=== PATIENT | male | born 1955 | race Caucasian/White ===

== ENCOUNTER 2022-11-29 08:54 | Outpatient (OUT) | payer MEDICARE, SELFPAY ==
--- NOTE | 2022-11-29 09:40 | CA_ITS ---
Patient: CARROL PADILLA Exam Date: 11/29/2022 : 1955 Gender:U Ordering : RAMONA TURNER [facility] Admission #: [id number] Family : DR EDMONDSON PinoMor MERAMARCO Order #: [id number] CLICK HERE TO VIEW EXAM ECHOCARDIOGRAM REPORT PROCEDURE: CA ECHO DOPPLER COMPLETE INDICATIONS: ATRIAL FIBRILLATION COMPARISON: None. DESCRIPTION: COMPLETE ECHOCARDIOGRAM Real-time transthoracic echocardiography with 2D, M-mode, spectral and color flow Doppler performed. QUALITY: Technical quality was limited. PST; [place] 73 248# 140/72 HR 57 LEFT VENTRICLE: Normal chamber size. Proximal septal hypertrophy (sigmoid septum). LV EF: Global left ventricular systolic function is hyperdynamic; visually estimated ejection fraction is 65 to 70%. No obvious regional wall motion abnormalities. DIASTOLIC: Unable to assess diastolic function. ATRIAL SEPTUM: Inadequately seen. LEFT ATRIUM: Mild dilatation. RIGHT ATRIUM: Mild dilatation. RIGHT VENTRICLE: Upper normal limits in size. Normal right ventricular systolic function. TRICUSPID VALVE: Normal mobility and thickness. No stenosis with no regurgitation. Unable to calculate right sided pressures due to lack of measurable tricuspid regurgitation. MITRAL VALVE: Normal mobility and thickness. No evidence of mitral valve stenosis. Mild mitral annular calcification. No mitral regurgitation. AORTIC VALVE: Focal aortic cusp calcification. No evidence of aortic valve stenosis. No aortic regurgitation. AORTIC ROOT: Normal diameter and appearance. PULMONIC VALVE: Not well visualized. No stenosis. Trivial regurgitation. PERICARDIUM: No evidence of pericardial effusion. IVC: Not well visualized. IVC is normal in size and appears to collapse with inspiration. CONCLUSION: 1. Global left ventricular systolic function is hyperdynamic; visually estimated ejection fraction is 65 to 70%. No obvious wall motion abnormalities. 2. Biatrial enlargement. 3. The right ventricle is upper normal limits in size. Normal right ventricular systolic function. 4. No significant valvular abnormalities. Adult Echocardiography Procedure Report Left Ventricle LVEDD (3.7 - 5.6 cm): 5.17 cm LVIVS thickness (0.6 - 1.2 cm): 1.11 cm LVOT Max Gradient: 6.65 mm[Hg] Peak Velocity (LVOT): 1.29 m/s LVOT Diameter 2.26 cm Left Atrium Mitral Valve MV E to A Ratio: 0.90 Right Ventricle RV Internal Diastolic Dimension: 4.05 cm Aorta Ascending Ao Diam: 3.27 cm Aortic Valve AoV Area (Peak Blayne): 3.46 cm2, 3.46 cm2 Peak Velocity(Antegrade Flow): 1.49 m/s, 1.49 m/s Peak Gradient(Antegrade Flow): 8.91 mm[Hg], 8.91 mm[Hg] Tricuspid Valve Pulmonic Valve Peak Gradient: 3.76 mm[Hg], 3.76 mm[Hg] Right Atrium Dictated by: Karina Calle M.D. on 12/01/2022 at 08:52 Approved by: Karina Calle M.D. on 12/01/2022 at 08:59
[2022-11-29] MEDS: SULFUR HEXAFLUORIDE MICROSPHR 25 MG (5ML VIAL) IV (12:09)
== END 2022-11-29 08:55 ==
LOC: CARD 09:03
PROVIDERS: PCP Family Medicine
DX: I48.19 Other persistent atrial fibrillation (principal); I51.7 Cardiomegaly; I51.9 Heart disease, unspecified
CPT/HCPCS: 93306; C8929; Q9950

== ENCOUNTER 2023-03-12 11:22 | Outpatient (OUT) | payer MEDICARE, SELFPAY ==
--- NOTE | 2023-03-12 11:35 | XR_ITS ---
The [address] [address] Patient Name: CARROL PADILLA MRN: [id number] date: 1955 Sex: U Assigned Patient Location: LAB Current Patient Location: LAB Accession/Order Number: [id number] Exam Date: 03/12/2023 11:40 Report Date: 03/12/2023 12:00 At the request of: EROS HUNTER Procedure: XR chest 2V PROCEDURE: XR chest 2V DATE: 03/12/2023 10:40 AM CDT COMPARISONS: 07/19/2012 CLINICAL INDICATION: 67 years Unknown Z79.899 FINDINGS: The cardiomediastinal silhouette and pulmonary vasculature are within normal limits. The lungs are clear. There is no evidence of pleural effusion or pneumothorax. XR/XR chest 2V IMPRESSION: Chest radiograph is within normal limits. Electronically authenticated by: ANUPAM WESTFALL Date: 03/12/2023 12:00
[2023-03-12 12:48] LABS: Free T4 1.06 ng/dL (0.76-1.46)
[2023-03-12 12:53] LABS: Alanine Aminotransferase 44 U/L (14-63); Albumin Level 3.7 g/dL (3.4-5.0); Alkaline Phosphatase 82 U/L (46-116); Aspartate Amino Transferase 26 U/L (15-37); Bilirubin Direct 0.2 mg/dL (0.0-0.2); Bilirubin Total 0.7 mg/dL (0.2-1.0); Globulin 3.6 g/dL; Thyroid Stimulating Hormone 4.468 uIU/mL (0.358-3.740); Total Protein 7.3 g/dL (6.4-8.2)
== END 2023-03-12 11:23 | disposition home or self-care (01) ==
LOC: LAB 11:22
PROVIDERS: PCP Family Medicine; Visit Provider Internal Medicine Cardiovascular Disease
DX: Z79.899 Other long term (current) drug therapy (principal)
CPT/HCPCS: 36415; 71046; 80076; 84439; 84443

== ENCOUNTER 2024-02-19 08:47 | Outpatient (OUT) | payer MEDICARE, SELFPAY ==
--- NOTE | 2024-02-19 09:00 | CA_ITS ---
Patient Name: CARROL PADILLA MR#: [id number] : 1955 Exam Date: 02/19/2024 Ordering Doctor: EROS HUNTER ECHOCARDIOGRAM REPORT PROCEDURE: CA ECHO DOPPLER COMPLETE INDICATIONS: Abnormal ECG, atrial fibrillation, hypertension COMPARISON: None. DESCRIPTION: COMPLETE ECHOCARDIOGRAM Real-time transthoracic echocardiography with 2D, M-mode, spectral and color flow Doppler performed. QUALITY: Technical quality was good. LEFT VENTRICLE: Normal chamber size. Mild concentric hypertrophy. Normal systolic function. LV EF: Normal left ventricular ejection fraction, (55-60%). DIASTOLIC: Diastolic function is indeterminate. ATRIAL SEPTUM: Visually appears intact. LEFT ATRIUM: Mild dilatation. RIGHT ATRIUM: Mild dilatation. RIGHT VENTRICLE: Mild dilatation. Normal right ventricular systolic function. TRICUSPID VALVE: Normal mobility and thickness. No stenosis with no regurgitation. Unable to assess right-sided pressures due to lack of measurable tricuspid regurgitation. MITRAL VALVE: Normal mobility and thickness. No evidence of mitral valve stenosis. Mild mitral annular calcification. Trivial mitral regurgitation. AORTIC VALVE: Normal trileaflet appearance. Normal leaflet mobility. No evidence of aortic valve stenosis. Multifocal calcifications. No aortic regurgitation. AORTIC ROOT: Normal diameter and appearance. Ascending aorta is normal in size. PULMONIC VALVE: Normal thickness and mobility. No stenosis. Trivial regurgitation. PERICARDIUM: No evidence of pericardial effusion. IVC: Within normal limits. PLEURA: CONCLUSION: 1. Mild concentric left ventricular hypertrophy with normal systolic function. LVEF is estimated at 55 to 60%. 2. Mildly dilated right ventricle with normal systolic function. 3. Mild biatrial dilatation. 4. No significant valvular dysfunction. 5. The patient appears to be in sinus rhythm during the exam. Adult Echocardiography Procedure Report Left Ventricle LVEDD (3.7 - 5.6 cm): 4.14 cm LVESD (2.2 - 4.0 cm): 2.74 cm LVIVS thickness (0.6 - 1.2 cm): 1.28 cm LVPW thickness (0.5 - 1.0 cm): 1.17 cm LVOT Max Gradient: 6 mm[Hg] Peak Velocity (LVOT): 123.00 cm/s LVOT Diameter 2.40 cm Left Ventricular Ejection Fraction: 55-60 % Left Atrium LA Volume Index (2D A2C): 90576 mm3 Left Atrium Systolic Dimension: 3.60 cm Mitral Valve MV E to A Ratio: 0.70 Mitral Valve A-Wave Peak Velocity: 85.40 cm/s Mitral Valve E-Wave Peak Velocity: 56.30 cm/s Cardiovascular Orifice Area: 2.20 cm2 Right Ventricle Aorta AO Root Diam: 3.30 cm Aortic Valve AoV Area (Peak Blayne): 4.15 cm2 Peak Velocity(Antegrade Flow): 134.00 cm/s Peak Gradient(Antegrade Flow): 7 mm[Hg] Tricuspid Valve Peak Velocity: 50.60 cm/s Pulmonic Valve Peak Velocity: 94.50 cm/s, 91.20 cm/s Peak Gradient: 3 mm[Hg] Right Atrium Dictated by: Jair Lara M.D. on 02/19/2024 at 19:43 Approved by: Jair Lara M.D. on 02/19/2024 at 19:46
== END 2024-02-19 08:48 | disposition home or self-care (01) ==
LOC: CARD 08:48
PROVIDERS: PCP Family Medicine; Visit Provider Internal Medicine Cardiovascular Disease
DX: R94.31 Abnormal electrocardiogram [ECG] [EKG] (principal)
CPT/HCPCS: 93306

== ENCOUNTER 2024-03-04 09:45 | Outpatient (OUT) | payer MEDICARE, SELFPAY ==
--- OUTSIDE RECORDS SUMMARY | 2024-03-04 10:12 | XMS_ITS | CCD ---
Author Organization [facility] CliniSytn Care Team Providers Care Engineering Specialist Technician Name Role Phone REQUEST, NONE LISTED Attending Unavailable REQUEST, NONE LISTED Consulting Unavailable REQUEST, NONE LISTED Admitting Unavailable Furlong Casey REED Primary Care Provider FURLONG, CASEY G Referring Unavailable FURLONG, CASEY G Primary Care Unavailable FURLONG, CASEY G Referring Unavailable FURLONG, CASEY G Primary Care Unavailable YUHASDESMOND Admitting Unavailable YUHAS, DESMOND Bojorquez Attending Unavailable YUHAS, DESMOND Bojorquez Referring Unavailable FURLONG, CASEY G Primary Care Unavailable YUHASDESMOND Attending Unavailable YUHASDESMOND Referring Unavailable FURLONG, CASEY G Primary Care Unavailable FURLONG, CASEY G Referring Unavailable FURLONG, CASEY G Primary Care Unavailable FURLONG, CASEY G Attending Unavailable FURLONG, CASEY G Referring Unavailable FURLONG, CASEY G Primary Care Unavailable FURLONG, CASEY G Referring Unavailable FURLONG, CASEY G Primary Care Unavailable FURLONG, CASEY G Attending Unavailable FURLONG, CASEY G Referring Unavailable FURLONG, CASEY G Primary Care Unavailable EROS HUNTER Attending Unavailable DALEEROS Lima Attending Unavailable Allergies Allergy Classification Reported Allergen(s) Allergy Type Date of Onset Reaction(s) Facility (1 source) Meperidine Drug Allergy 1 [facility] (5 sources) Morphine; Translations: [MORPHINE] Drug Allergy 8 [facility] (8 sources) Meperidine; Translations: [MEPERIDINE] Drug Allergy 8 Hives, Shortness Of Breath, Swelling [facility] (4 sources) Morphine Drug Allergy 8 Tachycardia, Palpitations [facility] (7 sources) Morphine; Translations: [MORPHINE SULFATE] Drug Allergy 2 Palpitations [facility] Work Phone: Medications Current Medications Medication Drug Class(es) Dates Sig (Normalized) Sig (Original) acetaminophen 325 mg oral tablet (4 sources) take 2 tablets by mouth every six hours as needed for pain acetaminophen (TYLENOL) 325 mg tablet Take 2 tablets (650 mg total) by mouth every 6 (six) hours as needed for pain. 0 Active [id number] 200 actuat albuterol 0.09 mg/actuat metered dose inhaler (4 sources) beta2-Adrenergic Agonist Start: 3 take 2 puff(s) by inhalation every six hours as needed for wheezing albuterol (PROVENTIL HFA;VENTOLIN HFA) 90 mcg/actuation inhaler Indications: Moderate persistent asthma without complication Inhale 2 puffs every 6 (six) hours as needed for wheezing. 18 g 6 10/02/2022 Active amiodarone hydrochloride 200 mg oral tablet (4 sources) Antiarrhythmic Start: 3 End: 5 take 1 tablet by mouth in the morning amiodarone (PACERONE) 200 mg tablet Take 1 tablet (200 mg total) by mouth in the morning. 90 tablet 6 11/09/2022 06/26/2024 Active apixaban 5 mg oral tablet (4 sources) Factor Xa Inhibitor Start: 3 take 1 tablet by mouth in the morning ELIQUIS 5 mg tablet Indications: Atrial fibrillation, unspecified type ([facility]) TAKE 1 TABLET BY MOUTH IN THE MORNING AND 1 TABLET BEFORE BEDTIME 200 tablet 2 12/19/2022 Active atorvastatin 80 mg oral tablet (5 sources) HMG-CoA Reductase Inhibitor Start: 3 End: 4 take 1 tablet by mouth once daily atorvastatin (LIPITOR) 80 mg tablet Indications: Mixed hyperlipidemia TAKE 1 TABLET BY MOUTH ONCE DAILY 100 tablet 0 09/06/2023 Active bisoprolol fumarate 10 mg / hydroCHLOROthiazide 6.25 mg oral tablet (5 sources) Thiazide Diuretic, beta-Adrenergic Bela Start: 3 End: 4 take 1 tablet by mouth once daily bisoprolol-hydroCH LOROthiazide (ZIAC) 10-6.25 mg per tablet TAKE 1 TABLET BY MOUTH DAILY 100 tablet 2 07/07/2023 Active docusate sodium 100 mg oral capsule (4 sources) Start: 3 take 1 capsule by mouth in the morning, then take 1 capsule by mouth at bedtime docusate sodium (COLACE) 100 mg capsule Take 1 capsule (100 mg total) by mouth in the morning and 1 capsule (100 mg total) before bedtime. 0 06/14/2023 Active fluticasone propionate 0.05 mg/actuat metered dose nasal spray (4 sources) Corticosteroid take 2 spray(s) nasal route in the morning fluticasone propionate (FLONASE) 50 mcg/actuation nasal spray Administer 2 sprays into each nostril in the morning and 2 sprays before bedtime. 0 Active fluticasone / salmeterol (4 sources) Corticosteroid, beta2-Adrenergic Agonist Start: 3 fluticasone propion-salmeteroL (ADVAIR) 250-50 mcg/dose DISKUS Ok to give advair 250/25 (not able to electronically prescribe this dose). 1 puff twice a day, 90 day supply x 4 refills 180 each 3 10/09/2022 Active avltc-rd-4-vrf-ntt-svuqk ho-ast 1,000-230-60 mg capsule (4 sources) gzffg-mb-6-dha-e pa -phospho-ast 1,000-230-60 mg capsule Take by mouth daily. 0 Active levocetirizine dihydrochloride 5 mg oral tablet (4 sources) Histamine-1 Receptor Antagonist take 1 tablet by mouth once daily in the evening levocetirizine (XYZAL) 5 mg tablet Take 1 tablet (5 mg total) by mouth every evening. 0 Active levothyroxine sodium 0.025 mg oral tablet (5 sources) l-Thyroxine Start: 3 End: 4 take 1 tablet by mouth in the morning levothyroxine (SYNTHROID, LEVOTHROID) 25 MCG tablet TAKE 1 TABLET BY MOUTH IN THE MORNING 100 tablet 0 08/23/2023 Active lisinopril 10 mg oral tablet (5 sources) Angiotensin Converting Enzyme Inhibitor Start: 3 End: 4 take 1 tablet by mouth once daily lisinopriL (PRINIVIL,ZESTRIL) 10 mg tablet TAKE 1 TABLET BY MOUTH DAILY 100 tablet 2 07/24/2023 Active brghqgov-bgov-AW-calcium &mins (THERAGRAN-M) 9 mg iron-400 mcg tablet (4 sources) ykrtcjcn-ydje-VW -c alcium &mins (THERAGRAN-M) 9 mg iron-400 mcg tablet Take 1 tablet by mouth in the morning. 0 Active [employer] [place] [employer] spacer (4 sources) Start: 9 [facility] [employer] [place] [employer] spacer USE WITH INHALER DIRECTED 1 each 0 06/02/2019 Active Problems Active Problems Problem Classification Problem Date Documented Date Episodic/Chronic Asthma (4 sources) Asthma; Translations: [Unspecified asthma, uncomplicated] Onset: 03-30-2022 03-30-2022 Chronic Cardiac dysrhythmias (8 sources) Atrial fibrillation; Translations: [Unspecified atrial fibrillation] Onset: 03-30-2022 10-11-2022 Chronic Disorders of lipid metabolism (7 sources) Hyperlipidemia; Translations: [Hyperlipidemia, unspecified] Onset: 12-05-2018 12-05-2018 Chronic Diverticulosis and diverticulitis (4 sources) Diverticulosis of large intestine; Translations: [Diverticulosis of large intestine without perforation or abscess without bleeding] Onset: 06-24-2019 06-24-2019 Chronic Esophageal disorders (4 sources) Gastroesophageal reflux disease; Translations: [Gastro-esophageal reflux disease without esophagitis] 12-05-2018 Chronic Essential hypertension (11 sources) Hypertensive disorder; Translations: [Essential (primary) hypertension] Onset: 03-30-2022 12-05-2018 Chronic Hyperplasia of prostate (4 sources) Benign prostatic hyperplasia; Translations: [Benign prostatic hyperplasia without lower urinary tract symptoms] Onset: 03-30-2022 03-30-2022 Chronic Hypertension with complications and secondary hypertension (8 sources) Hypertensive heart disease without congestive heart failure; Translations: [Hypertensive heart disease without heart failure] Onset: 12-06-2018 Resolved: 12-27-2018 03-30-2022 Chronic Osteoarthritis (8 sources) Osteoarthritis; Translations: [Unspecified osteoarthritis, unspecified site] Onset: 03-25-2018 03-30-2022 Chronic Other and unspecified benign neoplasm (1 source) Personal history of colonic polyps; Translations: [Personal history of colonic polyps] Onset: 10-21-2023 Episodic Other and unspecified benign neoplasm (1 source) Polyp of colon; Translations: [Polyp of colon] Onset: 11-02-2023 Episodic Other connective tissue disease (4 sources) Hip joint prosthesis present; Translations: [Presence of right artificial hip joint] Onset: 03-30-2022 03-30-2022 Chronic Other lower respiratory disease (4 sources) Interstitial lung disease; Translations: [Interstitial pulmonary disease, unspecified] Onset: 10-11-2022 10-11-2022 Chronic Other lower respiratory disease (1 source) Interstitial pulmonary disease, unspecified; Translations: [Interstitial pulmonary disease, unspecified] Onset: 10-11-2022 Chronic Other non-traumatic joint disorders (4 sources) Arthritis of hip; Translations: [Other specified arthritis, right hip] Onset: 03-25-2018 03-25-2018 Chronic Other nutritional; endocrine; and metabolic disorders (4 sources) Obesity caused by energy imbalance; Translations: [Other obesity due to excess calories] Onset: 12-30-2019 06-15-2023 Chronic Other nutritional; endocrine; and metabolic disorders (4 sources) Body mass index 30+ - obesity; Translations: [Body mass index (BMI) 32.0-32.9, adult] Onset: 04-05-2022 04-05-2022 Chronic Spondylosis; intervertebral disc disorders; other back problems (4 sources) Degeneration of cervical intervertebral disc; Translations: [Other cervical disc degeneration, unspecified cervical region] Onset: 05-04-2016 03-30-2022 Chronic Thyroid disorders (2 sources) Hypothyroidism, unspecified; Translations: [Hypothyroidism, unspecified] Onset: 10-03-2023 Chronic Unclassified (4 sources) Normal coronary arteries; Translations: [Normal coronary arteries] Onset: 12-27-2018 12-27-2018 Unclassified (1 source) history of colon polyps Onset: 11-02-2023 Unclassified (1 source) med recheck Onset: 10-03-2023 Unclassified (2 sources) Other persistent atrial fibrillation; Translations: [Other persistent atrial fibrillation] Onset: 11-09-2022 Past or Other Problems Problem Classification Problem Date Documented Date Episodic/Chronic Anal and rectal conditions (4 sources) Anal fissure; Translations: [Anal fissure, unspecified] Onset: 07-15-2020 03-30-2022 Episodic Diabetes mellitus without complication (6 sources) Impaired fasting glycemia; Translations: [Impaired fasting glucose] Onset: 03-30-2022 03-30-2022 Episodic Mood disorders (4 sources) Mood disorders Onset: 06-14-2023 06-14-2023 Neoplasms of unspecified nature or uncertain behavior (4 sources) Neoplasm of uncertain behavior of skin of forearm; Translations: [Neoplasm of uncertain behavior of skin] Onset: 03-30-2022 03-30-2022 Episodic Other and unspecified benign neoplasm (8 sources) History of polyp of colon; Translations: [Personal history of colonic polyps] Onset: 05-29-2019 05-29-2019 Episodic Other and unspecified benign neoplasm (4 sources) Polyp of ascending colon; Translations: [Polyp of colon] Onset: 06-24-2019 06-24-2019 Episodic Other and unspecified benign neoplasm (4 sources) Polyp of transverse colon; Translations: [Polyp of colon] Onset: 06-24-2019 06-24-2019 Episodic Other and unspecified benign neoplasm (1 source) Benign neoplasm of colon, unspecified; Translations: [Benign neoplasm of colon, unspecified] Onset: 10-03-2023 Episodic Other diseases of kidney and ureters (2 sources) Disorder of kidney and ureter, unspecified; Translations: [Disorder of kidney and ureter, unspecified] Onset: 10-03-2023 Episodic Other lower respiratory disease (4 sources) Dyspnea on exertion; Translations: [Other forms of dyspnea] Onset: 12-27-2018 12-27-2018 Episodic Other nervous system disorders (3 sources) Tremor, unspecified; Translations: [Tremor, unspecified] Onset: 06-14-2023 Episodic Other nervous system disorders (1 source) Ataxia, unspecified; Translations: [Ataxia, unspecified] Onset: 06-14-2023 Episodic Other non-traumatic joint disorders (4 sources) Arthralgia of the pelvic region and thigh; Translations: [Pain in unspecified hip] Onset: 03-30-2022 03-30-2022 Episodic Other non-traumatic joint disorders (4 sources) Pain in left knee; Translations: [Pain in joint, lower leg] Onset: 03-30-2022 03-30-2022 Episodic Other screening for suspected conditions (not mental disorders or infectious disease) (6 sources) Cardiovascular stress test abnormal; Translations: [Abnormal result of other cardiovascular function study] Onset: 06-14-2023 12-09-2018 Episodic Other skin disorders (4 sources) Actinic keratosis; Translations: [Actinic keratosis] Onset: 11-29-2015 03-30-2022 Episodic Residual codes; unclassified (1 source) Other amnesia; Translations: [Other amnesia] Onset: 10-03-2023 Episodic Unclassified (4 sources) Onset: 02-05-2023 02-05-2023 Results Test Name Value Interpretation Reference Range Facility Abstracton 02-28-2024 Abstract [id number] Carrol Vega 1955 [facility] Provider Department Center 02/28/2024 EROS BURRELL [facility] L[facility] [place] Family History Problem Relation Age of Onset Heart attack Mother Heart attack Brother Family Status - Relation Status Age at Mother Brother Normal [facility] Orders Onlyon 02-07-2024 Orders Only [id number] Carrol Vega 1955 [facility] 02/07/2024 [facility] Family History Problem Relation Age of Onset Heart attack Mother Heart attack Brother Family Status - Relation Status Age at Mother Brother Normal [facility] Prep for Procedureon 024 Prep for Procedure [id number] Carrol Vega 1955 [facility] 02/07/2024 1988-SOFIA CISNEROS [facility] [place] [facility] Family History Problem Relation Age of Onset Heart attack Mother Heart attack Brother Family Status - Relation Status Age at Mother Brother Normal [facility] Office Visiton 02-05-2024 Follow-up visit [id number] Carrol Vega 1955 [facility] 02/05/2024 EROS BURRELL [facility] Family History Problem Relation Age of Onset Heart attack Mother Heart attack Brother Family Status - Relation Status Age at Mother Brother Level of Service:11373 UT OFFICE/OUTPATIENT ESTABLISHED HIGH MDM 40 MIN Normal [facility] Orders Onlyon 02-05-2024 Orders Only [id number] Carrol Vega 1955 M Date Provider Department Center 02/05/2024 LINUS RANDALL LALY Us Family History Problem Relation Age of Onset Heart attack Mother Heart attack Brother Family Status - Relation Status Age at Mother Brother Normal [facility] Orders Onlyon 01-31-2024 Orders Only [id number] Carrol Vega 1955 M Date Provider Department Center 01/31/2024 LINUS RANDALL Family History Problem Relation Age of Onset Heart attack Mother Heart attack Brother Family Status - Relation Status Age at Mother Brother Normal [facility] Surgical Pathologyon 024 Surgical Pathology Normal [facility] Comment on above: Result Comment: [facility] [address] [place] [address] Surgical Pathology Consultation Patient Name:CARROL VEGA:1955 (Age: 68)Gender:MTaken:4Reported:11/07/2023hysician(s):Desmond Cuevas MD ([phone])Copy To: Rec. #:[id number]: #[id number] Final Pathologic Diagnosis 1. Ascending colon polyps x2: Tubular adenomas. 2. Colon polyp at 110 cm: Tubular adenoma. 3. Colon polyp: Tubular adenoma. 4. Colon polyp at 80cm: Tubular adenoma fragments. Report Electronically Signed Out st11/07/2023Vianey Seals MD Interpretation performed at [facility], [address] [place] [address], License number: [id number]. Clinical History History of colon polyps. 1. Snared polyps x2. 2. Snared a polyp at 110cm. 3. Snared a polyp. 4. Snared a polyp at 80cm. Gross Description 1. Received in formalin labeled VALERIE ascending colon polyp are light blas soft tissue fragments, 0.8 x 0.3 x 0.2 cm in aggregate. The specimen is filtered and entirely submitted in a single cassette. (1, ns, [id number],m3) DM. 2. .Received in formalin labeled [facility], polyp at 110 cm is a light blas soft tissue bit, 0.4 cm. The specimen is filtered and entirely submitted in a single cassette. (1, ns, [id number],m3) DM. 3. Received in formalin labeled [facility], polyp at 85 cm is a light blas soft tissue bit, 0.6 cm. The specimen is filtered and entirely submitted in a single cassette. (1, ns, [id number],m3) DM. 4. Received in formalin labeled [facility], polyp at 80 cm are two light blas soft tissue bits, 0.2 and 0.3 cm. The specimen is filtered and entirely submitted in a single cassette. (1, ns, [id number],m3) DM. dm/11/03/2023GP Specimen(s) Received 1: Ascending colon polyps x2 2: Colon polyp at 110 cm 3: Colon polyp 4: Colon polyp at 80cm Fee Codes(s): 1; 59213 2; 53628 3; 53429 4; 21354 BASIC METABOLIC PANLon 10-02 Anion gap [Moles/Vol] 8 mmol/L Normal 5-15 [facility] Comment on above: Performed By: #### T HYR, BMP #### [facility] ([id number]) [address], [address] [place] [address] Calcium [Mass/Vol] 9.4 mg/dL Normal 8.5-10.5 [facility] Comment on above: Performed By: #### T HYR, BMP #### [facility] ([id number]) [address], [address] [place] [address] Chloride [Moles/Vol] 109 mmol/L Normal 98-109 [facility] Comment on above: Performed By: #### T HYR, BMP #### [facility] ([id number]) [address], [address] [place] [address] CO2 [Moles/Vol] 26 mmol/L Normal 22-32 [facility] Comment on above: Performed By: #### MIKE SON #### [facility] ([id number]) [address], [address] [place] [address] Creatinine [Mass/Vol] 1.48 mg/dL High 0.60-1.30 [facility] Comment on above: Result Comment: METH OD TRACEABLE TO IDMS STANDARD Performed By: #### MIKE SON #### [facility] ([id number]) [address], [address] [place] [address] GFR/1.73 sq M.predicted among non-blacks MDRD (S/P/Bld) [Vol rate/Area] 51 mL/min/{1.73_m2} Low >59 [facility] Comment on above: Result Comment: Reported eGFR is based on the CKD-EPI 2020 equation that does not use a race coefficient. Performed By: #### MIKE SON #### [facility] ([id number]) [address], [address] [place] [address] Glucose [Mass/Vol] 110 mg/dL High 65-99 [facility] Comment on above: Performed By: #### Jessica LUGO BMP #### [facility] ([id number]) [address], [address] [place] [address] Potassium [Moles/Vol] 3.8 mmol/L Normal 3.5-5.0 [facility] Comment on above: Performed By: #### Jessica LUGO BMP #### [facility] ([id number]) [address], [address] [place] [address] Sodium [Moles/Vol] 143 mmol/L Normal 134-146 [facility] Comment on above: Performed By: #### Jessica LUGO BMP #### [facility] ([id number]) [address], [address] [place] [address] Urea nitrogen [Mass/Vol] 20 mg/dL Normal 5-27 [facility] Comment on above: Performed By: #### T HYR, BMP #### [facility] ([id number]) [address], [address] [place] [address] THYROID PROFILEon 10-03-2023 Free T4 [Mass/Vol] 1.12 ng/dL Normal 0.61-1.60 [facility] Comment on above: Performed By: #### T HYR, BMP #### [facility] ([id number]) [address], [address] [place] [address] TSH 4.67 uIU/mL Normal 0.49-4.67 [facility] Comment on above: Performed By: #### T HYR, BMP #### [facility] ([id number]) [address], [address] [place] [address] AMIODARONE SERUMon AMIODARONE 0.6 ug/mL Low 1.5-2.5 [facility] Comment on above: Result Comment: NOTE Reference ranges and high/low indicator flags are provided as general guidelines only. The treating physician must determine appropriate target levels/dosing based on the specific clinical situation. This test was developed and its performance characteristics determined by [facility] Tej Acosta [facility] Pathology and Laboratory Medicine [place] ([facility]). It has not been cleared or approved by the FDA. [facility] is regulated under CLIA as qualified to perform high-complexity testing. This test is used for clinical purposes. It should not be regarded as investigational or for research. Performed By: #### A SYLVIA #### [facility] ([id number]) [address] [place] [address], [place] [address] DESETHYLAMIODARONE 0.5 ug/mL Low 1.5-2.5 [facility] Comment on above: Result Comment: NOTE Reference ranges and high/low indicator flags are provided as general guidelines only. The treating physician must determine appropriate target levels/dosing based on the specific clinical situation. Test Performed By: [facility] [address] [place] [address] Graphic Coordinator: Luz Chew III #[id number] Performed By: #### A SYLVIA #### [facility] ([id number]) [address] [place] [facility] [place] [address] COMPLETE BLOOD COUNTon 06-14 Erythrocyte distribution width (RBC) [Ratio] 14.8 % Normal 11.5-15.0 [facility] Comment on above: Performed By: #### 2 4331-1, 3016-3, CMP, CBC #### [facility] ([id number]) [address], [address] [place] [address] Hematocrit (Bld) [Volume fraction] 41.0 % Normal 39-49 [facility] Comment on above: Performed By: #### 2 4331-1, 3015-3, CMP, CBC #### [facility] ([id number]) [address], [address] [place] [address] Hemoglobin (Bld) [Mass/Vol] 14.0 g/dL Normal 13.0-17.0 [facility] Comment on above: Performed By: #### 2 4331-1, 3016-3, CMP, CBC #### [facility] ([id number]) [address], [address] [place] [address] MCH (RBC) [Entitic mass] 27.0 pg Normal 27-34 [facility] Comment on above: Performed By: #### 2 4331-1, 3016-3, CMP, CBC #### [facility] ([id number]) [address], [address] [place] [address] MCHC (RBC) [Mass/Vol] 34.1 g/dL Normal 32-36 [facility] Comment on above: Performed By: #### 2 4331-1, 6-3, CMP, CBC #### [facility] ([id number]) [address] [address] [place] [address] MCV (RBC) [Entitic vol] 79 fL Low 80-100 [facility] Comment on above: Performed By: #### 2 4331-1, 3016-3, CMP, CBC #### [facility] ([id number]) [address] [address] [place] [address] Platelet mean volume (Bld) [Entitic vol] 7.6 fL Normal 7-12 [facility] Comment on above: Performed By: #### 2 4331-1, 3016-3, CMP, CBC #### [facility] ([id number]) [address] [address] Platelets (Bld) [#/Vol] 203 10*3/uL Normal 150-450 [facility] Comment on above: Performed By: #### 2 4331-1, 6-3, CMP, CBC #### [facility] ([id number]) [address] [address] RBC COUNT 5.18 X10E12/L Normal 4.10-5.70 [facility] Comment on above: Performed By: #### 2 4331-1, 3016-3, CMP, CBC #### [facility] ([id number]) [address] [address] WBC (Bld) [#/Vol] 5.6 10*3/uL Normal 4.0-11.0 [facility] Comment on above: Performed By: #### 2 4331-1, 3016-3, CMP, CBC #### [facility] ([id number]) [address] [address] [place] [address] COMPREHENSIVE METABOLIC PANE Benson 06-14-2023 Albumin [Mass/Vol] 4.5 g/dL Normal 3.2-5.3 [facility] Comment on above: Performed By: #### 2 4331-1, 3016-3, CMP, CBC #### [facility] ([id number]) [address] [place] [address] ALP [Catalytic activity/Vol] 55 U/L Normal 39-130 [facility] Comment on above: Performed By: #### 2 4331-1, 6-3, CMP, CBC #### [facility] ([id number]) [address], [address] [place] [address] ALT [Catalytic activity/Vol] 26 U/L Normal 0-40 [facility] Comment on above: Performed By: #### 2 4331-1, 3015-3, CMP, CBC #### [facility] ([id number]) [address] [place] [address] Anion gap [Moles/Vol] 12 mmol/L Normal 5-15 [facility] Comment on above: Performed By: #### 2 4331-1, 3015-3, CMP, CBC #### [facility] ([id number]) [address] [address] [place] [address] AST [Catalytic activity/Vol] 24 U/L Normal 0-41 [facility] Comment on above: Performed By: #### 2 4331-1, 3015-3, CMP, CBC #### [facility] ([id number]) [address], [address] [place] [address] Bilirubin [Mass/Vol] 0.7 mg/dL Normal 0.3-1.2 [facility] Comment on above: Performed By: #### 2 4331-1, 6-3, CMP, CBC #### [facility] ([id number]) [address], [address] [place] [address] Calcium [Mass/Vol] 9.8 mg/dL Normal 8.5-10.5 [facility] Comment on above: Performed By: #### 2 4331-1, 3016-3, CMP, CBC #### [facility] ([id number]) [address], [address] [place] [address] Chloride [Moles/Vol] 107 mmol/L Normal 98-109 [facility] Comment on above: Performed By: #### 2 4331-1, 3016-3, CMP, CBC #### [facility] ([id number]) [address], [address] [place] [address] CO2 [Moles/Vol] 24 mmol/L Normal 22-32 [facility] Comment on above: Performed By: #### 2 4331-1, 3015-3, CMP, CBC #### [facility] ([id number]) [address], [address] [place] [address] Creatinine [Mass/Vol] 1.25 mg/dL Normal 0.60-1.30 [facility] Comment on above: Result Comment: METH OD TRACEABLE TO IDMS STANDARD Performed By: #### 2 4331-1, 3015-3, CMP, CBC #### [facility] ([id number]) [address], [address] [address] GFR/1.73 sq M.predicted among non-blacks MDRD (S/P/Bld) [Vol rate/Area] 63 mL/min/{1.73_m2} Normal >59 [facility] Comment on above: Result Comment: Reported eGFR is based on the CKD-EPI 2020 equation that does not use a race coefficient. Performed By: #### 2 4331-1, 3016-3, CMP, CBC #### [facility] ([id number]) [address], [address] [place] [address] Glucose [Mass/Vol] 87 mg/dL Normal 65-99 [facility] Comment on above: Performed By: #### 2 4331-1, 3016-3, CMP, CBC #### [facility] ([id number]) [address], [address] [place] [address] Potassium [Moles/Vol] 4.1 mmol/L Normal 3.5-5.0 [facility] Comment on above: Performed By: #### 2 4331-1, 3016-3, CMP, CBC #### [facility] ([id number]) [address], [address] [place] [address] Protein [Mass/Vol] 7.6 g/dL Normal 6.0-8.0 [facility] Comment on above: Performed By: #### 2 4331-1, 3016-3, CMP, CBC #### [facility] ([id number]) [address], [address] [place] [address] Sodium [Moles/Vol] 143 mmol/L Normal 134-146 [facility] Comment on above: Performed By: #### 2 4331-1, 6-3, CMP, CBC #### [facility] ([id number]) [address], [address] [place] [address] Urea nitrogen [Mass/Vol] 17 mg/dL Normal 5-27 [facility] Comment on above: Performed By: #### 2 4331-1, 3016-3, CMP, CBC #### [facility] ([id number]) [address], [address] [place] [address] HGB A1C (GLYCO-HGB)on 2022 Glucose [Mass/Vol] 117 mg/dL Normal [facility] Comment on above: Performed By: #### 2 4331-1, 3016-3, CMP, CBC #### [facility] ([id number]) [address], [address] [place] [address] HbA1c (Bld) [Mass fraction] 5.7 % High 4.4-5.6 [facility] Comment on above: Result Comment: NOTE ADA Guidelines Result HgbA1c Normal : less than 5.7 % Prediabetes : 5.7 % to 6.4 % Diabetes : > 6.4 % Use with caution in patients with abnormal hemoglobin variants as the half-life of red blood cells and in vivo glycation rates are affected. Performed By: #### 2 4331-1, 3016-3, CMP, CBC #### [facility] ([id number]) [address], [address] [address] Lipid 1996 panelon 3 Cholesterol [Mass/Vol] 151 mg/dL Normal 150-200 [facility] Comment on above: Performed By: #### 2 4331-1, 3015-3, CMP, CBC #### [facility] ([id number]) [address], [facility] [address] [place] [address] Cholesterol in HDL [Mass/Vol] 47 mg/dL Normal >39 [facility] Comment on above: Result Comment: HDL <40 mg/dL - High Risk HDL > or = 40mg/dL- Desirable HDL >60 mg/dL - Negative Risk Performed By: #### 2 4331-1, 6-3, CMP, CBC #### [facility] ([id number]) [address], [address] [place] [address] Cholesterol in LDL [Mass/Vol] 72 mg/dL Normal <130 [facility] Comment on above: Result Comment: LDL <100 mg/dL - Desirable LDL >160 mg/dL - High Risk Performed By: #### 2 4331-1, 6-3, CMP, CBC #### [facility] ([id number]) [address], [address] [place] [address] Cholesterol in VLDL [Mass/Vol] 32 mg/dL High 0-30 [facility] Comment on above: Performed By: #### 2 4331-1, 3016-3, CMP, CBC #### [facility] ([id number]) [address], [address] [place] [address] CHOLESTEROL:HDL 3.2 Normal 1.0-5.0 [facility] Comment on above: Performed By: #### 2 4331-1, 3016-3, CMP, CBC #### [facility] ([id number]) [address], [address] [place] [address] Triglyceride [Mass/Vol] 162 mg/dL High 27-150 [facility] Comment on above: Performed By: #### 2 4331-1, 3016-3, CMP, CBC #### [facility] ([id number]) [address], [address] [place] [address] TSH Qnon 06-14-2023 TSH 5.65 uIU/mL High 0.49-4.67 [facility] Comment on above: Performed By: #### 2 4331-1, 3016-3, CMP, CBC #### [facility] ([id number]) [address], [address] [place] [address] Office Visiton 05-29-2023 Follow-up visit [id number] Carrol Vega 1955 M Date Provider Department Center 05/29/2023 [facility]LL [facility] Family History Problem Relation Age of Onset Heart attack Mother Heart attack Brother Family Status - Relation Status Age at Mother Brother Level of Service:27975 UT OFFICE/OUTPATIENT NEW MODERATE MDM 45-59 MINUTES Normal [facility] COMPREHENSIVE METABOLIC PANE Benson 08-25-2021 Albumin [Mass/Vol] 4.4 g/dL Normal 3.6-5.1 [facility] Comment on above: Performed By: #### 7 600, 66021 #### [facility] of [address], [address] [place] [address] Barrel Stave Inspector: Jairo Aceves MD Albumin/Globulin [Mass ratio] 1.9 {ratio} Normal 1.0-2.5 [facility] Comment on above: Performed By: #### 7 600, 12877 #### [facility] of [address], [address] [place] [address] Barrel Stave Inspector: Jairo Aceves MD ALP [Catalytic activity/Vol] 76 U/L Normal 35-144 [facility] Comment on above: Performed By: #### 7 600, 64083 #### [facility] of [address], [address] [place] [address] Barrel Stave Inspector: Jairo Aceves MD ALT [Catalytic activity/Vol] 23 U/L Normal 9-46 [facility] Comment on above: Performed By: #### 7 600, 10508 #### [facility] of [address], [address] [place] [address] Barrel Stave Inspector: Jairo Aceves MD AST [Catalytic activity/Vol] 19 U/L Normal 10-35 [facility] Comment on above: Performed By: #### 7 600, 26200 #### [facility] of [place] [address] Barrel Stave Inspector: Jairo Aceves MD Bilirubin [Mass/Vol] 0.6 mg/dL Normal 0.2-1.2 [facility] Comment on above: Performed By: #### 7 600, 85828 #### [facility] of [address], [address] [place] [address] Barrel Stave Inspector: Jairo Aceves MD BUN/CREATININE RATIO NOT APPLICABLE Normal 6-22 [facility] Comment on above: Performed By: #### 7 600, 09083 #### [facility] of [address], [address] [place] [address] Barrel Stave Inspector: Jairo Aceves MD Calcium [Mass/Vol] 9.6 mg/dL Normal 8.6-10.3 [facility] Comment on above: Performed By: #### 7 600, 59848 #### [facility] [address], [address] [place] [address] Barrel Stave Inspector: Jairo Aceves MD Chloride [Moles/Vol] 106 mmol/L Normal 98-110 [facility] Comment on above: Performed By: #### 7 600, 96952 #### [facility] of [address], [address] [place] [address] Barrel Stave Inspector: Jairo Aceves MD CO2 [Moles/Vol] 29 mmol/L Normal 20-32 [facility] Comment on above: Performed By: #### 7 600, 89179 #### [facility] of [place] [address] Barrel Stave Inspector: Jairo Aceves MD Creatinine [Mass/Vol] 1.06 mg/dL Normal 0.70-1.25 [facility] Comment on above: Result Comment: For patients >49 years of age, the reference limit for Creatinine is approximately 13% higher for people identified as -Israeli. Performed By: #### 7 600, 36577 #### [facility] [place] [address] Barrel Stave Inspector: Jairo Aceves MD eGFR NON-AFR. LUXEMBOURGER 73 mL/min/1.73m2 Normal > OR = 60 [facility] Comment on above: Performed By: #### 7 600, 47795 #### [facility] of [place] [address] Barrel Stave Inspector: Jairo Aceves MD GFR/1.73 sq M.predicted among blacks MDRD (S/P/Bld) [Vol rate/Area] 84 mL/min/{1.73_m2} Normal > OR = 60 [facility] Comment on above: Performed By: #### 7 600, 56156 #### [facility] of [address], [address] [place] [address] Barrel Stave Inspector: Jairo Aceves MD Globulin (S) [Mass/Vol] 2.3 g/dL Normal 1.9-3.7 [facility] Comment on above: Performed By: #### 7 600, 12869 #### [facility] [place] [address] Barrel Stave Inspector: Jairo Aceves MD Glucose [Mass/Vol] 115 mg/dL High 65-99 [facility] Comment on above: Result Comment: Fasting reference interval For someone without known diabetes, a glucose value between 100 and 125 mg/dL is consistent with prediabetes and should be confirmed with a follow-up test. Performed By: #### 7 600, 47147 #### [facility] [address], [address] [place] [address] Barrel Stave Inspector: Jairo Aceves MD Potassium [Moles/Vol] 4.0 mmol/L Normal 3.5-5.[address] [facility] Comment on above: Performed By: #### 7 600, 18746 #### [facility] [place] [address] Barrel Stave Inspector: Jairo Aceves MD Protein [Mass/Vol] 6.7 g/dL Normal 6.1-8.1 [facility] Comment on above: Performed By: #### 7 600, 88222 #### [facility] [place] [address] Barrel Stave Inspector: Jairo Aceves MD Sodium [Moles/Vol] 142 mmol/L Normal 135-146 [facility] Comment on above: Performed By: #### 7 600, 62916 #### [facility] [place] [address] Barrel Stave Inspector: Jairo Aceves MD Urea nitrogen [Mass/Vol] 16 mg/dL Normal 7-25 [facility] Comment on above: Performed By: #### 7 600, 37051 #### [facility] [place] [address] Barrel Stave Inspector: Jairo Aceves MD LIPID PANEL, STANDARD Cholesterol [Mass/Vol] 156 mg/dL Normal <200 [facility] Comment on above: Order Comment: FASTI NG:YES FASTING: YES Performed By: #### 7 600, 99778 #### [facility] [address], [address] [place] [address] Barrel Stave Inspector: Jairo Aceves MD Cholesterol in HDL [Mass/Vol] 43 mg/dL Normal > OR = 40 [facility] Comment on above: Order Comment: FASTI NG:YES FASTING: YES Performed By: #### 7 600, 11909 #### [facility] [address], [address] [place] [address] Barrel Stave Inspector: Jairo Aceves MD Cholesterol in LDL [Mass/Vol] 84 mg/dL Normal [facility] Comment on above: Order Comment: FASTI NG:YES FASTING: YES Result Comment: Refe rence range: <100 Desirable range <100 mg/dL for primary prevention; <70 mg/dL for patients with CHD or diabetic patients with > or = 2 CHD risk factors. LDL-C is now calculated using the Hipolito calculation, which is a validated novel method providing better accuracy than the Friedewald equation in the estimation of LDL-C. Bandar KHANNA et al. LENORA. 2013;310(19): 9640-5047 (http://education.Fluential.HeatGear/faq/PXE248) Performed By: #### 7 600, 12276 #### [facility] [address], [address] [place] [address] Barrel Stave Inspector: Jairo Aceves MD Cholesterol.total/Roseline sterol in HDL [Mass ratio] 3.6 {ratio} Normal <5.0 [facility] Comment on above: Order Comment: FASTI NG:YES FASTING: YES Performed By: #### 7 600, 21609 #### [facility] [address], [address] [place] [address] Barrel Stave Inspector: Jairo Aceves MD NON HDL CHOLESTEROL 113 mg/dL (calc) Normal <130 [facility] Comment on above: Order Comment: FASTI NG:YES FASTING: YES Result Comment: For patients with diabetes plus 1 major ASCVD risk factor, treating to a non-HDL-C goal of <100 mg/dL (LDL-C of <70 mg/dL) is considered a therapeutic option. Performed By: #### 7 600, 29504 #### [facility] [address], [address] [place] [address] Barrel Stave Inspector: Jairo Aceves MD Triglyceride [Mass/Vol] 197 mg/dL High <150 [facility] Comment on above: Order Comment: FASTI NG:YES FASTING: YES Performed By: #### 7 600, 91092 #### [facility] [address], [address] [place] [address] Barrel Stave Inspector: Jairo Aceves MD BASIC METABOLIC PANELon 01-23 BUN/CREATININE RATIO NOT APPLICABLE Normal 6-22 [facility] Comment on above: Performed By: #### 1 0165 #### [facility] [address], [address] [place] [address] Barrel Stave Inspector: Jairo Aceves MD Calcium [Mass/Vol] 9.9 mg/dL Normal 8.6-10.3 [facility] Comment on above: Performed By: #### 1 0165 #### [facility] [address], [address] [place] [address] Barrel Stave Inspector: Jairo Aceves MD Chloride [Moles/Vol] 108 mmol/L Normal 98-110 [facility] Comment on above: Performed By: #### 1 0165 #### [facility] [address], [address] [place] [address] Barrel Stave Inspector: Jairo Aceves MD CO2 [Moles/Vol] 24 mmol/L Normal 20-32 [facility] Comment on above: Performed By: #### 1 0165 #### [facility] [address], [address] [place] [address] Barrel Stave Inspector: Jairo Aceves MD Creatinine [Mass/Vol] 1.15 mg/dL Normal 0.70-1.[address] [facility] Comment on above: Result Comment: For patients >49 years of age, the reference limit for Creatinine is approximately 13% higher for people identified as -Israeli. Performed By: #### 1 0165 #### [facility] [place] [address] Barrel Stave Inspector: Jairo Aceves MD eGFR NON-AFR. LUXEMBOURGER 66 mL/min/1.73m2 Normal > OR = 60 [facility] Comment on above: Performed By: #### 1 0165 #### [facility] [place] [address] Barrel Stave Inspector: Jairo Aceves MD GFR/1.73 sq M.predicted among blacks MDRD (S/P/Bld) [Vol rate/Area] 76 mL/min/{1.73_m2} Normal > OR = 60 [facility] Comment on above: Performed By: #### 1 0165 #### [facility] [place] [address] Barrel Stave Inspector: Jairo Aceves MD Glucose [Mass/Vol] 116 mg/dL High 65-99 [facility] Comment on above: Result Comment: Fasting reference interval For someone without known diabetes, a glucose value between 100 and 125 mg/dL is consistent with prediabetes and should be confirmed with a follow-up test. Performed By: #### 1 0165 #### [facility] [place] [address] Barrel Stave Inspector: Jairo Aceves MD Potassium [Moles/Vol] 4.3 mmol/L Normal 3.5-5.[address] [facility] Comment on above: Performed By: #### 1 0165 #### [facility] [place] [address] Barrel Stave Inspector: Jairo Aceves MD Sodium [Moles/Vol] 142 mmol/L Normal 135-146 [facility] Comment on above: Performed By: #### 1 0165 #### [facility] [place] [address] Barrel Stave Inspector: Jairo Aceves MD Urea nitrogen [Mass/Vol] 14 mg/dL Normal 7-25 [facility] Comment on above: Performed By: #### 1 0165 #### [facility] [address], [address] [place] [address] Barrel Stave Inspector: Jairo Aceves MD Encounters Encounter Date Encounter Type Care Provider Facility Start: 02-05-2024 End: 02-05-2024 ambulatory [facility] Start: 02-05-2024 End: 02-05-2024 ambulatory [facility] Start: 11-02-2023 End: 11-03-2023 Evaluation and management of inpatient [facility] Start: 10-04-2023 End: 10-04-2023 ambulatory [facility] Start: 10-03-2023 End: 10-03-2023 ambulatory [facility] Start: 09-03-2023 Refill Caseyjohann Perkinslo ng DO Work Phone: [facility] Comment on above: Mixed hyperlipidemia (Primary Dx) Start: 08-23-2023 Refill Caseyjohann Perkinslo ng DO Work Phone: [facility] Start: 07-23-2023 Refill Casey Perkinslo ng DO Work Phone: [facility] Start: 07-06-2023 Refill Caseyjohann Perkinslo ng DO Work Phone: [facility] Start: 06-15-2023 End: 06-16-2023 ambulatory [facility] Start: 06-14-2023 End: 06-15-2023 ambulatory [facility] Start: 06-14-2023 End: 06-14-2023 ambulatory [facility] Start: 05-29-2023 End: 05-29-2023 ambulatory [facility] Start: 08-23-2020 End: 08-24-2020 Patient encounter procedure NONE LISTED REQUEST Facility:[facility]1 Procedures Date Procedure Procedure Detail Performing Clinician Start: 06-14-2023 Adult depression screening assessment Casey Fitzgerald DO Work Phone: Plan of Treatment Date Care Activity Detail Author Start: 02-02-2031 DTaP,Tdap and Td Vaccines (3 - Td or Tdap) DTaP,Tdap and Td Vaccines (3 - Td or Tdap) [facility] Start: 06-24-2024 Screening for malignant neoplasm of colon Colon Cancer Screening 5 Year Sigmoidoscopy [facility] Comment on above: Postponed from 10/22 (Not Indicated) Start: 06-14-2024 Adult BMI Screening Adult BMI Screen ing [facility] Start: 06-14-2024 Depression Screening Depression Scre ening [facility] Start: 06-14-2024 Fall Risk Screening Fall Risk Screen ing [facility] Start: 06-14-2024 Tobacco Screening Tobacco Screening [facility] Start: 04-21-2024 End: 04-21-2024 Patient encounter procedure 04/21/2024 10:45 AM EDT Office Visit [facility] [address] [place] [id number] Sherin Costa MD [address] [facility] [address] [place] [address] [facility] Start: 02-05-2024 End: 02-05-2024 Patient encounter procedure 02/05/2024 10:00 AM EDT Office [facility] [address] [place] [address] [facility] Start: 01-31-2024 Medicare Annual Wellness Visit Medicare Annual Wellness Visit [facility] Start: 01-24-2024 Adult BMI Follow Up Plan Adult BMI Follow Up Plan [facility] Start: 10-03-2023 End: 10-03-2023 Patient encounter procedure 10/03/2023 10:45 AM EDT Office Visit [facility] [address] [place] [address] Casey Fitzgerald DO [address] [place] [address] [facility] Start: 09-21-2023 End: 09-21-2023 Patient encounter procedure 09/21/2023 10:00 AM EDT Office [facility] [address] [place] [id number] MaddieCasey romero Pino DO [address] [place] [address] [facility] Start: 09-19-2023 End: 09-19-2023 Patient encounter procedure 09/19/2023 9:00 AM EDT Office Visit [facility] [address] [place] [id number] MaddieCasey romero Pino DO [address] [place] [address] [facility] Start: 05-12-2023 COVID-19 Vaccine ( season) COVID-19 Vaccine ( season) [facility] Immunizations Immunization Date Immunization Notes Care Provider Fa cili 03-17-2023 Influenza Vaccine, Quadrivalent, Adjuvanted Casey Maddieheather DO Work Phone: [facility] 03-17-2023 RSV, recombinant, protein subunit RSVpreF, adjuvant reconstituted, 0.5 mL, PF Casey Maddieheather DO Work Phone: [facility] 02-19-2023 zoster vaccine recombinant Casey Maddieheather DO Work Phone: [facility] 11-13-2022 zoster vaccine recombinant Casey Maddieheather DO Work Phone: [facility] 04-05-2022 Influenza Vaccine, Quadrivalent, Adjuvanted Casey Furlong DO Work Phone: [facility] Work Phone: 03-28-2022 influenza virus vacc ine, unspecified formulation Casey Furlong DO Work Phone: [facility] 01-19-2022 Covid-19, Mrna, Lnp- s, Pf, 30 Mcg/0.3 Ml Dose, Tobi-sucrose Casey Furlong DO Work Phone: [facility] 05-10-2021 Influenza Vaccine, Quadrivalent, Adjuvanted Casey Furlong DO Work Phone: [facility] 05-09-2021 influenza, seasonal, injectable Casey Furlong DO Work Phone: [facility] 02-02-2021 tetanus toxoid, redu alexi diphtheria toxoid, and acellular pertussis vaccine, adsorbed Casey Maddielong DO Work Phone: [facility] 07-14-2020 pneumococcal polysaccharide vaccine, 23 valent Caseyjohann Perkinslong DO Work Phone: [facility] 04-15-2020 influenza virus vacc ine, unspecified formulation Casey Maddielong DO Work Phone: [facility] 06-12-2019 influenza, injectabl e, quadrivalent, preservative free Casey Furlong DO Work Phone: [facility] 03-26-2019 influenza, injectabl e, quadrivalent, preservative free Casey Furlong DO Work Phone: [facility] 01-27-2019 zoster vaccine recombinant Casey Furlong DO Work Phone: [facility] 03-28-2018 influenza, injectabl e, quadrivalent, contains preservative Casey Furlong DO Work Phone: [facility] 03-27-2018 influenza, injectabl e, quadrivalent, preservative free Casey Furlong DO Work Phone: [facility] 03-28-2017 Influenza, injectabl e, Madin Domitila Canine Kidney, preservative free, quadrivalent Casey Furlong DO Work Phone: [facility] 03-07-2016 influenza, seasonal, injectable Casey Furlong DO Work Phone: [facility] 06-03-2015 zoster vaccine, live Casey Furlong DO Work Phone: [facility] 05-31-2015 influenza, seasonal, injectable Casey Furlong DO Work Phone: [facility] 05-31-2015 pneumococcal polysaccharide vaccine, 23 valent Casey Furlong DO Work Phone: [facility] 04-10-2014 influenza, seasonal, injectable Casey Furlong DO Work Phone: [facility] 09-06-2009 tetanus toxoid, redu alexi diphtheria toxoid, and acellular pertussis vaccine, adsorbed Casey Furlong DO Work Phone: [facility] Payers Date Payer Category Payer Medicare [employer] MEDICARE ADVANTAGE PPO [id number] 2022-Present [phone] [address] [address] [place] [address] [id number] 2022 Medicare [id number] 2022 Medicare [id number] 1960 Self-pay 1955 Unknown [id number] 286 1955 Unknown [id number] 286 1954 Unknown [id number] 286 1954 Unknown [id number] 286 1954 Unknown [id number] 286 1954 Unknown [id number] 286 1954 Unknown [id number] [id number] 286 1955 Unknown [id number] 286 Unknown [id number] [id number] 93 Social History Date Type Detail Facility Start: 04-05-2022 Tobacco smoking status NHIS Ex-smoker [facility] Start: 06-25-1969 End: 06-25-1983 History of tobacco use Current smoker [facility] Start: 06-25-1969 End: 06-25-1983 History of tobacco use Cigarette Smoker [facility] Start: 04-03-2022 End: 04-05-2022 Cigarettes smoked current (pack per day) - Reported 1 [facility] Start: 04-05-2022 Tobacco use and exposure Smokeless tobacco non-user [facility] Start: 06-14-2023 Alcohol intake Current drinker of alcohol (finding) [facility] Start: 04-03-2022 End: 06-15-2023 [facility] [employer] [facility] Has the [employer], or [employer] threatened to shut off services in your home in past 12Mo No [facility] Do you belong to any clubs or organizations such as adventism groups, unions, fraternal or athletic groups, or school groups? Yes [facility] Are you now , , , , never or living with a partner? [facility] How often to you hav e a drink containing alcohol? Monthly or less [facility] How many standard dr inks containing alcohol do you have on a typical day? 1 or 2 [facility] How often do you hav e 6 or more drinks on 1 occasion? Never [facility] How hard is it for y ou to pay for the very basics like food, housing, medical care, and heating Not very hard [facility] Adolescent depressio n screening assessment 0 [facility] Do you feel stress - tense, restless, nervous, or anxious, or unable to sleep at night because your mind is troubled all the time - these days [OSQ] Only a little [facility] Start: 04-03-2022 Education 21 [facility] Start: 04-04-2022 Alcohol Comment Occasional [facility] Start: 1955 Sex Assigned At Male [facility] Start: 12-24-2018 Gender identity Identifies as male gender (finding) [facility] Start: 12-24-2018 Sexual orientation Heterosexual (finding) [facility] Medical Equipment Procedure Code Equipment Code Equipment Origin al Text Equipment Identifier Dates Hip Dep Pf Cerm/ Cerm Construct - [id number] Start: 03-26-2018 Delta Cer Head 1 08/08 36mm +5 Hd Fem 36mm +5mm 06/07 Tpr - Sna - [id number] Start: 03-26-2018 Scr Canc Hip Cnn Gription 20mm Pinn Can Bone Screw [id number] - Sna - [id number] Start: 03-26-2018 Progress note 02-05-2024 Note Date & Type Note Facility 02-05-2024 Note [place] [facility] Consult Note Reason for visit: Afib 02/05/24 Pt is doing well in SR. He would liek to proceed with ablation. HPI: Carrol Vega is a 68 y.o. year old with past medical history of Hypertension, asthma, prediabetes, A-fib and is taking Eliquis 5 mg twice daily, obesity, abnormal stress test which led to cardiac catheterization 12/18/2018 which showed normal coronary arteries, minimal luminal irregularities were noted. patient had echo 11/29/2022 which showed normal LVEF, normal LV size, LA and RA mildly dilated, no significant valvular abnormalities. He was scheduled for TAMARA/cardioversion which was canceled due to feeling that he converted to SR. He denies chest pain, shortness of breath, LE edema. Had testing in Feb 2023. Patient denies chest pain, SOB, and bleeding on Eliquis. Only feels palpitations once in a great while . ECG 01/03/2023 SR 11/29/22 A-fib RVR 11/09/2022 A-fib RVR PMH: Past Medical History: Diagnosis Date Arrhythmia Asthma Hyperlipidemia Hypertension Patient Active Problem List Diagnosis Abnormal stress test Actinic keratosis Arthritis of right hip Anal fissure Asthma Persistent atrial fibrillation (CMS/HCC) Benign prostatic hyperplasia Class 1 obesity due to excess calories with serious comorbidity and body mass index (BMI) of 32.0 to 32.9 in adult Presence of right artificial hip joint Polyp of ascending colon Pain in left knee Pain in joint involving pelvic region and thigh Osteoarthritis Normal coronary arteries Neoplasm of uncertain behavior of skin of forearm Interstitial lung disease (CMS/HCC) Impaired fasting glucose Hypertensive heart disease without congestive heart failure Hyperlipidemia History of colonic polyps GERD (gastroesophageal reflux disease) Essential hypertension Dyspnea on exertion Diverticulosis large intestine w/o perforation or abscess w/o bleeding DDD (degenerative disc disease), cervical PSH: Past Surgical History: Procedure Laterality Date REPLACEMENT TOTAL HIP LATERAL POSITION REPLACEMENT TOTAL KNEE ONCOLOGIC SH: Social Determinants of Health Tobacco Use: Medium Risk (01/03/2023) Patient History Smoking Tobacco Use: Former Smokeless Tobacco Use: Never Passive Exposure: Not on file Alcohol Use: Not on file Financial Resource Strain: Not on file Food Insecurity: Not on file Transportation Needs: Not on file Physical Activity: Not on file Stress: Not on file Social Connections: Not on file Intimate Partner Violence: Unknown (08/16/2023) [place] Safety & Environment Fear of Current or Ex-Partner: Not on file Emotionally Abused: Not on file Physically Abused: Not on file Sexually Abused: Not on file Physically or Sexually Abused: Not on file Depression: Not on file Housing Stability: Not on file Utilities: Not on file Allergies: Allergies Allergen Reactions Meperidine Hives, Shortness of breath and Swelling Morphine Palpitations Weight: 112kg Visit Vitals Ht 1.854 m (6' 1 ) Wt 112 kg (246 lb) BMI 32.46 kg/m??? Smoking Status Former BSA 2.4 m??? Meds: Current Outpatient Medications on File Prior to Visit Medication Sig Dispense Refill albuterol 90 mcg/actuation inhaler Inhale 2 puffs every 6 (six) hours if needed for wheezing. amiodarone (Pacerone) 200 mg tablet Take 1 tablet (200 mg) by mouth in the morning. 90 tablet 5 apixaban (Eliquis) 5 mg tablet Take 5 mg by mouth twice a day. atorvastatin (Lipitor) 80 mg tablet Take 80 mg by mouth in the morning. baclofen (Lioresal) 10 mg tablet Take 10 mg by mouth in the morning and at bedtime. bisoproloL-hydrochlorothiazide (Ziac) 10-6.25 mg tablet Take 1 tablet by mouth in the morning. fluticasone propion-salmeteroL (Advair Diskus) 250-50 mcg/dose diskus inhaler Inhale 1 puff in the morning and at bedtime. [id number]-sek-goimnit-ast 1,000-230-60 mg capsule Take 1 capsule by mouth in the morning. levocetirizine (Xyzal) 5 mg tablet Take 5 mg by mouth in the morning. lisinopril 10 mg tablet Take 10 mg by mouth in the morning. multivitamin (Theragran-M) 9 mg iron-400 mcg tablet Take 1 tablet by mouth in the morning. meclizine (Antivert) 25 mg tablet Take 25 mg by mouth if needed in the morning, at noon, and at bedtime for dizziness. tiotropium (Spiriva Respimat) 1.25 mcg/actuation inhaler Inhale 2 puffs in the morning. No current facility-administered medications on file prior to visit. ROS: Review of Systems Cardiovascular: Positive for irregular heartbeat. Respiratory: Positive for shortness of breath. Neurological: Positive for dizziness. Physical Exam: Constitutional General Appearance: well-nourished, well-developed, appears stated age Level of Distress: comfortable Psychiatric Mental Status: alert, normal affect Orientation: oriented to time, place, and person Insight: good judgement Eyes Lids and Conjunctivae: non-injected, no xanthelasma ENM (more content not included)... [facility] Progress note 05-29-2023 Note Date & Type Note Facility 05-29-2023 Note [facility] Consult Note Reason for visit: Afib HPI: Carrol Vega is a 67 y.o. year old with past medical history of Hypertension, asthma, prediabetes, A-fib and is taking Eliquis 5 mg twice daily, obesity, abnormal stress test which led to cardiac catheterization 12/18/2018 which showed normal coronary arteries, minimal luminal irregularities were noted. patient had echo 11/29/2022 which showed normal LVEF, normal LV size, LA and RA mildly dilated, no significant valvular abnormalities. He was scheduled for TAMARA/cardioversion which was canceled due to feeling that he converted to SR. He denies chest pain, shortness of breath, LE edema. Had testing in Feb 2023. Patient denies chest pain, SOB, and bleeding on Eliquis. Only feels palpitations once in a great while . ECG 01/03/2023 SR 11/29/22 A-fib RVR 11/09/2022 A-fib RVR PMH: Past Medical History: Diagnosis Date Arrhythmia Asthma Hyperlipidemia Hypertension Patient Active Problem List Diagnosis Abnormal stress test Actinic keratosis Arthritis of right hip Anal fissure Asthma Persistent atrial fibrillation (CMS/HCC) Benign prostatic hyperplasia Class 1 obesity due to excess calories with serious comorbidity and body mass index (BMI) of 32.0 to 32.9 in adult Presence of right artificial hip joint Polyp of ascending colon Pain in left knee Pain in joint involving pelvic region and thigh Osteoarthritis Normal coronary arteries Neoplasm of uncertain behavior of skin of forearm Interstitial lung disease (CMS/HCC) Impaired fasting glucose Hypertensive heart disease without congestive heart failure Hyperlipidemia History of colonic polyps GERD (gastroesophageal reflux disease) Essential hypertension Dyspnea on exertion Diverticulosis large intestine w/o perforation or abscess w/o bleeding DDD (degenerative disc disease), cervical PSH: Past Surgical History: Procedure Laterality Date REPLACEMENT TOTAL HIP LATERAL POSITION REPLACEMENT TOTAL KNEE ONCOLOGIC SH: Social Determinants of Health Tobacco Use: Medium Risk (01/03/2023) Patient History Smoking Tobacco Use: Former Smokeless Tobacco Use: Never Passive Exposure: Not on file Alcohol Use: Not on file Financial Resource Strain: Not on file Food Insecurity: Not on file Transportation Needs: Not on file Physical Activity: Not on file Stress: Not on file Social Connections: Not on file Intimate Partner Violence: Not on file Depression: Not on file Housing Stability: Not on file Allergies: Allergies Allergen Reactions Meperidine Hives, Shortness of breath and Swelling Morphine Palpitations Weight: 114kg Visit Vitals BP 135/76 (BP Location: Left arm, Patient Position: Sitting) Pulse 64 Ht 1.854 m (6' 1 ) Wt 114 kg (251 lb) SpO2 96% BMI 33.12 kg/m??? Smoking Status Former BSA 2.42 m??? Meds: Current Outpatient Medications on File Prior to Visit Medication Sig Dispense Refill albuterol 90 mcg/actuation inhaler Inhale 2 puffs every 6 (six) hours if needed for wheezing. amiodarone (Pacerone) 200 mg tablet Take 1 tablet (200 mg) by mouth in the morning. 90 tablet 5 apixaban (Eliquis) 5 mg tablet Take 5 mg by mouth twice a day. atorvastatin (Lipitor) 80 mg tablet Take 80 mg by mouth in the morning. baclofen (Lioresal) 10 mg tablet Take 10 mg by mouth in the morning and at bedtime. bisoproloL-hydrochlorothiazide (Ziac) 10-6.25 mg tablet Take 1 tablet by mouth in the morning. fluticasone propion-salmeteroL (Advair Diskus) 250-50 mcg/dose diskus inhaler Inhale 1 puff in the morning and at bedtime. [id number]-ajm-pwnsber-ast 1,000-230-60 mg capsule Take 1 capsule by mouth in the morning. levocetirizine (Xyzal) 5 mg tablet Take 5 mg by mouth in the morning. lisinopril 10 mg tablet Take 10 mg by mouth in the morning. multivitamin (Theragran-M) 9 mg iron-400 mcg tablet Take 1 tablet by mouth in the morning. tiotropium (Spiriva Respimat) 1.25 mcg/actuation inhaler Inhale 2 puffs in the morning. No current facility-administered medications on file prior to visit. ROS: Review of Systems Constitutional: Positive for malaise/fatigue. HENT: Positive for tinnitus. Respiratory: Positive for snoring. Musculoskeletal: Positive for joint pain. Neurological: Positive for light-headedness. All other systems reviewed and are negative. Physical Exam: Constitutional General Appearance: well-nourished, well-developed, appears stated age Level of Distress: comfortable Psychiatric Mental Status: alert, normal affect Orientation: oriented to time, place, and person Insight: good judgement Eyes Lids and Conjunctivae: non-injected, no xanthelasma ENMT Ears: no lesions on external ear Nose: no lesions on external nose Oropharynx: no cyanosis, no pallor Neck Neck: supple, trachea midline Carotid Arteries: bilateral normal upstroke, no bruits Jugular Veins: normal jugular venous pr (more content not included)... [facility] Evaluation note Note Date & Type Note Facility Evaluation note Diagnosis Mixed hyperlipidemia- Primary documented in this encounter [facility] Instructions Note Date & Type Note Facility Instructions Not on filedocumented in this en counter [facility] Instructions Note Date & Type Note Facility Instructions Not on filedocumented in this en counter [facility] Summary Purpose Family History No Family History Records FoundNo Family History Records FoundNo Family History Records FoundNo Family History Records FoundNo Family History Records FoundNo Family History Records Found Advance Directives No Advanced Directives Records FoundDocuments on File Type Date Recorded 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 Living Will 04/05/2018 2:58 PM Latest Code Status on File Code Status Date Activated Date Inactivated Comments Full Code 03/26/2018 12:34 PM 03/29/2018 1:21 PM Additional Source Comments INFORMATION SOURCE (unrecogn ized section and content) DATE CREATED AUTHOR 08/19/2020 [facility] DATE CREATED AUTHOR AUTHOR'S ORGANIZ ATION 08/25/2021 [facility] DATE CREATED AUTHOR AUTHOR'S ORGANIZ ATION 10/05/2023 [facility] DATE CREATED AUTHOR AUTHOR'S ORGANIZ ATION 11/09/2023 [facility] DATE CREATED AUTHOR AUTHOR'S ORGANIZ ATION 02/06/2024 [facility] DATE CREATED AUTHOR AUTHOR'S ORGANIZ ATION 03/03/2024 [facility] (unrecognized sect ion and content) No Status Records FoundNo Status Records FoundNo Status Records FoundNo Status Records FoundNo Status Records Found Reason for Visit (unrecogniz ed section and content) Reason Comments Med Refill Care Teams (unrecognized sec tion and content) Engineering Specialist Technician Relationship Specialty Start Date End Date Casey Fitzgerald DO [address] [facility], [place] [address] PCP - General Family Medicine 02/26/18 Engineering Specialist Technician Relationship Specialty Start Date End Date Casey Fitzgerald DO [address] [facility] [place] [address] PCP - General Family Medicine 02/26/18 FOR RECORDS PERTAINING TO PATIENTS WHO ARE OR HAVE BEEN ENROLLED IN A CHEMICAL DEPENDENCY/SUBSTANCEABUSE PROGRAM, SOME INFORMATION MAY BE OMITTED. This clinical summary was aggregated from multiple sources. Caution should be exercised in using it in the provision of clinical care. This summary normalizes information from multiple sources, and as a consequence, information in this document may materially change the coding, format and clinical context of patient data. In addition, data may be omitted in some cases. CLINICAL DECISIONS SHOULD BE BASED ON THE PRIMARY CLINICAL RECORDS. [employer] [facility]. provides no warranty or guarantee of the accuracy or completeness of information in this document.
[2024-03-04 10:23] LABS: Basophils Absolute Auto 0.1 10^3/uL (0.0-0.1); Basophils Percent Auto 1.6 % (0.2-2.0); Eosinophils Absolute Auto 0.2 10^3/uL (0.0-0.7); Eosinophils Percent Auto 2.8 % (0.9-7.0); Hematocrit 44.1 % (42.0-54.0); Hemoglobin 15.1 g/dL (14.0-18.0); Immature Granulocytes Abs Auto 0.02 10^3/uL (0.00-0.03); Immature Granulocytes Pct Auto 0.4 % (0.0-0.5); Lymphocytes Absolute Auto 1.7 10^3/uL (1.2-3.8); Lymphocytes Percent Auto 29.2 % (20.5-60.0); Mean Corpuscular HGB Conc 34.2 g/dL (29.9-35.2); Mean Corpuscular Volume 84.6 fL (80.0-94.0); Mean Platelet Volume 9.6 fL (9.5-13.5); Monocytes Absolute Auto 0.5 10^3/uL (0.3-0.8); Neutrophils Absolute Auto 3.2 10^3/uL (1.4-6.5); Platelet Count 173 10^3/uL (150-450); Red Blood Count 5.21 10^6/uL (4.70-6.10); Red Cell Distribution Width 14.1 % (11.0-15.0); White Blood Count 5.7 10^3/uL (4.0-11.0)
[2024-03-04 10:25] LABS: Alanine Aminotransferase 42 U/L (16-63); Albumin Globulin Ratio 1.2; Alkaline Phosphatase 67 U/L (46-116); Anion Gap 10.7; Aspartate Amino Transferase 24 U/L (15-37); BUN Creatinine Ratio 11.1; Bilirubin Direct 0.2 mg/dL (0.0-0.2); Calcium 9.5 mg/dL (8.5-10.1); Carbon Dioxide 29.4 mmol/L (21.0-32.0); Chloride 105 mmol/L (98-107); Estimated GFR (African America >60 (>=60); Estimated GFR (Non-African Ame 52 (>=60); Globulin 3.4 g/dL; Glucose 107 mg/dL (74-106); Potassium 4.1 mmol/L (3.5-5.1); Sodium 141 mmol/L (136-145); Thyroid Stimulating Hormone 6.426 uIU/mL (0.358-3.740); Total Protein 7.4 g/dL (6.4-8.2)
== END 2024-03-04 09:46 | disposition home or self-care (01) ==
LOC: LAB 09:50
PROVIDERS: PCP Family Medicine; Visit Provider Internal Medicine Cardiovascular Disease
DX: I48.19 Other persistent atrial fibrillation (principal); Z79.899 Other long term (current) drug therapy
CPT/HCPCS: 36415; 80048; 80076; 84443; 85025

== ENCOUNTER 2024-03-31 11:21 | Outpatient (OUT) | payer MEDICARE, SELFPAY ==
--- OUTSIDE RECORDS SUMMARY | 2024-03-31 11:30 | XMS_ITS | CCD ---
Author Organization [facility] Care Team Providers Care Carbonizer Tester Name Role Phone REQUEST, NONE LISTED Attending Unavailable REQUEST, NONE LISTED Consulting Unavailable REQUEST, NONE LISTED Admitting Unavailable Furlong Casey REED Primary Care Provider ANGELNG, CASEY Pringle Referring Unavailable FURLONG, CASEY G Primary Care Unavailable FURLONG, CASEY G Referring Unavailable FURLONG, CASEY G Primary Care Unavailable YUHADESMOND Stuart Admitting Unavailable YUHADESMOND Stuart Attending Unavailable YUHASDESMOND Referring Unavailable FURLONG, CASEY Pringle Primary Care Unavailable YUHASDESMOND Attending Unavailable YUHASDESMOND [...] Unavailable FURLONG, CASEY G Primary Care Unavailable ANURAG CRUZ Attending Unavailable DALEANURAG Referring Unavailable DALEANURAG Referring Unavailable DALEANURAG Admitting Unavailable HAZELSACHA Attending Unavailable ZOEYSYDNEY Referring Unavailable MART, TONY Referring Unavailable DALE, ANURAG Attending Unavailable Allergies Allergy Classification Reported Allergen(s) Allergy Type Date of Onset Reaction(s) Facility (1 source) Meperidine Drug Allergy 1 [facility] Rep[facility] (5 sources) Morphine; Translations: [MORPHINE] Drug Allergy 8 [facility] Rep[facility] (8 sources) Meperidine; Translations: [MEPERIDINE] Drug Allergy 8 Hives, Shortness Of Breath, Swelling [facility] (4 sources) Morphine Drug Allergy 8 [facility]achy[facility], [facility]ations [facility] (7 sources) Morphine; Translations: [MORPHINE SULFATE] Drug Allergy 2 [facility]pitations [email or web address] Work Phone: Medications Current Medications Medication Drug Class(es) Dates Sig (Normalized) Sig (Original) acetaminophen 325 mg oral tablet (4 sources) take 2 tablets by mouth every six hours as needed for pain acetaminophen (TYLENOL) 325 mg tablet Take 2 tablets (650 mg total) by mouth every 6 (six) hours as needed for pain. 0 Active [id number] 200 actuat albuterol 0.09 mg/actuat metered dose [...] mg tablet Indications: Atrial fibrillation, unspecified type ([facility]) TAKE 1 TABLET BY MOUTH IN THE [...] 4 refills 180 each 3 10/09/2022 Active obafh-ik-5-dpu-ney-wnznd ho-ast 1,000-230-60 mg capsule (4 sources) lrwkx-uz-9-dha-e pa -phospho-ast 1,000-230-60 mg capsule Take by [...] MOUTH DAILY 100 tablet 2 07/24/2023 Active fjzckgdj-nwvh-YA-calcium &mins (THERAGRAN-M) 9 mg iron-400 mcg tablet (4 sources) nisuhqte-gpuz-VT -c alcium &mins (THERAGRAN-M) 9 mg iron-400 mcg tablet Take 1 tablet by mouth in the morning. 0 Active OPTICAyudarumBER [facility] spacer (4 sources) Start: 9 OPTICHAMBER [facility] spacer USE WITH INHALER DIRECTED 1 each 0 06/02/2019 Active Problems Active Problems Problem Classification Problem Date Documented Date Episodic/Chronic Asthma (4 sources) Asthma; Translations: [Unspecified asthma, uncomplicated] Onset: 03-30-2022 03-30-2022 Chronic Cardiac dysrhythmias (10 sources) Atrial fibrillation; Translations: [Unspecified atrial fibrillation] [...] Test Name Value Interpretation Reference Range Facility 30on 03-28-2024 30 The patient is Moderately Stable - Low risk of patient condition declining or worsening The patient's goals for the shift include comfort The clinical goals for the shift include VSS, safety Normal [facility] 30 The patient is Moderately Stable - Low risk of patient condition declining or worsening The patient's goals for the shift include comfort The clinical goals for the shift include VSS Normal [facility] CBC WITH AUTO DIFFERENTIALon 03-28-2024 Basophils (Bld) [#/Vol] 0.04 10*3/uL Normal 0.00-0.20 [facility] Comment on above: Performed By: #### L [id number] ####[facility] (AKER)[address] [place] [address] Basophils/100 WBC (Bld) 0.4 % Normal 0.0-1.0 [facility] Comment on above: Performed By: #### L [id number] ####[facility] (BEAKER)[address] [place] [address] Eosinophils (Bld) [#/Vol] 0.01 10*3/uL Normal 0.00-0.50 [facility] Comment on above: Performed By: #### L [id number] ####[facility] ([facility])[address] [place] [address] Eosinophils/100 WBC (Bld) 0.1 % Normal 0.0-6.0 [facility] Comment on above: Performed By: #### L [id number] ####[facility] (BEAKER)[address] [place] [address] Erythrocyte distribution width (RBC) [Ratio] 14.4 % Normal 11.5-15.0 [facility] Comment on above: Performed By: #### L [id number] ####[facility] [place] [address] ERYTHROCYTE MEAN CORPUSCULAR HEMOGLOBIN CONCENTRATION (G/DL) BY AUTOMATED 34.3 g/dL Normal 32.0-35.0 [facility] Comment on above: Performed By: #### L [id number] ####[facility] ([facility])[address] [place] [address] Hematocrit (Bld) [Volume fraction] 39.4 % Normal 39.0-55.0 [facility] Comment on above: Performed By: #### L [id number] ####[facility] (BEAKER)[address] [place] [address] Hemoglobin (Bld) [Mass/Vol] 13.5 g/dL Normal 13.0-17.0 [facility] Comment on above: Performed By: #### L [id number] ####[facility] (BEAKER)[address] [place] [address] Immature granulocytes (Bld) [#/Vol] 0.04 10*3/uL Normal 0.00-0.20 [facility] Comment on above: Performed By: #### L [id number] ####[facility] (BEAKER)[address] [place] [address] Immature granulocytes/100 WBC (Bld) 0.4 % Normal 0.0-1.0 [facility] Comment on above: Performed By: #### L [id number] ####[facility] (BEAKER)[address] [place] [address] Lymphocytes (Bld) [#/Vol] 0.96 10*3/uL Low 1.20-4.00 [facility] Comment on above: Performed By: #### L [id number] ####[facility] [place] [address] Lymphocytes/100 WBC (Bld) 10.7 % Low 20.0-45.0 [facility] Comment on above: Performed By: #### L [id number] ####[facility] ([facility])[address] [place] [address] MCH (RBC) [Entitic mass] 29.7 pg Normal 27.0-33.0 [facility] Comment on above: Performed By: #### L [id number] ####[facility] ([facility])[address] [place] [address] MCV (RBC) [Entitic vol] 86.6 fL Normal 82.0-98.0 [facility] Comment on above: Performed By: #### L [id number] ####[facility] ([facility])[address] [place] [address] Monocytes (Bld) [#/Vol] 1.00 10*3/uL Normal 0.10-1.00 [facility] Comment on above: Performed By: #### L [id number] ####[facility] ([facility])[address] [place] [address] Monocytes/100 WBC (Bld) 11.1 % Normal 5.0-12.0 [facility] Comment on above: Performed By: #### L [id number] ####[facility] (BEAKER)[address] [place] [address] Neutrophils (Bld) [#/Vol] 6.94 10*3/uL Normal 1.60-7.60 [facility] Comment on above: Performed By: #### L [id number] ####[facility] (BEAKER)[address] [place] [address] Neutrophils/100 WBC (Bld) 77.3 % High 40.0-72.0 [facility] Comment on above: Performed By: #### L [id number] ####[facility] (BEAKER)[address] [place] [address] NRBC (PER 100 WBCS) BY AUTOMATED COUNT 0.0 % Normal 0 [facility] Comment on above: Performed By: #### L [id number] ####[facility] [place] [address] PLATELETS (10*3/UL) IN BLOOD AUTOMATED COUNT 170 10*3/uL Normal 150-400 [facility] Comment on above: Performed By: #### L [id number] ####[facility] ([facility])[address] [place] [address] RBC (Bld) [#/Vol] 4.55 10*6/uL Normal 4.20-5.70 [facility] Comment on above: Performed By: #### L [id number] ####[facility] ([facility])[address] [place] [address] WBC (Bld) [#/Vol] 8.99 10*3/uL Normal 4.00-10.60 [facility] Comment on above: Performed By: #### L [id number] ####[facility] ([facility])[address] [place] [address] CT [facility] P[facility]BDOMEN PELVIS WO IV CONTRAST STUDY: UNENHANCED CT OF THE ABDOMEN AND PELVIS CLINICAL INFORMATION: Age/Gender: 68 years / Male History: .hypotension; Atrial fibrillation pre or post ablation; hypotension.. PROCEDURE: CT examination of the abdomen and pelvis was performed without intravenous contrast. Enteric contrast was not administered. COMPARISON: None. FINDINGS: The lack of intravenous contrast limits evaluation of the viscera. LOWER THORAX: Bibasilar atelectasis. Small bulla/parenchymal cyst along the right inferior lung field. Mild coronary calcifications LIVER: Normal in size and configuration. No suspicious mass within the limits of an unenhanced exam. Fatty liver. BILE DUCTS: No intrahepatic or extrahepatic bile duct dilation. GALLBLADDER: Layering sludge versus stones. Normal wall thickness. PANCREAS: Unremarkable. No main pancreatic duct dilation. SPLEEN: Benign calcifications likely sequela of prior granulomatous disease. ADRENAL GLANDS: Unremarkable. KIDNEYS/URETERS: No hydroureteronephrosi s. No renal calculi. Bilateral renal cysts noting a subcentimeter proteinaceous/hemorr hagic cyst on the left (2:60). BLADDER: Incompletely distended. REPRODUCTIVE ORGANS: Suboptimal evaluation of pelvic structures secondary to beam hardening artifact from right hip arthroplasty. Enlarged prostate. Symmetric seminal vesicles. BOWEL: No disproportionate dilation of the small or large bowel. The appendix is surgically absent. Small hiatal hernia. PERITONEUM/RETROPERI TONEUM: No fluid collection, ascites, or pneumoperitoneum. LYMPH NODES: No abdominal or pelvic lymphadenopathy. VESSELS: No abdominal aortic aneurysm [AAA00]. Scattered aortic atherosclerosis. ABDOMINAL/PELVIC WALL: Mild fat stranding and subcutaneous emphysema along the right groin, likely iatrogenic and secondary to reported same day catheter ablation. No drainable abscess. No hematoma. Moderate-sized bilateral fat-containing inguinal hernias. Small fat-containing umbilical hernia. BONES: No suspicious osseous lesions. Right total hip arthroplasty. Scattered osseous degenerative changes. Few scattered benign osseous bone island. IMPRESSION: 1.No explanation for patient's reported symptoms. 2.Post procedural changes of the right groin without evidence of drainable abscess or hematoma. Approved by:Suleman Agee03/28/2024 2:51 PM. I, Maricruz Bryant,have reviewed the image(s) and agree with the findings in this report. Electronically signed: Maricruz Bryant. Not Vldtd Invalid Interpretation Code [facility] HEMOGLOBIN AND HEMATOCRIT, B LOODon 03-28-2024 Hematocrit (Bld) [Volume fraction] 40.8 % Normal 39.0-55.0 [facility] Comment on above: Performed By: #### L [id number] ####[facility] (BEAKER)[address] [place] [address] Hemoglobin (Bld) [Mass/Vol] 13.9 g/dL Normal 13.0-17.0 [facility] Comment on above: Performed By: #### L [id number] ####[facility] (BEAKER)[address] [place] [address] 30on 03-27-2024 30 Problem: Pain - Adult Goal: Verbalizes/displays adequate comfort level or baseline comfort level Outcome: Progressing Problem: Safety - Adult Goal: Free from fall injury Outcome: Progressing Problem: Discharge Planning Goal: Discharge to home or other facility with appropriate resources Outcome: Progressing Problem: Chronic Conditions and Co-morbidities Goal: Patient's chronic conditions and co-morbidity symptoms are monitored and maintained or improved Outcome: Progressing The patient is Moderately Stable - Low risk of patient condition declining or worsening The patient's goals for the shift include The clinical goals for the shift include comfort Over the shift, the patient did not make progress toward the following goals. Normal [facility] 30 The patient is Moderately Stable - Low risk of patient condition declining or worsening The patient's goals for the shift include The clinical goals for the shift include comfort Over the shift, the patient did not make progress toward the following goals. Normal [facility] ANESon 03-27-2024 ANES Attestation signed by Dwight Cortez MD at 03/27/2024 7:35 AM I reviewed and agree with the history & physical examination by Dr. Del Cid. I examined and interviewed the patient. Patient: Carrol Vega Procedure Information Date/Time: 03/27/24 0800 Procedure: Ablation a-fib paroxysmal - CALL [facility] WHEN APPT MADE Location: [facility] EP / [facility] (Cath) Providers: Anurag Cruz MD Relevant Problems Cardio (+) Essential hypertension (+) Paroxysmal atrial fibrillation (CMS/HCC) (+) Persistent atrial fibrillation (CMS/HCC) Endo BG 109 (+) Acquired hypothyroidism GI (+) GERD (gastroesophageal reflux disease) (Intermittent, none today) Pulmonary (+) Asthma (Daily maintenance inhaler, albuterol prn) Circulatory (+) Hypertensive heart disease without congestive heart failure Musculoskeletal (+) DDD (degenerative disc disease), cervical Endocrine/Metabolic (+) Class 1 obesity due to excess calories with serious comorbidity and body mass index (BMI) of 32.0 to 32.9 in adult Other (+) Arthritis of right hip EKG 03/27/24: Sinus bradycardia Echo 11/29/22: Clinical information reviewed: Tobacco Allergies Meds Problems Med Hx Surg Hx Fam Hx Soc Hx Physical Exam Airway Mallampati: II TM distance: >3 FB Neck ROM: full Cardiovascular Rhythm: regular Rate: normal Dental Comments: Edentulous Pulmonary Breath sounds clear to auscultation Abdominal - normal exam Anesthesia Plan ASA 3 general The patient is not a current smoker. Education provided regarding risk of obstructive sleep apnea. intravenous induction Postoperative administration of opioids is intended. Trial extubation is planned. Anesthetic plan and risks discussed with patient. Use of blood products discussed with patient who consented to blood products. Plan discussed with attending. Additional Equipment Requests Normal [facility] HPon 03-27-2024 [facility] Electrophysiology Consult Note Reason for visit: Afib 03/27/24 Pt is doing well in SR. He [...] RVR PMH: Past Medical History: Diagnosis Date Adverse effect of anesthesia CONFUSION Arrhythmia Arthritis Asthma BPH (benign prostatic hyperplasia) CHF (congestive heart failure) (CMS/HCC) Colon polyp DDD (degenerative disc disease), cervical Disease of thyroid gland Diverticulosis GERD (gastroesophageal reflux disease) Hyperlipidemia Hypertension Interstitial lung disease (CMS/HCC) OA (osteoarthritis) Paroxysmal atrial fibrillation (CMS/HCC) Patient Active Problem List Diagnosis Abnormal stress [...] w/o bleeding DDD (degenerative disc disease), cervical Paroxysmal atrial fibrillation (CMS/HCC) Acquired hypothyroidism PSH: Past Surgical History: Procedure Laterality Date ANAL SPHINCTEROTOMY CARDIAC CATHETERIZATION 2019 CATARACT EXTRACTION Bilateral COLONOSCOPY COLONOSCOPY REPLACEMENT TOTAL HIP LATERAL POSITION Right TOTAL KNEE ARTHROPLASTY Right SH: Social Determinants of Health Tobacco Use: Medium Risk (03/27/2024) Patient History Smoking Tobacco Use: Former Smokeless Tobacco Use: Never Passive Exposure: Not on file Alcohol Use: Not on file Financial Resource Strain: Not on file Food Insecurity: Not on file Transportation Needs: Not on file Physical Activity: Not on file Stress: Not on file Social Connections: Not on file Intimate Partner Violence: Unknown (08/16/2023) [place] Safety & Environment Fear of Current or Ex-Partner: Not on file Emotionally Abused: Not on file Physically Abused: Not on file Sexually Abused: Not on file Physically or Sexually Abused: Not on file Depression: Not on file Housing Stability: Not on file Utilities: Not on file Allergies: Allergies Allergen Reactions Meperidine Hives, Shortness of breath and Swelling Morphine Palpitations Weight: 112kg Visit Vitals BP 129/75 Pulse 52 Temp 36.1 ???C (97 ???F) (Temporal) Resp 16 Ht 1.854 m (6' 1 ) Wt 113 kg (249 lb 12.5 oz) SpO2 99% BMI 32.95 kg/m??? Smoking Status Former BSA 2.41 m??? Meds: No current facility-administere d medications on file prior to encounter. Current Outpatient Medications on File Prior to Encounter Medication Sig Dispense Refill albuterol 90 mcg/actuation inhaler Inhale 2 puffs every 6 (six) hours if needed for wheezing. amiodarone (Pacerone) 200 mg tablet Take 1 tablet (200 mg) by mouth once daily as directed. (Patient taking differently: Take 200 mg by mouth in the morning.) 90 tablet 2 atorvastatin (Lipitor) 80 mg tablet Take 80 mg by mouth in the morning. apixaban (Eliquis) 5 mg tablet Take 5 mg by mouth twice a day. bisoproloL-hydrochlo rothiazide (Ziac) 10-6.25 mg tablet Take 1 tablet by mouth in the morning. docusate sodium (Colace) 100 mg capsule Take 2 capsules by mouth two times daily. esomeprazole (NexIUM) [address] capsule Take 40 mg by mouth before breakfast. Do not open capsule. fluticasone propion-salmeteroL (Advair Diskus) 250-50 mcg/dose diskus inhaler Inhale 1 puff in the morning and at bedtime. dkdaf-pg-0-dha-epa-p hospho-ast 1,000-230-60 mg capsule Take 1 capsule by mouth in the morning. levocetirizine (Xyzal) 5 mg tablet Take 5 mg by mouth in the evening. lisinopril 10 mg tablet Take 10 (more content not included)... Normal [facility] POCT GLUCOSE METER UNSOLICIT ED RESULTSon 03-27-2024 Glucose [Mass/Vol] 109 mg/dL High 70-105 [facility] Comment on above: Order Comment: Waive d Testing in the ED is performed under the ED CLIA certificate #[id number]. Result Comment: acas til5 Performed By: #### L [id number] #### [facility] (BEAKER) [address] [place] [address] PROTIME-INRon 03-27-2024 INR IN PPP BY COAGULATION ASSAY 1.11 High 0.90-1.10 [facility] Comment on above: Result Comment: ACCC P RECOMMENDED INR FOR WARFARIN THERAPY CONDITION INR PROPHYLAXIS OF VENOUS THROMBOSIS 2-3 (HIGH-RISK SURGERY) TREATMENT OF VENOUS THROMBOSIS 2-3 TREATMENT OF PULMONARY EMBOLISM 2-3 PREVENTION OF SYSTEMIC EMBOLISM: 2-3 ACUTE MYOCARDIAL INFARCTION TISSUE HEART VALVES VALVULAR HEART DISEASE ATRIAL FIBRILLATION RECURRENT SYSTEMIC EMBOLISM MECHANICAL HEART VALVE 2.5-3.5 FROM: ORAL ANTICOAGULANTS. MECHANISM OF ACTION, CLINICAL EFFECTIVENESS, AND OPTIMAL THERAPEUTIC RANGE. CHEST 1995;108:231S-246S. Performed By: #### L [id number] #### [facility] ([facility]) [address] [place] [address] PROTHROMBIN TIME (PT) IN PPP BY COAGULATION ASSAY 14.3 Seconds Normal 12.3-14.8 [facility] Comment on above: Performed By: #### L [id number] #### [facility] ([facility]) [address] [place] [address] Abstracton 02-28-2024 Abstract [id number] Carrol Vega 1955 [facility] Department Center 02/28/2024 ANURAG [facility] [place] Family History Problem Relation Age of Onset Heart attack Mother Heart attack Brother Family Status - Relation Status Age at Mother Brother Normal [facility] Orders Onlyon 02-07-2024 Orders Only [id number] Carrol Vega 1955 [facility] Provider Department Center 02/07/2024 LINUS RANDALL LALY Us Family History Problem Relation Age of Onset Heart attack Mother Heart attack Brother Family Status - Relation Status Age at Mother Brother Normal [facility] Prep for Procedureon 024 Prep for Procedure [id number] Carrol Vega 1955 M Date Provider Department Center 02/07/2024 Ariadne-SOFIA CISNEROS [facility] Family History Problem Relation Age of Onset Heart attack Mother Heart attack Brother Family Status - Relation Status Age at Mother Brother Normal [facility] Office Visiton 02-05-2024 Follow-up visit [id number] Carrol Vega 1955 M Date Provider Department Center 02/05/2024 241-ANURAG CRUZ L[facility] Family History Problem Relation Age of Onset Heart attack Mother Heart attack Brother Family Status - Relation Status Age at Mother Brother Level of Service:24179 OK OFFICE/OUTPATIENT ESTABLISHED HIGH MDM 40 MIN Normal [facility] Orders Onlyon 02-05-2024 Orders Only [id number] Carrol Vega 1955 M Date Provider Department Center 02/05/2024 [facility]US [facility] Family History Problem Relation Age of Onset Heart attack Mother Heart attack Brother Family Status - Relation Status Age at Mother Brother Normal [facility] Orders Onlyon 01-31-2024 Orders Only [id number] Carrol Vega 1955 Date Provider Department Center 01/31/2024 LINUS RANDALL LALY Us Family History Problem Relation Age of Onset Heart attack Mother Heart attack Brother Family Status - Relation Status Age at Mother Brother Normal [facility] Surgical Pathologyon 024 Surgical Pathology Normal [facility] Comment on above: Result Comment: [facility] [address] [place] [address] Surgical Pathology Consultation Patient Name:CARROL VEGA:1955 (Age: 68)Gender:MTaken:4Reported:11/07/2023hysician(s):Desmond Cuevas MD ([phone])Copy To: Rec. #:[id number]: #[id number] Final Pathologic Diagnosis 1. Ascending colon polyps x2: Tubular adenomas. 2. Colon polyp at 110 cm: Tubular adenoma. 3. Colon polyp: Tubular adenoma. 4. Colon polyp at 80cm: Tubular adenoma fragments. Report Electronically Signed Out st/11/07/2023Vianey Seals MD Interpretation performed at [facility], [address] [place], [address], License number: [id number]. Clinical History History of colon polyps. 1. Snared polyps x2. 2. Snared a polyp at 110cm. 3. Snared a polyp. 4. Snared a polyp at 80cm. Gross Description 1. Received in formalin labeled [facility], ascending colon polyp are light blas soft tissue fragments, 0.8 x 0.3 x 0.2 cm in aggregate. The specimen is filtered and entirely submitted in a single cassette. (1, ns, [id number],m3) DM. 2. .Received in formalin labeled [facility], polyp at 110 cm is a light blas soft tissue bit, 0.4 cm. The specimen is filtered and entirely submitted in a single cassette. (1, ns, [id number],m3) DM. 3. Received in formalin labeled [facility], polyp at 85 cm is a light blas soft tissue bit, 0.6 cm. The specimen is filtered and entirely submitted in a single cassette. (1, ns, [id number],m3) DM. 4. Received in formalin labeled [facility], polyp at 80 cm are two light blas soft tissue bits, 0.2 and 0.3 cm. The specimen is filtered and entirely submitted in a single cassette. (1, ns, [id number],m3) DM. dm/11/03/2023GP Specimen(s) Received 1: Ascending colon polyps x2 2: Colon polyp at 110 cm 3: Colon polyp 4: Colon polyp at 80cm Fee Codes(s): 1; 18432 2; 10371 3; 58802 4; 24861 BASIC METABOLIC PANLon 10-02 Anion gap [Moles/Vol] 8 mmol/L Normal 5-15 [facility] Comment on above: Performed By: #### T HYR, BMP #### [facility] ([id number]) [address], [address] [place] [address] Calcium [Mass/Vol] 9.4 mg/dL Normal 8.5-10.5 [facility] Comment on above: Performed By: #### MIKE SON #### [facility] ([id number]) [address], [address] [place] [address] Chloride [Moles/Vol] 109 mmol/L Normal 98-109 [facility] Comment on above: Performed By: #### MIKE SON #### [facility] ([id number]) [address], [address] [place] [address] CO2 [Moles/Vol] 26 mmol/L Normal 22-32 [facility] Comment on above: Performed By: #### MIKE SON #### [facility] ([id number]) [address], [address] [place] [address] Creatinine [Mass/Vol] 1.48 mg/dL High 0.60-1.30 [facility] Comment on above: Result Comment: METH OD TRACEABLE TO IDMS STANDARD Performed By: #### MIKE SON #### [facility] ([id number]) [address], [address] [place] [address] GFR/1.73 sq M.predicted among non-blacks MDRD (S/P/Bld) [Vol rate/Area] 51 mL/min/{1.73_m2} Low >59 [facility] Comment on above: Result Comment: Reported eGFR is based on the CKD-EPI 2020 equation that does not use a race coefficient. Performed By: #### Jessica LUGO BMP #### [facility] ([id number]) [address], [address] [place] [address] Glucose [Mass/Vol] 110 mg/dL High 65-99 [facility] Comment on above: Performed By: #### Jessica LUGO BMP #### [facility] ([id number]) [address], [address] [place] [address] Potassium [Moles/Vol] 3.8 mmol/L Normal 3.5-5.0 [facility] Comment on above: Performed By: #### T HYR, BMP #### [facility] ([id number]) [address], [address] [place] [address] Sodium [Moles/Vol] 143 mmol/L Normal 134-146 [facility] Comment on above: Performed By: #### T DARENR, BMP #### [facility] ([id number]) [address] [address] Urea nitrogen [Mass/Vol] 20 mg/dL Normal 5-27 [facility] Comment on above: Performed By: #### T BRITTNEY, BMP #### [facility] ([id number]) [address], [facility] [address] [place] [address] THYROID PROFILEon 10-03-2023 Free T4 [Mass/Vol] 1.12 ng/dL Normal 0.61-1.60 [facility] Comment on above: Performed By: #### T BRITTNEY, BMP #### [facility] ([id number]) [address] [address] [place] [address] TSH 4.67 uIU/mL Normal 0.49-4.67 [facility] Comment on above: Performed By: #### T HYR, BMP #### [facility] ([id number]) [address] [address] [place] [address] AMIODARONE SERUMon 3 AMIODARONE 0.6 ug/mL Low 1.5-2.5 [facility] Comment on above: Result Comment: NOTE Reference ranges and high/low indicator flags are provided as general guidelines only. The treating physician must determine appropriate target levels/dosing based on the specific clinical situation. This test was developed and its performance characteristics determined by [facility]'s [facility] [place] ([facility]). It has not been cleared or approved by the FDA. [facility] is regulated under CLIA as qualified to perform high-complexity testing. This test is used for clinical purposes. It should not be regarded as investigational or for research. Performed By: #### A SYLVIA #### [facility] ([id number]) [address] [place] [address] DESETHYLAMIODARONE 0.5 ug/mL Low 1.5-2.5 [facility] Comment on above: Result Comment: NOTE Reference ranges and high/low indicator flags are provided as general guidelines only. The treating physician must determine appropriate target levels/dosing based on the specific clinical situation. Test Performed By: [facility] [address] [place] [address] Process Worker: Harman Nicole III, M.D. IA #[id number] Performed By: #### A SYLVIA #### [facility] ([id number]) [address] [place] [address] COMPLETE BLOOD COUNTon 06-14 Erythrocyte distribution width (RBC) [Ratio] 14.8 % Normal 11.5-15.0 [facility] Comment on above: Performed By: #### 2 4331-1, 3016-3, CMP, CBC #### [facility] ([id number]) [address], [address] [place] [address] Hematocrit (Bld) [Volume fraction] 41.0 % Normal 39-49 [facility] Comment on above: Performed By: #### 2 4331-1, 3016-3, CMP, CBC #### [facility] ([id number]) [address], [address] [place] [address] Hemoglobin (Bld) [Mass/Vol] 14.0 g/dL Normal 13.0-17.0 [facility] Comment on above: Performed By: #### 2 4331-1, 6-3, CMP, CBC #### [facility] ([id number]) [address], [address] [place] [address] MCH (RBC) [Entitic mass] 27.0 pg Normal 27-34 [facility] Comment on above: Performed By: #### 2 4331-1, 3015-3, CMP, CBC #### [facility] ([id number]) [address], [address] [place] [address] MCHC (RBC) [Mass/Vol] 34.1 g/dL Normal 32-36 [facility] Comment on above: Performed By: #### 2 4331-1, 3015-3, CMP, CBC #### [facility] ([id number]) [address], [facility] [address] [place] [address] MCV (RBC) [Entitic vol] 79 fL Low 80-100 [facility] Comment on above: Performed By: #### 2 4331-1, 3015-3, CMP, CBC #### [facility] ([id number]) [address], [facility] [address] [place] [address] Platelet mean volume (Bld) [Entitic vol] 7.6 fL Normal 7-12 [facility] Comment on above: Performed By: #### 2 4331-1, 3015-3, CMP, CBC #### [facility] ([id number]) [address], [facility] [address] [place] [address] Platelets (Bld) [#/Vol] 203 10*3/uL Normal 150-450 [facility] Comment on above: Performed By: #### 2 4331-1, 3015-3, CMP, CBC #### [facility] ([id number]) [address], [address] [place] [address] RBC COUNT 5.18 X10E12/L Normal 4.10-5.70 [facility] Comment on above: Performed By: #### 2 4331-1, 3016-3, CMP, CBC #### [facility] ([id number]) [address], [address] [place] [address] WBC (Bld) [#/Vol] 5.6 10*3/uL Normal 4.0-11.0 [facility] Comment on above: Performed By: #### 2 4331-1, 3016-3, CMP, CBC #### [facility] ([id number]) [address], [address] [place] [address] COMPREHENSIVE METABOLIC PANE Benson 06-14-2023 Albumin [Mass/Vol] 4.5 g/dL Normal 3.2-5.3 [facility] Comment on above: Performed By: #### 2 4331-1, 6-3, CMP, CBC #### [facility] ([id number]) [address], [address] [place] [address] ALP [Catalytic activity/Vol] 55 U/L Normal 39-130 [facility] Comment on above: Performed By: #### 2 4331-1, 3016-3, CMP, CBC #### [facility] ([id number]) [address], [address] [place] [address] ALT [Catalytic activity/Vol] 26 U/L Normal 0-40 [facility] Comment on above: Performed By: #### 2 4331-1, 3016-3, CMP, CBC #### [facility] ([id number]) [address], [address] [place] [address] Anion gap [Moles/Vol] 12 mmol/L Normal 5-15 [facility] Comment on above: Performed By: #### 2 4331-1, 3016-3, CMP, CBC #### [facility] ([id number]) [address], [address] [place] [address] AST [Catalytic activity/Vol] 24 U/L Normal 0-41 [facility] Comment on above: Performed By: #### 2 4331-1, 3016-3, CMP, CBC #### [facility] ([id number]) [address], [address] [place] [address] Bilirubin [Mass/Vol] 0.7 mg/dL Normal 0.3-1.2 [facility] Comment on above: Performed By: #### 2 4331-1, 3016-3, CMP, CBC #### [facility] ([id number]) [address], [address] [place] [address] Calcium [Mass/Vol] 9.8 mg/dL Normal 8.5-10.5 [facility] Comment on above: Performed By: #### 2 4331-1, 3016-3, CMP, CBC #### [facility] ([id number]) [address], [address] [place] [address] Chloride [Moles/Vol] 107 mmol/L Normal 98-109 [facility] Comment on above: Performed By: #### 2 4331-1, 6-3, CMP, CBC #### [facility] ([id number]) [address], [address] [place] [address] CO2 [Moles/Vol] 24 mmol/L Normal 22-32 [facility] Comment on above: Performed By: #### 2 4331-1, 6-3, CMP, CBC #### [facility] ([id number]) [address], [address] [place] [address] Creatinine [Mass/Vol] 1.25 mg/dL Normal 0.60-1.30 [facility] Comment on above: Result Comment: METH OD TRACEABLE TO IDMS STANDARD Performed By: #### 2 4331-1, 3016-3, CMP, CBC #### [facility] ([id number]) [address], [address] [place] [address] GFR/1.73 sq M.predicted among non-blacks MDRD (S/P/Bld) [Vol rate/Area] 63 mL/min/{1.73_m2} Normal >59 [facility] Comment on above: Result Comment: Reported eGFR is based on the CKD-EPI 2020 equation that does not use a race coefficient. Performed By: #### 2 4331-1, 3015-3, CMP, CBC #### [facility] ([id number]) [address], [address] [place] [address] Glucose [Mass/Vol] 87 mg/dL Normal 65-99 [facility] Comment on above: Performed By: #### 2 4331-1, 3015-3, CMP, CBC #### [facility] ([id number]) [address], [address] [place] [address] Potassium [Moles/Vol] 4.1 mmol/L Normal 3.5-5.0 [facility] Comment on above: Performed By: #### 2 4331-1, 3015-3, CMP, CBC #### [facility] ([id number]) [address], [address] [place] [address] Protein [Mass/Vol] 7.6 g/dL Normal 6.0-8.0 [facility] Comment on above: Performed By: #### 2 4331-1, 3015-3, CMP, CBC #### [facility] ([id number]) [address], [address] [place] [address] Sodium [Moles/Vol] 143 mmol/L Normal 134-146 [facility] Comment on above: Performed By: #### 2 4331-1, 3015-3, CMP, CBC #### [facility] ([id number]) [address], [address] [place] [address] Urea nitrogen [Mass/Vol] 17 mg/dL Normal 5-27 [facility] Comment on above: Performed By: #### 2 4331-1, 3015-3, CMP, CBC #### [facility] ([id number]) [address], [address] [place] [address] HGB A1C (GLYCO-HGB)on 2022 Glucose [Mass/Vol] 117 mg/dL Normal [facility] Comment on above: Performed By: #### 2 4331-1, 3016-3, CMP, CBC #### [facility] ([id number]) [address], [address] [place] [address] HbA1c (Bld) [Mass fraction] 5.7 % High 4.4-5.6 [facility] Comment on above: Result Comment: NOTE ADA Guidelines Result HgbA1c Normal : less than 5.7 % Prediabetes : 5.7 % to 6.4 % Diabetes : > 6.4 % Use with caution in patients with abnormal hemoglobin variants as the half-life of red blood cells and in vivo glycation rates are affected. Performed By: #### 2 4331-1, 3016-3, CMP, CBC #### [facility] ([id number]) [address] [facility] [facility], [address] [place] [address] Lipid 1996 panelon Cholesterol [Mass/Vol] 151 mg/dL Normal 150-200 [facility] Comment on above: Performed By: #### 2 4331-1, 3016-3, CMP, CBC #### [facility] ([id number]) [address], [address] [place] [address] Cholesterol in HDL [Mass/Vol] 47 mg/dL Normal >39 [facility] Comment on above: Result Comment: HDL <40 mg/dL - High Risk HDL > or = 40mg/dL- Desirable HDL >60 mg/dL - Negative Risk Performed By: #### 2 4331-1, 3016-3, CMP, CBC #### [facility] ([id number]) [address], [address] [address] Cholesterol in LDL [Mass/Vol] 72 mg/dL Normal <130 [facility] Comment on above: Result Comment: LDL <100 mg/dL - Desirable LDL >160 mg/dL - High Risk Performed By: #### 2 4331-1, 3015-3, CMP, CBC #### [facility] ([id number]) [address], [address] [address] Cholesterol in VLDL [Mass/Vol] 32 mg/dL High 0-30 [facility] Comment on above: Performed By: #### 2 4331-1, 3015-3, CMP, CBC #### [facility] ([id number]) [address], [address] [address] CHOLESTEROL:HDL 3.2 Normal 1.0-5.0 [facility] Comment on above: Performed By: #### 2 4331-1, 3015-3, CMP, CBC #### [facility] ([id number]) [address], [address] [address] Triglyceride [Mass/Vol] 162 mg/dL High 27-150 [facility] Comment on above: Performed By: #### 2 4331-1, 6-3, CMP, CBC #### [facility] ([id number]) [address], [address] [address] TSH Qnon - TSH 5.65 uIU/mL High 0.49-4.67 [facility] Comment on above: Performed By: #### 2 4331-1, 6-3, CMP, CBC #### [facility] ([id number]) [address] [facility], [address] [place] [address] Office Visiton 05-29-2023 Follow-up visit [id number] Carrol Vega 1955 M Date Provider Department Center 05/29/2023 ANURAG BURRELL C[facility] Family History Problem Relation Age of Onset Heart attack Mother Heart attack Brother Family Status - Relation Status Age at Mother Brother Level of Service:94267 OK OFFICE/OUTPATIENT NEW MODERATE MDM 45-59 MINUTES Normal [facility] COMPREHENSIVE METABOLIC PANE Benson 08-25-2021 Albumin [Mass/Vol] 4.4 g/dL Normal 3.6-5.1 [facility] Comment on above: Performed By: #### 7 600, 09628 #### [facility] [place] [address] Sales And Service Engineer: Jairo Aceves MD Albumin/Globulin [Mass ratio] 1.9 {ratio} Normal 1.0-2.5 [facility] Comment on above: Performed By: #### 7 600, 09384 #### [facility] [place] [address] Sales And Service Engineer: Jairo Aceves MD ALP [Catalytic activity/Vol] 76 U/L Normal 35-144 [facility] Comment on above: Performed By: #### 7 600, 20684 #### [facility] [place] [address] Sales And Service Engineer: Jairo Aceves MD ALT [Catalytic activity/Vol] 23 U/L Normal 9-46 [facility] Comment on above: Performed By: #### 7 600, 99042 #### [facility] [place] [address] Sales And Service Engineer: Jairo Aceves MD AST [Catalytic activity/Vol] 19 U/L Normal 10-35 [facility] Comment on above: Performed By: #### 7 600, 02079 #### [facility] [place] [id number] Sales And Service Engineer: Jairo Aceves MD Bilirubin [Mass/Vol] 0.6 mg/dL Normal 0.2-1.2 [facility] Comment on above: Performed By: #### 7 600, 57302 #### [facility] of [address], [address] [place] [address] Sales And Service Engineer: Jairo Aceves MD BUN/CREATININE RATIO NOT APPLICABLE Normal 6-22 [facility] Comment on above: Performed By: #### 7 600, 94717 #### [facility] of [address], [address] [place] [address] Sales And Service Engineer: Jairo Aceves MD Calcium [Mass/Vol] 9.6 mg/dL Normal 8.6-10.3 [facility] Comment on above: Performed By: #### 7 600, 72158 #### [facility] [address], [address] [place] [address] Sales And Service Engineer: Jairo Aceves MD Chloride [Moles/Vol] 106 mmol/L Normal 98-110 [facility] Comment on above: Performed By: #### 7 600, 58051 #### [facility] [address], [address] [place] [address] Sales And Service Engineer: Jairo Aceves MD CO2 [Moles/Vol] 29 mmol/L Normal 20-32 [facility] Comment on above: Performed By: #### 7 600, 99020 #### [facility] [address], [address] [place] [address] Sales And Service Engineer: Jairo Aceves MD Creatinine [Mass/Vol] 1.06 mg/dL Normal 0.70-1.[address] [facility] Comment on above: Result Comment: For patients >49 years of age, the reference limit for Creatinine is approximately 13% higher for people identified as -[place]. Performed By: #### 7 600, 10363 #### [facility] [address], [address] [place] [address] Sales And Service Engineer: Jairo Aceves MD eGFR NON-AFR. STATELESS 73 mL/min/1.73m2 Normal > OR = 60 [facility] Comment on above: Performed By: #### 7 600, 58410 #### [facility] [address], [address] [place] [address] Sales And Service Engineer: Jairo Aceves MD GFR/1.73 sq M.predicted among blacks MDRD (S/P/Bld) [Vol rate/Area] 84 mL/min/{1.73_m2} Normal > OR = 60 [facility] Comment on above: Performed By: #### 7 600, 87945 #### [facility] [address], [address] [place] [address] Sales And Service Engineer: Jairo Aceves MD Globulin (S) [Mass/Vol] 2.3 g/dL Normal 1.9-3.7 [facility] Comment on above: Performed By: #### 7 600, 17152 #### [facility] [address], [address] [place] [address] Sales And Service Engineer: Jairo Aceves MD Glucose [Mass/Vol] 115 mg/dL High 65-99 [facility] Comment on above: Result Comment: Fasting reference interval For someone without known diabetes, a glucose value between 100 and 125 mg/dL is consistent with prediabetes and should be confirmed with a follow-up test. Performed By: #### 7 600, 62646 #### [facility] [address], [address] [place] [address] Sales And Service Engineer: Jairo Aceves MD Potassium [Moles/Vol] 4.0 mmol/L Normal 3.5-5.[address] [facility] Comment on above: Performed By: #### 7 600, 97043 #### [facility] of [address], [address] [place] [address] Sales And Service Engineer: Jairo Aceves MD Protein [Mass/Vol] 6.7 g/dL Normal 6.1-8.1 [facility] Comment on above: Performed By: #### 7 600, 97023 #### [facility] [address], [address] [place] [address] Sales And Service Engineer: Jairo Aceves MD Sodium [Moles/Vol] 142 mmol/L Normal 135-146 [facility] Comment on above: Performed By: #### 7 600, 19411 #### [facility] [address], [address] [place] [address] Sales And Service Engineer: Jairo Aceves MD Urea nitrogen [Mass/Vol] 16 mg/dL Normal 7-25 [facility] Comment on above: Performed By: #### 7 600, 93316 #### [facility] [address], [address] [place] [address] Sales And Service Engineer: Jairo Aceves MD LIPID PANEL, [facility] 03-0 Cholesterol [Mass/Vol] 156 mg/dL Normal <200 [facility] Comment on above: Order Comment: FASTI NG:YES FASTING: YES Performed By: #### 7 600, 20187 #### [facility] [address], [address] [place] [address] Sales And Service Engineer: Jairo Aceves MD Cholesterol in HDL [Mass/Vol] 43 mg/dL Normal > OR = 40 [facility] Comment on above: Order Comment: FASTI NG:YES FASTING: YES Performed By: #### 7 600, 77668 #### [facility] [place] [address] Sales And Service Engineer: Jairo Aceves MD Cholesterol in LDL [Mass/Vol] [...] LDL-C. Bandar KHANNA et al. LENORA. 2013;310(19): 7970-2143 (http://education.AppL[employer].Tytanium Ideas/faq/KAS410) Performed By: #### 7 600, 38597 #### [facility] of [place] [address] [place] [address] Sales And Service Engineer: Jairo Aceves MD Cholesterol.total/Chol esterol in HDL [Mass ratio] 3.6 {ratio} Normal <5.0 [facility] Comment on above: Order Comment: FASTI NG:YES FASTING: YES Performed By: #### 7 600, 39488 #### [facility] [place] [address] Sales And Service Engineer: Jairo Aceves MD NON HDL CHOLESTEROL 113 mg/dL (calc) Normal <130 [facility] Comment on above: Order Comment: FASTI NG:YES FASTING: YES Result Comment: For patients with diabetes plus 1 major ASCVD risk factor, treating to a non-HDL-C goal of <100 mg/dL (LDL-C of <70 mg/dL) is considered a therapeutic option. Performed By: #### 7 600, 83252 #### [facility] [place] [address] Sales And Service Engineer: Jairo Aceves MD Triglyceride [Mass/Vol] 197 mg/dL High <150 [facility] Comment on above: Order Comment: FASTI NG:YES FASTING: YES Performed By: #### 7 600, 04620 #### [facility] [place] [address] Sales And Service Engineer: Jario Aceves MD BASIC METABOLIC PANEL 01-23 BUN/CREATININE RATIO NOT APPLICABLE Normal 6-22 [facility] Comment on above: Performed By: #### 1 0165 #### [facility] [place] [address] Sales And Service Engineer: Jairo Aceves MD Calcium [Mass/Vol] 9.9 mg/dL Normal 8.6-10.3 [facility] Comment on above: Performed By: #### 1 0165 #### [facility] [place] [address] Sales And Service Engineer: Jairo Aceves MD Chloride [Moles/Vol] 108 mmol/L Normal 98-110 [facility] Comment on above: Performed By: #### 1 0165 #### [facility] [place] [address] Sales And Service Engineer: Jairo Aceves MD CO2 [Moles/Vol] 24 mmol/L Normal 20-32 [facility] Comment on above: Performed By: #### 1 0165 #### [facility] [place] [address] Sales And Service Engineer: Jairo Aceves MD Creatinine [Mass/Vol] 1.15 mg/dL Normal 0.70-1.[address] [facility] Comment on above: Result Comment: For patients >49 years of age, the reference limit for Creatinine is approximately 13% higher for people identified as -[place]. Performed By: #### 1 0165 #### [facility] [place] [address] Sales And Service Engineer: Jairo Aceves MD eGFR NON-AFR. STATELESS 66 mL/min/1.73m2 Normal > OR = 60 [facility] Comment on above: Performed By: #### 1 0165 #### [facility] [place] [address] Sales And Service Engineer: Jairo Aceves MD GFR/1.73 sq M.predicted among blacks MDRD (S/P/Bld) [Vol rate/Area] 76 mL/min/{1.73_m2} Normal > OR = 60 [facility] Comment on above: Performed By: #### 1 0165 #### [facility] [place] [address] Sales And Service Engineer: Jairo Aceves MD Glucose [Mass/Vol] 116 mg/dL High 65-99 [facility] Comment on above: Result Comment: Fasting reference interval For someone without known diabetes, a glucose value between 100 and 125 mg/dL is consistent with prediabetes and should be confirmed with a follow-up test. Performed By: #### 1 0165 #### [facility] [place] [address] Sales And Service Engineer: Jairo Aceves MD Potassium [Moles/Vol] 4.3 mmol/L Normal 3.5-5.[address] [facility] Comment on above: Performed By: #### 1 0165 #### [facility] [address], [address] [place] [address] Sales And Service Engineer: Jairo Aceves MD Sodium [Moles/Vol] 142 mmol/L Normal 135-146 [facility] Comment on above: Performed By: #### 1 0165 #### [facility] [address], [address] [place] [address] Sales And Service Engineer: Jairo Aceves MD Urea nitrogen [Mass/Vol] 14 mg/dL Normal 7-25 [facility] Comment on above: Performed By: #### 1 0165 #### [facility] [place] [address] Sales And Service Engineer: Jairo Aceves MD Encounters Encounter Date Encounter Type Care Provider Facility Start: 03-28-2024 Evaluation and manag ement of inpatient [facility] Start: 03-28-2024 [facility] Start: 03-27-2024 Evaluation and manag ement of inpatient [facility] Start: 03-27-2024 ambulatory [facility] Start: 03-27-2024 End: 03-28-2024 Evaluation and management of inpatient [facility] Start: 02-05-2024 End: 02-05-2024 ambulatory [facility] Start: 02-05-2024 End: 02-05-2024 ambulatory [facility] Start: 11-02-2023 End: 11-03-2023 Evaluation and management of inpatient [facility] Start: 10-04-2023 End: 10-04-2023 ambulatory [facility] Start: 10-03-2023 End: 10-03-2023 ambulatory [facility] Start: 09-03-2023 Refill Casey connor DO Work Phone: [facility] Comment on above: Mixed hyperlipidemia (Primary Dx) Start: 08-23-2023 Refill Casey connor DO Work Phone: [facility] Start: 07-23-2023 Refill Casey connor DO Work Phone: [facility] - [facility] Start: 07-06-2023 Refill Casey connor DO Work Phone: [facility] - [facility] Start: 06-15-2023 End: 06-16-2023 ambulatory [facility] Start: 06-14-2023 End: 06-15-2023 ambulatory [facility] Start: 06-14-2023 End: 06-14-2023 ambulatory [facility] Start: 05-29-2023 End: 05-29-2023 ambulatory [facility] Start: 08-23-2020 End: 08-24-2020 Patient encounter procedure NONE LISTED REQUEST Facility: Procedures Date Procedure Procedure Detail Performing Clinician Start: 06-14-2023 Adult depression screening assessment Casey Fitzgerald DO Work Phone: Plan of Treatment Date Care Activity Detail Author Start: 02-02-2031 DTaP,Tdap and Td Vaccines (3 - Td or Tdap) DTaP,Tdap and Td Vaccines (3 - Td or Tdap) [facility] Start: 06-24-2024 Screening for malignant neoplasm of colon Colon Cancer Screening 5 Year Sigmoidoscopy [facility] Comment on above: Postponed from 10/22 (Not Indicated) Start: 06-14-2024 Adult BMI Screening Adult BMI Screen ing [facility] Start: 06-14-2024 Depression Screening Depression Scre ening [facility] Start: 06-14-2024 Fall Risk Screening Fall Risk Screen ing [facility] Start: 06-14-2024 Tobacco Screening Tobacco Screening [facility] Start: 04-21-2024 End: 04-21-2024 Patient encounter procedure 04/21/2024 10:45 AM EDT Office Visit [facility] [address] [place] [address] Sherin Costa MD [address] [address] [place] [address] [facility] Start: 02-05-2024 End: 02-05-2024 Patient encounter procedure 02/05/2024 10:00 AM EDT [facility] [address] [place] [address] [facility] Start: 01-31-2024 Medicare Annual Wellness Visit Medicare Annual Wellness Visit [facility] Start: 01-24-2024 Adult BMI Follow Up Plan Adult BMI Follow Up Plan [facility] Start: 10-03-2023 End: 10-03-2023 Patient encounter procedure 10/03/2023 10:45 AM EDT [facility] [address] [place] [address] Casey Fitzgerald DO [address] [place] [address] [facility] Start: 09-21-2023 End: 09-21-2023 Patient encounter procedure 09/21/2023 10:00 AM EDT Office Visit [facility] [address] [place] [address] Casey Fitzgerald DO [address] [place] [address] [facility] Start: 09-19-2023 End: 09-19-2023 Patient encounter procedure 09/19/2023 9:00 AM EDT Office Visit [facility] [address] [place] [id number] MaddieheatherMineshCasey Pino DO [address], [facility] [place] [address] [facility] Start: 05-12-2023 COVID-19 Vaccine ( season) COVID-19 Vaccine ( season) [facility] Immunizations Immunization Date Immunization Notes Care Provider Fa cility 03-17-2023 Influenza Vaccine, Quadrivalent, Adjuvanted Casey Furlong DO Work Phone: [facility] 03-17-2023 RSV, recombinant, protein subunit RSVpreF, adjuvant reconstituted, 0.5 mL, PF Casey Furlong DO Work Phone: [facility] 02-19-2023 zoster vaccine recombinant Casey Furlong DO Work Phone: [facility] 11-13-2022 zoster vaccine recombinant Casey Furlong DO Work Phone: [facility] 04-05-2022 Influenza Vaccine, Quadrivalent, Adjuvanted Casey Furlong DO Work Phone: [facility] Work Phone: 03-28-2022 influenza virus vacc ine, unspecified formulation Casey Furlong DO Work Phone: [facility] 01-19-2022 Covid-19, Mrna, Lnp- s, Pf, 30 Mcg/0.3 Ml Dose, Tobi-sucrose Casey Furlong DO Work Phone: [facility] 05-10-2021 Influenza Vaccine, Quadrivalent, Adjuvanted Casey Furlong DO Work Phone: [facility] 05-09-2021 influenza, seasonal, injectable Casey Furlong DO Work Phone: [facility] 02-02-2021 tetanus toxoid, redu alexi diphtheria toxoid, and acellular pertussis vaccine, adsorbed Casey Furlong DO Work Phone: [facility] 07-14-2020 pneumococcal polysaccharide vaccine, 23 valent Casey Furlong DO Work Phone: [facility] 04-15-2020 influenza virus vacc ine, unspecified formulation Casey Furlong DO Work Phone: [facility] 06-12-2019 influenza, injectabl e, quadrivalent, preservative free Casey Furlong DO Work Phone: [facility] 03-26-2019 influenza, injectabl e, quadrivalent, preservative free Casey Furlong DO Work Phone: [facility] 01-27-2019 zoster vaccine recombinant Casey Furlong DO Work Phone: [facility] 03-28-2018 influenza, injectabl e, quadrivalent, contains preservative Casey Furlong DO Work Phone: [facility] 03-27-2018 influenza, injectabl e, quadrivalent, preservative free Casey Furlong DO Work Phone: [facility] 03-28-2017 Influenza, injectabl e, Madin Domitila Canine Kidney, preservative free, quadrivalent Casey Furlong DO Work Phone: [facility] 03-07-2016 influenza, seasonal, injectable Casey Furlong DO Work Phone: [facility] 06-03-2015 zoster vaccine, live Casey Furlong DO Work Phone: [facility] 05-31-2015 influenza, seasonal, injectable Casey Furlong DO Work Phone: [facility] 05-31-2015 pneumococcal polysaccharide vaccine, 23 valent Casey Furlong DO Work Phone: [facility] 04-10-2014 influenza, seasonal, injectable Casey Fitzgerald DO Work Phone: [facility] 09-06-2009 tetanus toxoid, redu alexi diphtheria toxoid, and acellular pertussis vaccine, adsorbed Casey Fitzgerald [facility] Payers Date Payer Category Payer Medicare [employer] MEDICARE UHC MEDICARE ADVANTAGE PPO [id number] 2022-Present [phone] [address] [address] [place] [address] [id number] 2022 Medicare [id number] 2022 Medicare [id number] 1959 Self-pay 1955 Unknown [id number] 1954 Unknown [id number] 286 1954 Unknown [id number] 286 1954 Unknown [id number] 286 1954 Unknown [id number] 286 1954 Unknown [id number] 286 1954 Unknown [id number] 286 1954 Unknown [id number] 286 Unknown [id number] 93 Social History Date Type Detail Facility Start: 04-05-2022 Tobacco smoking status NHIS Ex-smoker [facility] Start: 06-25-1969 End: 06-25-1983 History of tobacco use Current smoker [facility] Start: 06-25-1969 End: 06-25-1983 History of tobacco use Cigarette Smoker [facility] Start: 04-03-2022 End: 04-05-2022 Cigarettes smoked current (pack per day) - Reported 1 [facility] Start: 04-05-2022 Tobacco use and exposure Smokeless tobacco non-user [facility] Start: 06-14-2023 Alcohol intake Current drinker of alcohol (finding) [facility] Start: 04-03-2022 End: 06-15-2023 [facility] [place] [facility] Has the [employer], oil, or water company threatened to shut off services in your home in past 12Mo No [facility] Do you belong to any clubs or organizations such as buddhist groups, unions, fraternal or athletic groups, or school groups? Yes [facility] Are you now , , , , never or living with a partner? [facility] How often to you hav e a drink containing alcohol? Monthly or less [facility] How many standard dr inks containing alcohol do you have on a typical day? 1 or 2 [facility] How often do you hav e 6 or more drinks on 1 occasion? Never [facility] How hard is it for y ou to pay for the very basics like food, housing, medical care, and heating Not very hard [facility] Adolescent depressio n screening assessment 0 [facility] Do you feel stress - tense, restless, nervous, or anxious, or unable to sleep at night because your mind is troubled all the time - these days [OSQ] Only a little [facility] Start: 04-03-2022 Education 21 [facility] Start: 04-04-2022 Alcohol Comment Occasional [facility] Start: 1955 Sex Assigned At Male [facility] Start: 12-24-2018 Gender identity Identifies as male gender (finding) [facility] Start: 12-24-2018 Sexual orientation Heterosexual (finding) [facility] Medical Equipment Procedure Code Equipment Code Equipment Origin al Text Equipment Identifier Dates Hip Dep Pf Cerm/ Cerm Construct - [id number] Start: 03-26-2018 Delta Cer Head 1 08/08 36mm +5 Hd Fem 36mm +5mm 06/07 Tpr - Sna - [id number] Start: 03-26-2018 Scr Canc Hip Cnn Gription 20mm Pinn Can Bone Screw [id number] - Sna - [id number] Start: 03-26-2018 Progress note 03-27-2024 Note Date & Type Note Facility 03-27-2024 Note 03/27/24 1638 Admission Assessment Questions Verify insurance with patient Yes Do you understand medical disease or what brought you into the hospital? Yes Who is your current PCP? Casey Fitzgerald MD Can I schedule a follow up appointment for you at the time of discharge? No Do you understand why you are taking your current medications? Yes Are you taking your medications as prescribed? Yes Did patient provide teach back? No Pharmacy Bedside Delivery Status Interested Does the patient have a case resource manager assigned to them through their insurance? No Living Arrangement (Current/Prior to Hospitalization) Private residence;Home self care (lives w/ in one story home. Has 3 entry steps) Does the patient have history of HHC or SNF? Yes ([facility]) Assistive Device Cane;Other (Comment) (CPAP) Patient's goal for discharge home Was patient reminded that goal for discharge is 11am? No Does the patient have transportation at discharge? Yes Type of Residence Private residence Is PT/OT appropriate? No Is PT/OT ordered? No Is SW consult appropriate? No Is SW consult ordered? No Do you understand the benefits of MyChart? Yes Were you able to send link and activate MyChart? MyChart already active [facility] Clinical Note 03-27-2024 Note Date & Type Note Facility 03-27-2024 Note Patient: Carrol sung Procedure Summary Date: 03/27/24 Room / Location: [facility] EP / [facility] (Cath) Anesthesia Start: 825 Anesthesia Stop: 120 Procedure: Ablation a-fib paroxysmal Diagnosis: Paroxysmal atrial fibrillation (CMS/HCC) (Paroxysmal atrial fibrillation (CMS/HCC) [I48.0]) Providers: Anurag Cruz MD Responsible Provider: Dwight Cortez MD Anesthesia Type: general ASA Status: 3 Anesthesia Type: general Vitals Value Taken Time BP 143/79 03/27/24 1530 Temp 36 ???C (96.8 ???F) 03/27/24 1212 Pulse 59 03/27/24 1541 Resp 11 03/27/24 1541 SpO2 100 % 03/27/24 1541 Vitals shown include unvalidated device data. Anesthesia Post Evaluation Patient location during evaluation: PACU Patient participation: complete - patient cannot participate Level of consciousness: combative Pain score: 1 Pain management: adequate Airway patency: patent Two or more strategies used to mitigate risk of obstructive sleep apnea Cardiovascular status: hemodynamically stable Respiratory status: room air and nonlabored ventilation Hydration status: euvolemic Patient is hemodynamically stable and is able to be discharged from PACU per anesthesia protocol. There were no known notable events for this encounter. [facility] Clinical Note 03-27-2024 Note Date & Type Note Facility 03-27-2024 Note Patient: Carrol sung Procedure Summary Date: 03/27/24 Room / Location: [facility] EP / [facility] (Cath) Anesthesia Start: 825 Anesthesia Stop: Procedure: Ablation a-fib paroxysmal Diagnosis: Paroxysmal atrial fibrillation (CMS/HCC) (Paroxysmal atrial fibrillation (CMS/HCC) [I48.0]) Providers: Anurag Cruz MD Responsible Provider: Dwight Cortez MD Anesthesia Type: general ASA Status: 3 Anesthesia Post Transport Note Transport to: PACU O2 Route: face mask Oxygen Flow (L/min): 10 Patient Monitor: transport monitor Transport monitor type: ECG, NIBP and SpO2 Transport: uneventful Patient condition is: stable Comments: Patient was able to respond and follow verbal commands throughout transport process [facility] Procedure note 03-27-2024 Note Date & Type Note Facility 03-27-2024 Note ATRIAL FIBRILLATION ABLATION PROCEDURE NOTE DATE OF PROCEDURE: 03/27/2024 PERFORMING PHYSICIAN: Dr. Anurag Cruz CONSENT: Patient NAME OF THE PROCEDURE: Pulmonary Vein Isolation and Comprehensive EP study. INDICATIONS FOR PROCEDURE: 1. Persistent atrial fibrillation. FLUROSCOPY: 2.1min/ 25mGy. EBL: 15cc SPECIMEN REMOVED: None PROCEDURES PERFORMED: 1. Sonosite guided venous access as noted below and images stored in PACS. 2. Comprehensive EP study and catheter ablation for persistent atrial fibrillation through the pulmonary vein isolation technique. This includes right atrial recording and pacing, His bundle recording and right ventricular recording and pacing. 3. Intracardiac EP 3D mapping. 4. Intracardiac echocardiogram 5. Left atrial and coronary sinus recording and pacing to assess ablation results. 6. Left heart pressure measurements and LV pacing and recording. 7. Induction of arrhythmia and testing of ablation results using intravenous adenosine infusion. 8. Fluroscopy. INDICATION: 68year old with past medical history of Hypertension, [...] scheduled for TAMARA/cardioversion which was canceled due him converting to SR. He denies chest pain, shortness of breath, LE edema. He is currently on Amio and DOAC and tolerating well. He presents for Afib ablation with intent to come off Amiodarone. PROCEDURE NOTE: On the day of presentation, he was noted to be in sinus rhythm following which the TAMARA was deferred. Risks, benefits and alternatives of the procedure were discussed with the patient and family who agreed to proceed. Please refer to my consult note for details of the discussion and of indications. The patient was prepped and draped following which four venous access was procured on right side as noted below. Ultrasound was used to determine the course and patency of the femoral veins on both sides and they were noted to be patent and the image stored in PACS. After infiltration with 1% lidocaine, 4 venous sheaths were placed in the right as noted below and a femoral arterial line was placed by me. LFA: 4F fo hemodynamic monitoring. RFV: 8Fx3, [employer] ThermoCool SF Bi-Directional over SL1/ Vizigo, SL1: Octoray,, CS Catheter (EZ Steer). 9F: ICE catheter, Following venous access, heparin bolus was given followed by continuous intravenous drip to target ACT around 350. An intracardiac ultrasound catheter was inserted into the right atrium to examine the right atrial anatomy, atrial septum, pulmonary vein anatomy and to monitor for pericardial effusion and guide transseptal access. The LA and RA was only moderately dilated. At baseline, there was no pericardial effusion and no KAVYA clot but noted a very prominent Coumadin ridge. Esophagus was mapped using the [employer] 3D mapping software and noted to be towards the middle. Transeptal access was procured with ICE guidance using a SL-1 sheath and Alvin needle. LV pacing was performed and no VA conduction was seen @ 600ms but present at 700ms with no evidence of left sided accessory pathway. Following this, Octoray,catheter was advanced and the multipolar mapping performed of the LA creating a geometry as well as bipolar voltage assessment was made. The LA was noted to be healthy. After FAM geometry was performed, a 2nd transseptal was performed with an SL1 sheath using a Alvin needle. Following transseptal, the SL1 sheath was removed and Vizigo sheath was advanced over which the ablation catheter ST-SF thermocol ablation catheter was advanced. Ablation was then performed. A cooling tube was advanced to the stomach and position confirmed with fluoroscopy and cooling initiated to 4C but there was difficulty with cooling. So this was removed and a temperature probe was placed to ensure there was no change in temperature >1C from baseline of 34.9C. Ablation was performed using 40 hickman for 10-12s in the anterior LA and 5-8seconds in the posterior wall and roof area. After completion of the left sided WACA, no signals were noted in the LSPV or LIPV andentrance and exit block was noted. After this, I proceeded to perform ablation of the right-sided vein. Following right WACA, the veins were isolated. I ensured that on the anterior aspect of right WACA and in emi area, phrenic capture was ruled out before any ablation was performed. After this, perivenous pacing was performed around each individual vein, ensuring there was isolation. Adenosine was given a 12 mg dose and AV block and hypotension was noted. Temprature change was noted to a maximum of 35.6C. No (more content not included)... [facility] Procedure note 03-27-2024 Note Date & Type Note Facility 03-27-2024 Note Airway Date/Time: 03/27/2024 8:59 AM Urgency: elective Airway not difficult General Information and Staff Patient location during procedure: OR Anesthesiologist: Dwight Cortez MD Resident/HYDRATION PLANT OPERATOR/CAA: Columba Del Cid MD Performed: anesthesiologist Learner assisted: Jennifer medical student Indications and Patient Condition Indications for airway management: anesthesia Spontaneous Ventilation: absent Sedation level: deep Preoxygenated: yes Patient position: sniffing Mask difficulty assessment: 1 - vent by mask Planned trial extubation Final Airway Details Final airway type: endotracheal airway Successful airway: ETT Cuffed: yes Successful intubation technique: video laryngoscopy Facilitating devices/methods: intubating stylet Endotracheal tube insertion site: oral Blade: Cornejo Blade size: #4 ETT size (mm): 7.0 Cormack-Lehane Classification: grade I - full view of glottis Placement verified by: chest auscultation and capnometry Measured from: lips ETT to lips (cm): 23 Number of attempts at approach: 1 Number of other approaches attempted: 0 [facility] Progress note 02-05-2024 Note Date & Type Note Facility 02-05-2024 Note [facility] Consult Note Reason for [...] on file Intimate Partner Violence: Unknown (08/16/2023) [place] Safety & Environment Fear of Current or [...] puff in the morning and at bedtime. [id number]-[id number]-ast 1,000-230-60 mg capsule Take 1 capsule by [...] no xanthelasma ENM (more content not included)... [facility] Progress note 05-29-2023 Note Date & Type Note Facility 05-29-2023 Note [facility] Consult Note Reason for visit: Afib [...] puff in the morning and at bedtime. [id number]-cntlfuk-ast 1,000-230-60 mg capsule Take 1 capsule by [...] jugular venous pr (more content not included)... 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 Living Will 04/05/2018 2:58 PM Latest Code Status on File Code Status Date Activated Date Inactivated Comments Full Code 03/26/2018 12:34 PM 03/29/2018 1:21 PM Additional Source Comments INFORMATION SOURCE (unrecogn ized section and content) DATE CREATED AUTHOR 08/19/2020 [facility] DATE CREATED AUTHOR AUTHOR'S ORGANIZ ATION 08/25/2021 [facility] DATE CREATED AUTHOR AUTHOR'S ORGANIZ ATION 10/05/2023 [facility] DATE CREATED AUTHOR AUTHOR'S ORGANIZ ATION 11/09/2023 [facility] DATE CREATED AUTHOR AUTHOR'S ORGANIZ ATION 02/06/2024 [facility] DATE CREATED AUTHOR AUTHOR'S ORGANIZ ATION 03/28/2024 [facility] (unrecognized sect ion and content) No Status Records FoundNo Status Records FoundNo Status Records FoundNo Status Records FoundNo Status Records Found Reason for Visit (unrecogniz ed section and content) Reason Comments Med Refill Care Teams (unrecognized sec tion and content) Carbonizer Tester Relationship Specialty Start Date End Date Casey Fitzgerald DO [address] [place] [address] PCP - General Family Medicine 02/26/18 Carbonizer Tester Relationship Specialty Start Date End Date Casey Fitzgerald DO [address] [place] [address] PCP - General Family Medicine 02/26/18 FOR [...] BE BASED ON THE PRIMARY CLINICAL RECORDS. [facility]. provides no warranty or guarantee of the accuracy or completeness of information in this document.
[2024-03-31 11:51] LABS: Basophils Absolute Auto 0.1 10^3/uL (0.0-0.1); Basophils Percent Auto 1.4 % (0.2-2.0); Eosinophils Absolute Auto 0.1 10^3/uL (0.0-0.7); Eosinophils Percent Auto 2.5 % (0.9-7.0); Immature Granulocytes Abs Auto 0.01 10^3/uL (0.00-0.03); Immature Granulocytes Pct Auto 0.2 % (0.0-0.5); Lymphocytes Absolute Auto 1.8 10^3/uL (1.2-3.8); Mean Corpuscular HGB Conc 34.1 g/dL (29.9-35.2); Mean Corpuscular Hemoglobin 29.2 pg (25.9-34.0); Mean Corpuscular Volume 85.6 fL (80.0-94.0); Mean Platelet Volume 9.5 fL (9.5-13.5); Monocytes Absolute Auto 0.6 10^3/uL (0.3-0.8); Monocytes Percent Auto 10.2 % (1.7-12.0); Neutrophils Percent Auto 53.7 % (43.0-75.0); Platelet Count 151 10^3/uL (150-450); Red Blood Count 4.79 10^6/uL (4.70-6.10); Red Cell Distribution Width 13.6 % (11.0-15.0); White Blood Count 5.6 10^3/uL (4.0-11.0)
[2024-03-31 12:05] LABS: Anion Gap 12.7; BUN Creatinine Ratio 12.4; Calcium 9.1 mg/dL (8.5-10.1); Carbon Dioxide 25.9 mmol/L (21.0-32.0); Chloride 106 mmol/L (98-107); Estimated GFR (African America 55 (>=60 mL/min/1.73m^2); Estimated GFR (Non-African Ame 45 (>=60 mL/min/1.73m^2); Glucose 105 mg/dL (74-106); Potassium 3.6 mmol/L (3.5-5.1); Sodium 141 mmol/L (136-145)
== END 2024-03-31 11:22 | disposition home or self-care (01) ==
LOC: LAB 11:24
PROVIDERS: PCP Family Medicine; Visit Provider Nurse Practitioner
DX: I11.0 Hypertensive heart disease with heart failure (principal)
CPT/HCPCS: 36415; 80048; 85025

== ENCOUNTER 2024-04-22 10:16 | Outpatient (OUT) | payer MEDICARE, SELFPAY ==
--- OUTSIDE RECORDS SUMMARY | 2024-04-22 10:42 | XMS_ITS | CCD ---
Author Organization [facility] Care Team Providers Care Attendant Arcade Name Role Phone REQUEST, NONE LISTED Attending Unavailable REQUEST, NONE LISTED Consulting Unavailable REQUEST, NONE LISTED Admitting Unavailable Furlong Casey REED Primary Care Provider ANGELNG, CASEY Pringle Referring Unavailable FURLONG, CASEY G Primary Care Unavailable FURLONG, CASEY G Referring Unavailable FURLONG, CASEY G Primary Care Unavailable DESMOND TATE Admitting Unavailable DESMOND TATE Attending Unavailable DESMOND TATE Referring Unavailable FURLONG, CASEY Pringle Primary Care Unavailable YUHADESMOND Stuart Attending Unavailable YUHASDESMOND Referring Unavailable FURLONG, CASEY Pringle Primary Care Unavailable FURLONG, CASEY Pringle Referring Unavailable FURLONG, CASEY G Primary Care Unavailable DALEANURAG Lima Referring Unavailable ZOEYSYDNEY Referring Unavailable MARTTONY Referring Unavailable DALEANURAG Attending Unavailable YUERAMONA FORBES Attending Unavailable DALEANURAG Attending Unavailable DALEANURAG Referring Unavailable DALEANURAG Admitting Unavailable HAZELSACHA Attending Unavailable FURLONG, CASEY G Attending Unavailable FURLONG, CASEY G Referring Unavailable FURLONG, CASEY G Primary Care Unavailable FURLONG, CASEY G Referring Unavailable FURLONG, CASEY G Primary Care Unavailable FURLONG, CASEY G Attending Unavailable FURLONG, CASEY G Referring Unavailable FURLONG, CASEY G Primary Care Unavailable SHERIN JACKSON Attending Unavailable FURLONG, CASEY G Referring Unavailable FURLONG, CASEY G Primary Care Unavailable FURLONG, CASEY G Attending Unavailable FURLONG, CASEY G Referring Unavailable FURLONG, CASEY G Primary Care Unavailable Allergies Allergy Classification Reported Allergen(s) Allergy Type Date of Onset Reaction(s) Facility (1 source) Meperidine Drug Allergy 1 [facility] Repository (5 sources) Morphine; Translations: [MORPHINE] Drug Allergy 8 [facility] Rep[facility] (11 sources) Meperidine; Translations: [MEPERIDINE] Drug Allergy 8 Hives, Shortness Of Breath, Swelling [facility] (7 sources) Morphine Drug Allergy 8 Tachycardia, Palpitations [facility] (10 sources) Morphine; Translations: [MORPHINE SULFATE] Drug Allergy 2 Palpitations [facility] Work Phone: Medications Current Medications Medication Drug Class(es) Dates Sig (Normalized) Sig (Original) acetaminophen 325 mg oral tablet (7 sources) take 2 tablets by mouth every six hours as needed for pain acetaminophen (TYLENOL) 325 mg tablet Take 2 tablets (650 mg total) by mouth every 6 (six) hours as needed for pain. Active [id number] 200 actuat albuterol 0.09 mg/actuat metered dose inhaler (7 sources) beta2-Adrenergic Agonist Start: 10-02-2022 take 2 puff(s) by inhalation every six hours as needed for wheezing albuterol (PROVENTIL HFA;VENTOLIN HFA) 90 mcg/actuation inhaler Indications: Moderate persistent asthma without complication Inhale 2 puffs every 6 (six) hours as needed for wheezing. 18 g 6 10/02/2022 Active amiodarone hydrochloride 200 mg oral tablet (7 sources) Antiarrhythmic Start: 11-09-2022 End: 06-26-2024 take 1 tablet by mouth in the morning amiodarone (PACERONE) 200 mg tablet Take 1 tablet (200 mg total) by mouth in the morning. 90 tablet 6 11/09/2022 06/26/2024 Active apixaban 5 mg oral tablet (7 sources) Factor Xa Inhibitor Start: 12-19-2022 take 1 tablet by mouth in the morning ELIQUIS 5 mg tablet Indications: Atrial fibrillation, unspecified type ([facility]) TAKE 1 TABLET BY MOUTH IN THE MORNING AND 1 TABLET BEFORE BEDTIME 200 tablet 2 12/19/2022 Active atorvastatin 80 mg oral tablet (8 sources) HMG-CoA Reductase Inhibitor Start: 01-03-2024 take 1 tablet by mouth once daily atorvastatin (LIPITOR) 80 mg tablet Indications: Mixed hyperlipidemia TAKE 1 TABLET BY MOUTH ONCE DAILY 100 tablet 2 01/03/2024 Active Start: 10-28-2022 End: 09-06-2023 take 1 tablet by mouth once daily atorvastatin (LIPITOR) 80 mg tablet Indications: Mixed hyperlipidemia TAKE 1 TABLET BY MOUTH ONCE DAILY 100 tablet 0 09/06/2023 Active bisoprolol fumarate 10 mg / hydroCHLOROthiazide 6.25 mg oral tablet (8 sources) Thiazide Diuretic, beta-Adrenergic Bela Start: 03-17-2024 take 1 tablet by mouth once daily bisoprolol-hydroCHLOROthiazide (ZIAC) 10-6.25 mg per tablet take 1 tablet by mouth daily 100 tablet 2 03/17/2024 Active Start: 10-01-2022 End: 07-07-2023 take 1 tablet by mouth once daily bisoprolol-hydroCHLOROthiazide (ZIAC) 10 -6.25 mg per tablet TAKE 1 TABLET BY MOUTH DAILY 100 tablet 2 07/07/2023 Active docusate sodium 100 mg oral capsule (7 sources) Start: 06-14-2023 take 1 capsule by mouth in the morning, then take 1 capsule by mouth at bedtime docusate sodium (COLACE) 100 mg capsule Take 1 capsule (100 mg total) by mouth in the morning and 1 capsule (100 mg total) before bedtime. 06/14/2023 Active esomeprazole 40 mg delayed release oral capsule (1 source) Proton Pump Inhibitor End: 04-09-2024 esomeprazole (NexIUM) 40 mg capsule Take 20 mg by mouth. 04/09/2024 Discontinued (Therapy completed) famotidine 20 mg oral tablet (2 sources) Histamine-2 Receptor Antagonist Start: 03-28-2024 End: 04-27-2024 take 1 tablet by mouth in the morning, then take 1 tablet by mouth at bedtime famotidine (PEPCID) 20 mg tablet Take 1 tablet (20 mg total) by mouth in the morning and 1 tablet (20 mg total) before bedtime. 03/28/2024 04/27/2024 Active fluticasone propionate 0.05 mg/actuat metered dose nasal spray (7 sources) Corticosteroid take 2 spray(s) nasal route in the morning fluticasone propionate (FLONASE) 50 mcg/actuation nasal spray Administer 2 sprays into each nostril in the morning and 2 sprays before bedtime. Active fluticasone / salmeterol (7 sources) Corticosteroid, beta2-Adrenergic Agonist Start: 10-09-2022 fluticasone propion-salmeteroL (ADVAIR) 250-50 mcg/dose DISKUS Ok to give advair 250/25 (not able to electronically prescribe this dose). 1 puff twice a day, 90 day supply x 4 refills 180 each 3 10/09/2022 Active whnmp-vt-7-dha-epa -phospho-ast 1,000-230-60 mg capsule (7 sources) pzgcw-al-4-dha-e pa- phospho-ast 1,000-230-60 mg capsule Take by mouth daily. Active vqirt-rv-4-dha-e fg-zhcidsf-mzs 1,000-230-60 mg capsule Take by mouth daily. 0 Active levocetirizine dihydrochloride 5 mg oral tablet (7 sources) Histamine-1 Receptor Antagonist take 1 tablet by mouth once daily in the evening levocetirizine (XYZAL) 5 mg tablet Take 1 tablet (5 mg total) by mouth every evening. Active levothyroxine sodium 0.025 mg oral tablet (8 sources) l-Thyroxine Start: 12-04-19 24 take 1 tablet by mouth in the morning levothyroxine (SYNTHROID, LEVOTHROID) 25 MCG tablet TAKE 1 TABLET BY MOUTH IN THE MORNING 100 tablet 2 12/04/2023 Active Start: 06-15-2023 End: 08-23-2023 take 1 tablet by mouth in the morning levothyroxine (SYNTHROID, LEVOTHROID) 25 MCG tablet TAKE 1 TABLET BY MOUTH IN THE MORNING 100 tablet 0 08/23/2023 Active lisinopril 10 mg oral tablet (9 sources) Angiotensin Converting Enzyme Inhibitor Start: 05-15-2023 End: 04-07-2024 take 1 tablet by mouth once daily lisinopriL (PRINIVIL,ZESTRIL) 10 mg tablet take 1 tablet by mouth daily 100 tablet 2 04/07/2024 Active iomlpyow-goew-NO -calcium &mins (THERAGRAN-M) 9 mg iron-400 mcg tablet (7 sources) gtlszbzc-dlbn-XU -calcium &mins (THERAGRAN-M) 9 mg iron-400 mcg tablet Take 1 tablet by mouth in the morning. Active zihbxqwa-idpw-QP -calcium &mins (THERAGRAN-M) 9 mg iron-400 mcg tablet Take 1 tablet by mouth in the morning. 0 Active [facility] spa er (6 sources) Start: 06-02-2019 End: 04-09-2024 [facility] er USE WITH INHALER DIRECTED 1 each 06/02/2019 04/09/2024 Discontinued (Therapy completed) Start: 06-02-2019 [facility] spacer USE WITH INHALER DIRECTED 1 each 06/02/2019 Active Start: 06-02-2019 [facility] spacer USE WITH INHALER DIRECTED 1 each 0 06/02/2019 Active pantoprazole 40 mg delayed release oral tablet (2 sources) Proton Pump Inhibitor Start: 03-28-2024 End: 04-27-2024 pantoprazole (PROTONIX) 40 mg EC tablet Take 1 tablet (40 mg total) by mouth. 03/28/2024 04/27/2024 Active sucralfate 1000 mg oral tablet (2 sources) Aluminum Complex Start: 03-28-2024 End: 04-27-2024 sucralfate (CARAFATE) 1 gram tablet Take 1 tablet (1 g total) by mouth. 03/28/2024 04/27/2024 Active Problems Active Problems Problem Classification Problem Date Documented Date Episodic/Chronic Asthma (7 sources) Asthma; Translations: [Unspecified asthma, uncomplicated] Onset: 03-30-2022 03-30-2022 Chronic Cardiac dysrhythmias (13 sources) Atrial fibrillation; Translations: [Unspecified atrial fibrillation] Onset: 03-30-2022 10-11-2022 Chronic Disorders of lipid metabolism (10 sources) Hyperlipidemia; Translations: [Hyperlipidemia, unspecified] Onset: 12-05-2018 12-05-2018 Chronic Diverticulosis and diverticulitis (7 sources) Diverticulosis of large intestine; Translations: [Diverticulosis of large intestine without perforation or abscess without bleeding] Onset: 06-24-2019 06-24-2019 Chronic E Codes: Adverse effects of medical drugs (2 sources) Amiodarone adverse reaction; Translations: [Adverse effect of other antidysrhythmic drugs, initial encounter] Onset: 04-21-2024 04-21-2024 Episodic Esophageal disorders (7 sources) Gastroesophageal reflux disease; Translations: [Gastro-esophageal reflux disease without esophagitis] 12-05-2018 Chronic Essential hypertension (14 sources) Hypertensive disorder; Translations: [Essential (primary) hypertension] Onset: 03-30-2022 12-05-2018 Chronic Hyperplasia of prostate (7 sources) Benign prostatic hyperplasia; Translations: [Benign prostatic hyperplasia without lower urinary tract symptoms] Onset: 03-30-2022 03-30-2022 Chronic Hypertension with complications and secondary hypertension (14 sources) Hypertensive heart disease without congestive heart failure; Translations: [Hypertensive heart disease without heart failure] Onset: 12-06-2018 Resolved: 12-27-2018 03-30-2022 Chronic Osteoarthritis (14 sources) Osteoarthritis; Translations: [Unspecified osteoarthritis, unspecified site] Onset: 03-25-2018 03-30-2022 Chronic Other and unspecified benign neoplasm (1 source) Personal history of colonic polyps; Translations: [Personal history of colonic polyps] Onset: 10-21-2023 Episodic Other and unspecified benign neoplasm (1 source) Polyp of colon; Translations: [Polyp of colon] Onset: 11-02-2023 Episodic Other connective tissue disease (7 sources) Hip joint prosthesis present; Translations: [Presence of right artificial hip joint] Onset: 03-30-2022 03-30-2022 Chronic Other hereditary and degenerative nervous system conditions (1 source) Impaired cognition; Translations: [Mild cognitive impairment, so stated] 04-09-2024 Chronic Other hereditary and degenerative nervous system conditions (1 source) Mild cognitive impairment, so stated; Translations: [Mild cognitive impairment of uncertain or unknown etiology] Onset: 04-09-2024 Chronic Other lower respiratory disease (7 sources) Interstitial lung disease; Translations: [Interstitial pulmonary disease, unspecified] Onset: 10-11-2022 10-11-2022 Chronic Other lower respiratory disease (1 source) Interstitial pulmonary disease, unspecified; Translations: [Interstitial pulmonary disease, unspecified] Onset: 10-11-2022 Chronic Other lower respiratory disease (1 source) Shortness of breath Onset: 04-21-2024 Episodic Other nervous system disorders (1 source) Impaired cognition 04-09-2024 Episodic Other non-traumatic joint disorders (7 sources) Arthritis of hip; Translations: [Other specified arthritis, right hip] Onset: 03-25-2018 03-25-2018 Chronic Other nutritional; endocrine; and metabolic disorders (7 sources) Obesity caused by energy imbalance; Translations: [Other obesity due to excess calories] Onset: 12-30-2019 06-15-2023 Chronic Other nutritional; endocrine; and metabolic disorders (7 sources) Body mass index 30+ - obesity; Translations: [Body mass index (BMI) 32.0-32.9, adult] Onset: 04-05-2022 04-05-2022 Chronic Residual codes; unclassified (1 source) Obstructive sleep apnea syndrome; Translations: [Obstructive sleep apnea (adult) (pediatric)] 04-21-2024 Chronic Residual codes; unclassified (1 source) Obstructive sleep apnea (adult) (pediatric); Translations: [Obstructive sleep apnea (adult) (pediatric)] Onset: 04-21-2024 Chronic Residual codes; unclassified (1 source) Sleep apnea Onset: 04-21-2024 Chronic Residual codes; unclassified (1 source) Memory loss Onset: 04-09-2024 Episodic Spondylosis; intervertebral disc disorders; other back problems (7 sources) Degeneration of cervical intervertebral disc; Translations: [Other cervical disc degeneration, unspecified cervical region] Onset: 05-04-2016 03-30-2022 Chronic Thyroid disorders (5 sources) Hypothyroidism, unspecified; Translations: [Acquired hypothyroidism] Onset: 10-03-2023 10-03-2023 Chronic Unclassified (7 sources) Normal coronary arteries; Translations: [Normal coronary arteries] Onset: 12-27-2018 12-27-2018 Unclassified (1 source) history of colon polyps Onset: 11-02-2023 Unclassified (2 sources) Other persistent atrial fibrillation; Translations: [Other persistent atrial fibrillation] Onset: 11-09-2022 Unclassified (1 source) med recheck Onset: 10-03-2023 Past or Other Problems Problem Classification Problem Date Documented Date Episodic/Chronic Anal and rectal conditions (7 sources) Anal fissure; Translations: [Anal fissure, unspecified] Onset: 07-15-2020 03-30-2022 Episodic Diabetes mellitus without complication (9 sources) Impaired fasting glycemia; Translations: [Impaired fasting glucose] Onset: 03-30-2022 03-30-2022 Episodic Mood disorders (7 sources) Mood disorders Onset: 06-14-2023 Resolved: 04-09-2024 06-14-2023 Neoplasms of unspecified nature or uncertain behavior (7 sources) Neoplasm of uncertain behavior of skin of forearm; Translations: [Neoplasm of uncertain behavior of skin] Onset: 03-30-2022 03-30-2022 Episodic Other and unspecified benign neoplasm (14 sources) History of polyp of colon; Translations: [Personal history of colonic polyps] Onset: 05-29-2019 05-29-2019 Episodic Other and unspecified benign neoplasm (7 sources) Polyp of ascending colon; Translations: [Polyp of colon] Onset: 06-24-2019 06-24-2019 Episodic Other and unspecified benign neoplasm (7 sources) Polyp of transverse colon; Translations: [Polyp of colon] Onset: 06-24-2019 06-24-2019 Episodic Other and unspecified benign neoplasm (1 source) Benign neoplasm of colon, unspecified; Translations: [Benign neoplasm of colon, unspecified] Onset: 10-03-2023 Episodic Other diseases of kidney and ureters (2 sources) Disorder of kidney and ureter, unspecified; Translations: [Disorder of kidney and ureter, unspecified] Onset: 10-03-2023 Episodic Other lower respiratory disease (7 sources) Dyspnea on exertion; Translations: [Other forms of dyspnea] Onset: 12-27-2018 12-27-2018 Episodic Other nervous system disorders (3 sources) Tremor, unspecified; Translations: [Tremor, unspecified] Onset: 06-14-2023 Episodic Other nervous system disorders (1 source) Ataxia, unspecified; Translations: [Ataxia, unspecified] Onset: 06-14-2023 Episodic Other non-traumatic joint disorders (7 sources) Arthralgia of the pelvic region and thigh; Translations: [Pain in unspecified hip] Onset: 03-30-2022 03-30-2022 Episodic Other non-traumatic joint disorders (9 sources) Pain in left knee; Translations: [Pain in joint, lower leg] Onset: 03-30-2022 03-30-2022 Episodic Other screening for suspected conditions (not mental disorders or infectious disease) (9 sources) Cardiovascular stress test abnormal; Translations: [Abnormal result of other cardiovascular function study] Onset: 06-14-2023 12-09-2018 Episodic Other skin disorders (7 sources) Actinic keratosis; Translations: [Actinic keratosis] Onset: 11-29-2015 03-30-2022 Episodic Residual codes; unclassified (1 source) Other amnesia; Translations: [Other amnesia] Onset: 10-03-2023 Episodic Unclassified (7 sources) Onset: 02-05-2023 02-05-2023 Results Test Name Value Interpretation Reference Range Facility Telephoneon 04-18-2024 Telephone [id number] Carrol Vega 1955 M [facility] Provider Department Center 04/18/2024 [facility] [place] [facility] Family History Problem Relation Age of Onset Heart attack Mother Heart attack Brother Family Status - Relation Status Age at Mother Brother Reason for Visit and Comments: 3week post ablation f/u [Other] Normal [facility] Telephoneon 04-09-2024 Telephone [id number] Carrol Vega [address] [facility] Provider Department Center 04/09/2024 [facility] [place] [facility] Family History Problem Relation Age of Onset Heart attack Mother Heart attack Brother Family Status - Relation Status Age at Mother Brother Reason for Visit and Comments: f/u post ablation [Other] [facility] Follow-Upon 04-02-2024 Follow-Up [id number] Carrol Vega 1955 M [facility] Provider Department Center 04/02/2024 RAMONA AYALA LALY [facility] Family History Problem Relation Age of Onset Heart attack Mother Heart attack Brother Family Status - Relation Status Age at Mother Brother Level of Service:68811 SD OFFICE/OUTPATIENT ESTABLISHED MOD MDM 30 MIN Reason for Visit and Comments: Atrial Fibrillation [80] Hypertension [031631] [facility] 36on 03-31-2024 36 Regarding lab results from 03/31/2024: PENNY Gomez, LORNE CBC good- Hgb stable Ask him how his b/p is at home and has he resumed hid B/P meds? Doing OK? LM on his VM with above message from Nany. Asked him to call me back - or if he's doing ok he can just wait until his follow up on 04/02 with Tangela. Normal [facility] 30on 03-28-2024 30 The patient is Moderately Stable - Low risk of patient condition declining or worsening The patient's goals for the shift include comfort The clinical goals for the shift include VSS, safety Normal [facility] 30 The patient is Moderately Stable - Low risk of patient condition declining or worsening The patient's goals for the shift include comfort The clinical goals for the shift include VSS Normal [facility] CBC WITH AUTO DIFFERENTIALon 03-28-2024 Basophils (Bld) [#/Vol] 0.04 10*3/uL Normal 0.00-0.20 [facility] Comment on above: Performed By: #### L [id number] ####[facility] (BEAKER)[address] [place] [address] Basophils/100 WBC (Bld) 0.4 % Normal 0.0-1.0 [facility] Comment on above: Performed By: #### L [id number] ####[facility] (BEAKER)[address] [place] [address] Eosinophils (Bld) [#/Vol] 0.01 10*3/uL Normal 0.00-0.50 [facility] Comment on above: Performed By: #### L [id number] ####[facility] (BEAKER)[address] [place] [address] Eosinophils/100 WBC (Bld) 0.1 % Normal 0.0-6.0 [facility] Comment on above: Performed By: #### L [id number] ####[facility] (BEAKER)[address] [address] Erythrocyte distribution width (RBC) [Ratio] 14.4 % Normal 11.5-15.0 [facility] Comment on above: Performed By: #### L [id number] ####[facility] (BEAKER)[address] [place] [address] ERYTHROCYTE MEAN CORPUSCULAR HEMOGLOBIN CONCENTRATION (G/DL) BY AUTOMATED 34.3 g/dL Normal 32.0-35.0 [facility] Comment on above: Performed By: #### L [id number] ####[facility] ([facility])[address] [place] [address] Hematocrit (Bld) [Volume fraction] 39.4 % Normal 39.0-55.0 [facility] Comment on above: Performed By: #### L [id number] ####[facility] ([facility])[address] [place] [address] Hemoglobin (Bld) [Mass/Vol] 13.5 g/dL Normal 13.0-17.0 [facility] Comment on above: Performed By: #### L [id number] ####[facility] (BEAKER)[address] [place] [address] Immature granulocytes (Bld) [#/Vol] 0.04 10*3/uL Normal 0.00-0.20 [facility] Comment on above: Performed By: #### L [id number] ####[facility] (BEAKER)[address] [place] [address] Immature granulocytes/100 WBC (Bld) 0.4 % Normal 0.0-1.0 [facility] Comment on above: Performed By: #### L [id number] ####[facility] (BEAKER)[address] [place] [address] Lymphocytes (Bld) [#/Vol] 0.96 10*3/uL Low 1.20-4.00 [facility] Comment on above: Performed By: #### L [id number] ####[facility] (BEAKER)[address] [place] [address] Lymphocytes/100 WBC (Bld) 10.7 % Low 20.0-45.0 [facility] Comment on above: Performed By: #### L [id number] ####[facility] (BEAKER)[address] [place] [address] MCH (RBC) [Entitic mass] 29.7 pg Normal 27.0-33.0 [facility] Comment on above: Performed By: #### L [id number] ####[facility] (BEAKER)[address] [place] [address] MCV (RBC) [Entitic vol] 86.6 fL Normal 82.0-98.0 [facility] Comment on above: Performed By: #### L [id number] ####[facility] ([facility])[address] [place] [address] Monocytes (Bld) [#/Vol] 1.00 10*3/uL Normal 0.10-1.00 [facility] Comment on above: Performed By: #### L [id number] ####[facility] ([facility])[address] [place] [address] Monocytes/100 WBC (Bld) 11.1 % Normal 5.0-12.0 [facility] Comment on above: Performed By: #### L [id number] ####[facility] ([facility])[address] [place] [address] Neutrophils (Bld) [#/Vol] 6.94 10*3/uL Normal 1.60-7.60 [facility] Comment on above: Performed By: #### L [id number] ####[facility] ([facility])[address] [place] [address] Neutrophils/100 WBC (Bld) 77.3 % High 40.0-72.0 [facility] Comment on above: Performed By: #### L [id number] ####[facility] ([facility])[address] [place] [address] NRBC (PER 100 WBCS) BY AUTOMATED COUNT 0.0 % Normal 0 [facility] Comment on above: Performed By: #### L [id number] ####[facility] ([facility])[address] [place] [address] PLATELETS (10*3/UL) IN BLOOD AUTOMATED COUNT 170 10*3/uL Normal 150-400 [facility] Comment on above: Performed By: #### L [id number] ####[facility] (BEAKER)[address] [place] [address] RBC (Bld) [#/Vol] 4.55 10*6/uL Normal 4.20-5.70 [facility] Comment on above: Performed By: #### L [id number] ####[facility] (BEAKER)[address] [place] [address] WBC (Bld) [#/Vol] 8.99 10*3/uL Normal 4.00-10.60 [facility] Comment on above: Performed By: #### L [id number] ####[facility] (BEAKER)[address] [place] [address] CT [facility]EN PELVIS WO IV CONTRAST [...] this report. Electronically signed: Maricruz Bryant. Not Ricardodtakiko Invalid Interpretation Code [facility] DSon 03-28-2024 DS Admission Admitted 03/27/2024 for Paroxysmal atrial fibrillation Discharge Diagnosis Paroxysmal atrial fibrillation s/p ablation 03/27/24 ([facility] Hypotension Hypertension Discharge Disposition Home or Self Care () Discharge Medications Your medication list START taking these medications Instructions Last Dose Given Next Dose Due famotidine 20 mg tablet Commonly known as: Pepcid Take 1 tablet (20 mg) by mouth two times daily. pantoprazole 40 mg EC tablet Commonly known as: ProtoNix Take 1 tablet (40 mg) by mouth before breakfast. Do not crush, chew, or split. sucralfate 1 gram tablet Commonly known as: Carafate Take 1 tablet (1 g) by mouth before breakfast, before lunch, and before evening meal. CHANGE how you take these medications Instructions Last Dose Given Next Dose Due amiodarone 200 mg tablet Commonly known as: Pacerone What changed: when to take this Take 1 tablet (200 mg) by mouth once daily as directed. CONTINUE taking these medications Instructions Last Dose Given Next Dose Due albuterol 90 mcg/actuation inhaler apixaban 5 mg tablet Commonly known as: Eliquis atorvastatin 80 mg tablet Commonly known as: Lipitor bisoproloL-hydroCHLO ROthiazide 10-6.25 mg tablet Commonly known as: Ziac docusate sodium 100 mg capsule Commonly known as: Colace esomeprazole [address] capsule Commonly known as: NexIUM fluticasone propion-salmeteroL 250-50 mcg/dose diskus inhaler Commonly known as: Advair Diskus ketck-xj-3-dha-epa-p hospho-ast 1,000-230-60 mg capsule levocetirizine 5 mg tablet Commonly known as: Xyzal levothyroxine 25 mcg tablet Commonly known as: Synthroid, Levoxyl lisinopril 10 mg tablet meclizine 25 mg tablet Commonly known as: Antivert multivitamin 9 mg iron-400 mcg tablet Commonly known as: Theragran-M Where to Get Your Medications These medications were sent to [facility] - [place], [place] - [address] [facility] [place] [address] [facility] [place] [address], [facility] [address] famotidine 20 mg tablet pantoprazole 40 mg EC tablet sucralfate 1 gram tablet Activity No strenuous activity, heavy lifting greater than 10 lbs for the next 3-4 days. Return to normal activity over the next week. No driving for 24 hours. Showering instructions: May shower this afternoon. Diet Continue on the same type of diet and foods as you were eating before your admission. Drink plenty of water. Allergies Meperidine and Morphine Hospital Course Carrol Vega is a 68 year old with past medical history of HTN, asthma, prediabetes, A-fib taking Eliquis 5 mg BID obesity, abnormal stress test which led to cardiac catheterization 12/18/2018 which showed normal coronary arteries, minimal luminal irregularities were noted. Echo on 11/29/2022 which showed normal LVEF, normal LV size, LA and RA mildly dilated, no significant valvular abnormalities. He was scheduled for TAMARA/cardioversion which was canceled due him converting to SR. He is currently on Amio and DOAC and tolerating well. He presents for Afib ablation with intent to come off Amiodarone. Patient tolerated ablation procedure well. Was found to be in sinus rhythm and TAMARA was deferred upon presentation. Post procedure patient's catheter access site had some residual discharge, and patient was kept overnight for observation. On exam today, patient felt well. Denied any chest pain, SOB, dizziness/lightheade dness. Stated that his groin access sites were not causing him any pain and were not tender. Patient's blood pressure at home is usually in the 130's, but today blood pressure was low (90's-100's systolic). Hemoglobin was dropped slightly from 15 at home to 13.[address] abdomen was ordered to r/o any potential retroperitoneal bleed, and H&H was repeated. CT showed: VESSELS: No abdominal aortic aneurysm [AAA00]. Scattered aortic atherosclerosis. ABDOMINAL/PELVIC WALL: Mild fat stranding and subcutaneous emphysema along the right groin, likely iatrogenic and secondary to reported same day catheter ablation. No drainable abscess. No hematoma. Moderate-sized bilateral fat-containing inguinal hernias. Small fat-containing umbilical hernia. IMPRESSION: 1.No explanation for patient's reported symptoms. 2.Post procedural changes of the right groin without evidence of drainable abscess or hematoma. H&H: Hemoglobin mildly increased to 13.9 from 13.5 this morning. Will discharge patient home today with follow up in clinic next week and will need repeat H&H. Blood pressure at discharge was 115/64. Pertinent Physical Exam At Time of Discharge Physical Exam HENT: Head: Normocephalic. Nose: Nose normal. Mouth/Throat: Mouth: Mucous membranes are moist. Pharynx: Oropharynx is clear. Eyes: Pupils: Pupils are equal, round, and reactive to light. Cardiovascular: Rate and Rhythm: Normal rate and regular rhythm. Pulses: Nor (more content not included)... Normal [facility] HEMOGLOBIN AND HEMATOCRIT, B LOEverett 03-28-2024 Hematocrit (Bld) [Volume fraction] 40.8 % Normal 39.0-55.0 [facility] Comment on above: Performed By: #### L [id number] #### [facility] ([facility]) [address] [place] [address] Hemoglobin (Bld) [Mass/Vol] 13.9 g/dL Normal 13.0-17.0 [facility] Comment on above: Performed By: #### L [id number] #### [facility] ([facility]) [address] [place] [address] 30on 03-27-2024 30 Problem: Pain - Adult [...] make progress toward the following goals. Normal [facility] 30 The patient is Moderately Stable - Low risk of patient condition declining or worsening The patient's goals for the shift include The clinical goals for the shift include comfort Over the shift, the patient did not make progress toward the following goals. Normal [facility] LUNASon 03-27-2024 ANES Attestation signed by Dwight Cortez MD at 03/27/2024 7:35 AM I reviewed and agree with the history & physical examination by Dr. Del Cid. I examined and interviewed the patient. Patient: Carrol Vega Procedure Information Date/Time: 03/27/24 0800 Procedure: Ablation a-fib paroxysmal - CALL MIKE WHEN APPT MADE Location: [facility] / [facility] ([facility]) Providers: Anurag Cruz MD [...] discussed with attending. Additional Equipment [facility]s [facility] Electrophysiology Consult Note Reason for visit: Afib [...] puff in the morning and at bedtime. mgqii-ji-1-dha-epa-p hospho-ast 1,000-230-60 mg capsule Take 1 capsule by mouth in the morning. levocetirizine (Xyzal) 5 mg tablet Take 5 mg by mouth in the evening. lisinopril 10 mg tablet Take 10 (more content not included)... Normal [facility] POCT GLUCOSE METER UNSOLICIT ED RESULTSon 03-27-2024 Glucose [Mass/Vol] 109 mg/dL High 70-105 [facility] Comment on above: Order Comment: Waive d Testing in the ED is performed under the ED CLIA certificate #[id number]. Result Comment: acas til5 Performed By: #### L [id number] #### [facility] ([facility]) [address] [place] [address] PROTIME-INRon 03-27-2024 INR IN PPP BY COAGULATION ASSAY 1.11 High 0.90-1.10 [facility] Comment on above: Result Comment: ACCC [...] CHEST 1995;108:231S-246S. Performed By: #### L [id number] ####[facility] ([facility])[address] [place] [address] PROTHROMBIN TIME (PT) IN PPP BY COAGULATION ASSAY 14.3 Seconds Normal 12.3-14.8 [facility] Comment on above: Performed By: #### L [id number] ####[facility] ([facility])[address] [place] [address] Prep for Procedureon 024 Prep for Procedure [id number] Juan Vegamague Del Castillo 1955 [facility] Department [place] 03/27/2024 1987-SOFIA CISNEROS [facility] [place] Heart[facility]AS Family History Problem Relation Age of Onset Heart attack Mother Heart attack Brother Family Status - Relation Status Age at Mother Brother Normal [facility] Abstracton 02-28-2024 Abstract [id number] GaryCarrol W 1955 [facility] Department [place] 02/28/2024 241-ANURAG CRUZ [facility] CARD [place] Family History Problem Relation Age of Onset Heart attack Mother Heart attack Brother Family Status - Relation Status Age at Mother Brother Normal [facility] Orders Onlyon 02-07-2024 Orders Only [id number] GaryCarrol 1955 M Date Provider Department Center 02/07/2024 [facility] Family History Problem Relation Age of Onset Heart attack Mother Heart attack Brother Family Status - Relation Status Age at Mother Brother Normal [facility] Prep for Procedureon 024 Prep for Procedure [id number] Carrol Vega 1955 Date Provider Department Center 02/07/2024 1987-SOFIA CISNEROS [facility] [place] HeartVAS Family History Problem Relation Age of Onset Heart attack Mother Heart attack Brother Family Status - Relation Status Age at Mother Brother Normal [facility] Office Visiton 02-05-2024 Follow-up visit [id number] Carrol Vega 1955 [facility] Provider Department Center 02/05/2024 E[facility] Family History Problem Relation Age of Onset Heart attack Mother Heart attack Brother Family Status - Relation Status Age at Mother Brother Level of Service:14092 SD OFFICE/OUTPATIENT ESTABLISHED HIGH MDM 40 MIN Normal [facility] Orders Onlyon 02-05-2024 Orders Only [id number] Carrol Vega 1955 Date Provider Department Center 02/05/2024 [facility] Family History Problem Relation Age of Onset Heart attack Mother Heart attack Brother Family Status - Relation Status Age at Mother Brother Normal [facility] Orders Onlyon 01-31-2024 Orders Only [id number] Carrol Vega 1955 Date Provider Department Center 01/31/2024 [facility] Family History Problem Relation Age of Onset Heart attack Mother Heart attack Brother Family Status - Relation Status Age at Mother Brother Normal [facility] Surgical Pathologyon 024 Surgical Pathology Normal [facility] Comment on above: Result Comment: [facility] [address] [place] [address] Surgical Pathology Consultation Patient Name:CARROL VEGA:1955 (Age: 68)Gender:MTaken:4Reported:11/07/2023hysician(s):Desmond Tate MD ([phone])Copy To: Rec. #:[id number]: #[id number] Final Pathologic Diagnosis 1. Ascending colon polyps x2: Tubular adenomas. 2. Colon polyp at 110 cm: Tubular adenoma. 3. Colon polyp: Tubular adenoma. 4. Colon polyp at 80cm: Tubular adenoma fragments. Report Electronically Signed Out st/11/07/2023Vianey Seals MD Interpretation performed at [facility], [address] [place], [address], License number: [id number]. Clinical History History of colon polyps. 1. Snared polyps x2. 2. Snared a polyp at 110cm. 3. Snared a polyp. 4. Snared a polyp at 80cm. Gross Description 1. Received in formalin labeled [facility], ascending colon polyp are light blas soft tissue fragments, 0.8 x 0.3 x 0.2 cm in aggregate. The specimen is filtered and entirely submitted in a single cassette. (1, ns, [id number],m3) DM. 2. .Received in formalin labeled [facility], polyp at 110 cm is a light blas soft tissue bit, 0.4 cm. The specimen is filtered and entirely submitted in a single cassette. (1, ns, [id number],m3) DM. 3. Received in formalin labeled [facility], polyp at 85 cm is a light blas soft tissue bit, 0.6 cm. The specimen is filtered and entirely submitted in a single cassette. (1, ns, [id number],m3) DM. 4. Received in formalin labeled [facility], polyp at 80 cm are two light blas soft tissue bits, 0.2 and 0.3 cm. The specimen is filtered and entirely submitted in a single cassette. (1, ns, [id number],m3) DM. dm/11/03/2023GP Specimen(s) Received 1: Ascending colon polyps x2 2: Colon polyp at 110 cm 3: Colon polyp 4: Colon polyp at 80cm Fee Codes(s): 1; 44004 2; 83753 3; 73210 4; 64690 BASIC METABOLIC PANLon 10-02 Anion gap [Moles/Vol] 8 mmol/L Normal 5-15 [facility] Comment on above: Performed By: #### Jessica LUGO BMP #### [facility] ([id number]) [address], [address] [place] [address] Calcium [Mass/Vol] 9.4 mg/dL Normal 8.5-10.5 [facility] Comment on above: Performed By: #### Jessica LUGO BMP #### [facility] ([id number]) [address], [address] [place] [address] Chloride [Moles/Vol] 109 mmol/L Normal 98-109 [facility] Comment on above: Performed By: #### Jessica LUGO, BMP #### [facility] ([id number]) [address], [address] [place] [address] CO2 [Moles/Vol] 26 mmol/L Normal 22-32 [facility] Comment on above: Performed By: #### Jessica LUGO BMP #### [facility] ([id number]) [address], [address] [place] [address] Creatinine [Mass/Vol] 1.48 mg/dL High 0.60-1.30 [facility] Comment on above: Result Comment: METH OD TRACEABLE TO IDMS STANDARD Performed By: #### Jessica LUGO, BMP #### [facility] ([id number]) [address], [address] [place] [address] GFR/1.73 sq M.predicted among non-blacks MDRD (S/P/Bld) [Vol rate/Area] 51 mL/min/{1.73_m2} Low >59 [facility] Comment on above: Result Comment: Reported eGFR is based on the CKD-EPI 2020 equation that does not use a race coefficient. Performed By: #### Jessica LUGO, BMP #### [facility] ([id number]) [address], [address] [place] [address] Glucose [Mass/Vol] 110 mg/dL High 65-99 [facility] Comment on above: Performed By: #### T BRITTNEY BMP #### [facility] ([id number]) [address], [address] [place] [address] Potassium [Moles/Vol] 3.8 mmol/L Normal 3.5-5.0 [facility] Comment on above: Performed By: #### Jessica LUGO BMP #### [facility] ([id number]) [address], [address] [place] [address] Sodium [Moles/Vol] 143 mmol/L Normal 134-146 [facility] Comment on above: Performed By: #### MIKE SON #### [facility] ([id number]) [address], [address] [place] [address] Urea nitrogen [Mass/Vol] 20 mg/dL Normal 5-27 [facility] Comment on above: Performed By: #### Jessica LUGO BMP #### [facility] ([id number]) [address], [address] [place] [address] THYROID PROFILEon 10-03-2023 Free T4 [Mass/Vol] 1.12 ng/dL Normal 0.61-1.60 [facility] Comment on above: Performed By: #### T BRITTNEY BMP #### [facility] ([id number]) [address], [address] [place] [address] TSH 4.67 uIU/mL Normal 0.49-4.67 [facility] Comment on above: Performed By: #### T BRITTNEY BMP #### [facility] ([id number]) [address], [address] [place] [address] AMIODARONE SERUMon 3 AMIODARONE 0.6 ug/mL Low 1.5-2.5 [facility] Comment on above: Result Comment: NOTE Reference ranges and high/low indicator flags are provided as general guidelines only. The treating physician must determine appropriate target levels/dosing based on the specific clinical situation. This test was developed and its performance characteristics determined by [facility] [place] ([facility]). It has not been cleared or approved by the FDA. [facility] is regulated under CLIA as qualified to perform high-complexity testing. This test is used for clinical purposes. It should not be regarded as investigational or for research. Performed By: #### A SYLVIA #### [facility] ([id number]) [address] [place] [address] DESETHYLAMIODARONE 0.5 ug/mL Low 1.5-2.5 [facility] Comment on above: Result Comment: NOTE Reference ranges and high/low indicator flags are provided as general guidelines only. The treating physician must determine appropriate target levels/dosing based on the specific clinical situation. Test Performed By: [facility] [address] [place] [address] [employer]: Harman Nicole III, M.D. [place] #[id number] Performed By: #### A SYLVIA #### [facility] ([id number]) [address] [place] [address] COMPLETE BLOOD COUNTon 06-14 Erythrocyte distribution width (RBC) [Ratio] 14.8 % Normal 11.5-15.0 [facility] Comment on above: Performed By: #### 2 4331-1, 3016-3, CMP, CBC #### [facility] ([id number]) [address] [facility] [facility] [place] [address] Hematocrit (Bld) [Volume fraction] 41.0 % Normal 39-49 [facility] Comment on above: Performed By: #### 2 4331-1, 3016-3, CMP, CBC #### [facility] ([id number]) [address], [address] [place] [address] Hemoglobin (Bld) [Mass/Vol] 14.0 g/dL Normal 13.0-17.0 [facility] Comment on above: Performed By: #### 2 4331-1, 3015-3, CMP, CBC #### [facility] ([id number]) [address], [facility] [address] [place] [address] MCH (RBC) [Entitic mass] 27.0 pg Normal 27-34 [facility] Comment on above: Performed By: #### 2 4331-1, 3015-3, CMP, CBC #### [facility] ([id number]) [address], [facility] [address] [place] [address] MCHC (RBC) [Mass/Vol] 34.1 g/dL Normal 32-36 [facility] Comment on above: Performed By: #### 2 4331-1, 3015-3, CMP, CBC #### [facility] ([id number]) [address], [facility] [address] [place] [address] MCV (RBC) [Entitic vol] 79 fL Low 80-100 [facility] Comment on above: Performed By: #### 2 4331-1, 3015-3, CMP, CBC #### [facility] ([id number]) [address], [facility] [address] [place] [address] Platelet mean volume (Bld) [Entitic vol] 7.6 fL Normal 7-12 [facility] Comment on above: Performed By: #### 2 4331-1, 3015-3, CMP, CBC #### [facility] ([id number]) [address], [facility] [address] [place] [address] Platelets (Bld) [#/Vol] 203 10*3/uL Normal 150-450 [facility] Comment on above: Performed By: #### 2 4331-1, 3015-3, CMP, CBC #### [facility] ([id number]) [address], [address] [place] [address] RBC COUNT 5.18 X10E12/L Normal 4.10-5.70 [facility] Comment on above: Performed By: #### 2 4331-1, 3016-3, CMP, CBC #### [facility] ([id number]) [address], [facility] [address] [place] [address] WBC (Bld) [#/Vol] 5.6 10*3/uL Normal 4.0-11.0 [facility] Comment on above: Performed By: #### 2 4331-1, 3016-3, CMP, CBC #### [facility] ([id number]) [address], [address] [place] [address] COMPREHENSIVE METABOLIC PANE Benson 06-14-2023 Albumin [Mass/Vol] 4.5 g/dL Normal 3.2-5.3 [facility] Comment on above: Performed By: #### 2 4331-1, 3016-3, CMP, CBC #### [facility] ([id number]) [address], [address] [place] [address] ALP [Catalytic activity/Vol] 55 U/L Normal 39-130 [facility] Comment on above: Performed By: #### 2 4331-1, 3016-3, CMP, CBC #### [facility] ([id number]) [address], [address] [place] [address] ALT [Catalytic activity/Vol] 26 U/L Normal 0-40 [facility] Comment on above: Performed By: #### 2 4331-1, 3016-3, CMP, CBC #### [facility] ([id number]) [address], [address] [place] [address] Anion gap [Moles/Vol] 12 mmol/L Normal 5-15 [facility] Comment on above: Performed By: #### 2 4331-1, 3016-3, CMP, CBC #### [facility] ([id number]) [address], [address] [place] [address] AST [Catalytic activity/Vol] 24 U/L Normal 0-41 [facility] Comment on above: Performed By: #### 2 4331-1, 3016-3, CMP, CBC #### [facility] ([id number]) [address], [address] [place] [address] Bilirubin [Mass/Vol] 0.7 mg/dL Normal 0.3-1.2 [facility] Comment on above: Performed By: #### 2 4331-1, 3015-3, CMP, CBC #### [facility] ([id number]) [address], [address] [place] [address] Calcium [Mass/Vol] 9.8 mg/dL Normal 8.5-10.5 [facility] Comment on above: Performed By: #### 2 4331-1, 6-3, CMP, CBC #### [facility] ([id number]) [address], [address] [place] [address] Chloride [Moles/Vol] 107 mmol/L Normal 98-109 [facility] Comment on above: Performed By: #### 2 4331-1, 6-3, CMP, CBC #### [facility] ([id number]) [address], [address] [place] [address] CO2 [Moles/Vol] 24 mmol/L Normal 22-32 [facility] Comment on above: Performed By: #### 2 4331-1, 3016-3, CMP, CBC #### [facility] ([id number]) [address], [address] [place] [address] Creatinine [Mass/Vol] 1.25 mg/dL Normal 0.60-1.30 [facility] Comment on above: Result Comment: METH OD TRACEABLE TO IDMS STANDARD Performed By: #### 2 4331-1, 3015-3, CMP, CBC #### [facility] ([id number]) [address], [address] [place] [address] GFR/1.73 sq M.predicted among non-blacks MDRD (S/P/Bld) [Vol rate/Area] 63 mL/min/{1.73_m2} Normal >59 [facility] Comment on above: Result Comment: Reported eGFR is based on the CKD-EPI 2020 equation that does not use a race coefficient. Performed By: #### 2 4331-1, 3015-3, CMP, CBC #### [facility] ([id number]) [address], [address] [place] [address] Glucose [Mass/Vol] 87 mg/dL Normal 65-99 [facility] Comment on above: Performed By: #### 2 4331-1, 3015-3, CMP, CBC #### [facility] ([id number]) [address], [address] [place] [address] Potassium [Moles/Vol] 4.1 mmol/L Normal 3.5-5.0 [facility] Comment on above: Performed By: #### 2 4331-1, 3015-3, CMP, CBC #### [facility] ([id number]) [address], [address] [place] [address] Protein [Mass/Vol] 7.6 g/dL Normal 6.0-8.0 [facility] Comment on above: Performed By: #### 2 4331-1, 3015-3, CMP, CBC #### [facility] ([id number]) [address], [address] [place] [address] Sodium [Moles/Vol] 143 mmol/L Normal 134-146 [facility] Comment on above: Performed By: #### 2 4331-1, 3015-3, CMP, CBC #### [facility] ([id number]) [address], [address] [place] [address] Urea nitrogen [Mass/Vol] 17 mg/dL Normal 5-27 [facility] Comment on above: Performed By: #### 2 4331-1, 3016-3, CMP, CBC #### [facility] ([id number]) [address], [address] [place] [address] HGB A1C (GLYCO-HGB)on 2022 Glucose [Mass/Vol] 117 mg/dL Normal [facility] Comment on above: Performed By: #### 2 4331-1, 6-3, CMP, CBC #### [facility] ([id number]) [address], [address] [place] [address] HbA1c (Bld) [Mass fraction] 5.7 % High 4.4-5.6 [facility] Comment on above: Result Comment: NOTE ADA Guidelines Result HgbA1c Normal : less than 5.7 % Prediabetes : 5.7 % to 6.4 % Diabetes : > 6.4 % Use with caution in patients with abnormal hemoglobin variants as the half-life of red blood cells and in vivo glycation rates are affected. Performed By: #### 2 4331-1, 3016-3, CMP, CBC #### [facility] ([id number]) [address], [address] [place] [address] Lipid 1996 panelon 3 Cholesterol [Mass/Vol] 151 mg/dL Normal 150-200 [facility] Comment on above: Performed By: #### 2 4331-1, 3016-3, CMP, CBC #### [facility] ([id number]) [address] [place] [address] Cholesterol in HDL [Mass/Vol] 47 mg/dL Normal >39 [facility] Comment on above: Result Comment: HDL <40 mg/dL - High Risk HDL > or = 40mg/dL- Desirable HDL >60 mg/dL - Negative Risk Performed By: #### 2 4331-1, 3016-3, CMP, CBC #### [facility] ([id number]) [address] [place] [address] Cholesterol in LDL [Mass/Vol] 72 mg/dL Normal <130 [facility] Comment on above: Result Comment: LDL <100 mg/dL - Desirable LDL >160 mg/dL - High Risk Performed By: #### 2 4331-1, 6-3, CMP, CBC #### [facility] ([id number]) [address], [address] [place] [address] Cholesterol in VLDL [Mass/Vol] 32 mg/dL High 0-30 [facility] Comment on above: Performed By: #### 2 4331-1, 6-3, CMP, CBC #### [facility] ([id number]) [address], [address] [place] [address] CHOLESTEROL:HDL 3.2 Normal 1.0-5.0 [facility] Comment on above: Performed By: #### 2 4331-1, 3016-3, CMP, CBC #### [facility] ([id number]) [address], [address] [place] [address] Triglyceride [Mass/Vol] 162 mg/dL High 27-150 [facility] Comment on above: Performed By: #### 2 4331-1, 6-3, CMP, CBC #### [facility] ([id number]) [address], [address] [place] [address] TSH Qnon 06-14-2023 TSH 5.65 uIU/mL High 0.49-4.67 [facility] Comment on above: Performed By: #### 2 4331-1, 3016-3, CMP, CBC #### [facility] ([id number]) [address], [address] [place] [address] Office Visiton 05-29-2023 Follow-up visit [id number] Carrol Vega 1955 M Date Provider Department Center 05/29/2023 ANURAG BURRELL [facility] Family History Problem Relation Age of Onset Heart attack Mother Heart attack Brother Family Status - Relation Status Age at Mother Brother Level of Service:73242 [place] OFFICE/OUTPATIENT NEW MODERATE MDM 45-59 MINUTES Normal [facility] COMPREHENSIVE METABOLIC PANE [place] 08-25-2021 Albumin [Mass/Vol] 4.4 g/dL Normal 3.6-5.1 [facility] Comment on above: Performed By: #### 7 600, 18096 #### [facility] [place] [address] Millinery Teacher: Jairo Aceves MD Albumin/Globulin [Mass ratio] 1.9 {ratio} Normal 1.0-2.5 [facility] Comment on above: Performed By: #### 7 600, 53011 #### [facility] [place] [address] Millinery Teacher: Jairo Aceves MD ALP [Catalytic activity/Vol] 76 U/L Normal 35-144 [facility] Comment on above: Performed By: #### 7 600, 69119 #### [facility] [place] [address] Millinery Teacher: Jairo Aceves MD ALT [Catalytic activity/Vol] 23 U/L Normal 9-46 [facility] Comment on above: Performed By: #### 7 600, 77746 #### [place] [address] Millinery Teacher: Jairo Aceves MD AST [Catalytic activity/Vol] 19 U/L Normal 10-35 [facility] Comment on above: Performed By: #### 7 600, 55852 #### [facility] [address], [address] [place] [address] Millinery Teacher: Jairo Aceves MD Bilirubin [Mass/Vol] 0.6 mg/dL Normal 0.2-1.2 [facility] Comment on above: Performed By: #### 7 600, 30411 #### [facility] of [address], [address] [place] [address] Millinery Teacher: Jairo Aceves MD BUN/CREATININE RATIO NOT APPLICABLE Normal 6-22 [facility] Comment on above: Performed By: #### 7 600, 34486 #### [facility] [place] [address] Millinery Teacher: Jairo Aceves MD Calcium [Mass/Vol] 9.6 mg/dL Normal 8.6-10.3 [facility] Comment on above: Performed By: #### 7 600, 35843 #### [facility] of [place] [address] Millinery Teacher: Jairo Aceves MD Chloride [Moles/Vol] 106 mmol/L Normal 98-110 [facility] Comment on above: Performed By: #### 7 600, 46943 #### [facility] [place] [address] Millinery Teacher: Jairo Aceves MD CO2 [Moles/Vol] 29 mmol/L Normal 20-32 [facility] Comment on above: Performed By: #### 7 600, 88149 #### [facility] [place] [address] Millinery Teacher: Jairo Aceves MD Creatinine [Mass/Vol] 1.06 mg/dL Normal 0.70-1.[address] [facility] Comment on above: Result Comment: For patients >49 years of age, the reference limit for Creatinine is approximately 13% higher for people identified as -Somali. Performed By: #### 7 600, 01910 #### [facility] [address], [address] [place] [address] Millinery Teacher: Jairo Aceves MD eGFR NON-AFR. GIBRALTARIAN 73 mL/min/1.73m2 Normal > OR = 60 [facility] Comment on above: Performed By: #### 7 600, 08216 #### [facility] [address], [address] [place] [address] Millinery Teacher: Jairo Aceves MD GFR/1.73 sq M.predicted among blacks MDRD (S/P/Bld) [Vol rate/Area] 84 mL/min/{1.73_m2} Normal > OR = 60 [facility] Comment on above: Performed By: #### 7 600, 59225 #### [facility] [address], [address] [place] [address] Millinery Teacher: Jairo Aceves MD Globulin (S) [Mass/Vol] 2.3 g/dL Normal 1.9-3.7 [facility] Comment on above: Performed By: #### 7 600, 49502 #### [facility] [place] [address] Millinery Teacher: Jairo Aceves MD Glucose [Mass/Vol] 115 mg/dL High 65-99 [facility] Comment on above: Result Comment: Fasting reference interval For someone without known diabetes, a glucose value between 100 and 125 mg/dL is consistent with prediabetes and should be confirmed with a follow-up test. Performed By: #### 7 600, 21926 #### [facility] [address], [address] [place] [address] Millinery Teacher: Jairo Aceves MD Potassium [Moles/Vol] 4.0 mmol/L Normal 3.5-5.[address] [facility] Comment on above: Performed By: #### 7 600, 30834 #### [facility] [address], [address] [place] [address] Millinery Teacher: Jairo Aceves MD Protein [Mass/Vol] 6.7 g/dL Normal 6.1-8.1 [facility] Comment on above: Performed By: #### 7 600, 69391 #### [facility] [place] [address] Millinery Teacher: Jairo Aceves MD Sodium [Moles/Vol] 142 mmol/L Normal 135-146 [facility] Comment on above: Performed By: #### 7 600, 96270 #### [facility] [place] [address] Millinery Teacher: Jairo Aceves MD Urea nitrogen [Mass/Vol] 16 mg/dL Normal 7-25 [facility] Comment on above: Performed By: #### 7 600, 42772 #### [facility] [place] [address] Millinery Teacher: Jairo Aceves MD LIPID PANEL, [facility] 0 Cholesterol [Mass/Vol] 156 mg/dL Normal <200 [facility] Comment on above: Order Comment: FASTI NG:YES FASTING: YES Performed By: #### 7 600, 16811 #### [facility] [place] [address] Millinery Teacher: Jairo Aceves MD Cholesterol in HDL [Mass/Vol] 43 mg/dL Normal > OR = 40 [facility] Comment on above: Order Comment: FASTI NG:YES FASTING: YES Performed By: #### 7 600, 41557 #### [facility] [place] [address] Millinery Teacher: Jairo Aceves MD Cholesterol in LDL [Mass/Vol] [...] LDL-C. Bandar KHANNA et al. LENORA. 2013;310(19): 0901-8670 ([email or web address]) Performed By: #### 7 600, 40346 #### [facility] [address], [address] [place] [address] Millinery Teacher: Jairo Aceves MD Cholesterol.total/Chol esterol in HDL [Mass ratio] 3.6 {ratio} Normal <5.0 [facility] Comment on above: Order Comment: FASTI NG:YES FASTING: YES Performed By: #### 7 600, 36716 #### [facility] [place] [address] Millinery Teacher: Jairo Aceves MD NON HDL CHOLESTEROL 113 mg/dL (calc) Normal <130 [facility] Comment on above: Order Comment: FASTI NG:YES FASTING: YES Result Comment: For patients with diabetes plus 1 major ASCVD risk factor, treating to a non-HDL-C goal of <100 mg/dL (LDL-C of <70 mg/dL) is considered a therapeutic option. Performed By: #### 7 600, 41153 #### [facility] [place] [address] Millinery Teacher: Jairo cAeves MD Triglyceride [Mass/Vol] 197 mg/dL High <150 [facility] Comment on above: Order Comment: FASTI NG:YES FASTING: YES Performed By: #### 7 600, 87640 #### [facility] [place] [address] Millinery Teacher: Jairo Aceves MD BASIC METABOLIC PANELon 01-23 BUN/CREATININE RATIO NOT APPLICABLE Normal 6-22 [facility] Comment on above: Performed By: #### 1 0165 #### [facility] [place] [address] Millinery Teacher: Jairo Aceves MD Calcium [Mass/Vol] 9.9 mg/dL Normal 8.6-10.3 [facility] Comment on above: Performed By: #### 1 0165 #### [facility] of [address], [address] [place] [address] Millinery Teacher: Jairo Aceves MD Chloride [Moles/Vol] 108 mmol/L Normal 98-110 [facility] Comment on above: Performed By: #### 1 0165 #### [facility] [address], [address] [place] [address] Millinery Teacher: Jairo Aceves MD CO2 [Moles/Vol] 24 mmol/L Normal 20-32 [facility] Comment on above: Performed By: #### 1 0165 #### [facility] [place] [address] Millinery Teacher: Jairo Aceves MD Creatinine [Mass/Vol] 1.15 mg/dL Normal 0.70-1.[address] [facility] Comment on above: Result Comment: For patients >49 years of age, the reference limit for Creatinine is approximately 13% higher for people identified as -Somali. Performed By: #### 1 0165 #### [facility] [address], [address] [place] [address] Millinery Teacher: Jairo Aceves MD eGFR NON-AFR. GIBRALTARIAN 66 mL/min/1.73m2 Normal > OR = 60 [facility] Comment on above: Performed By: #### 1 0165 #### [facility] [place] [address] Millinery Teacher: Jairo Aceves MD GFR/1.73 sq M.predicted among blacks MDRD (S/P/Bld) [Vol rate/Area] 76 mL/min/{1.73_m2} Normal > OR = 60 [facility] Comment on above: Performed By: #### 1 0165 #### [facility] of [place] [address] Millinery Teacher: Jario Aceves MD Glucose [Mass/Vol] 116 mg/dL High 65-99 [facility] Comment on above: Result Comment: Fasting reference interval For someone without known diabetes, a glucose value between 100 and 125 mg/dL is consistent with prediabetes and should be confirmed with a follow-up test. Performed By: #### 1 0165 #### [facility] [address], [address] [place] [address] Millinery Teacher: Jairo Aceves MD Potassium [Moles/Vol] 4.3 mmol/L Normal 3.5-5.[address] [facility] Comment on above: Performed By: #### 1 0165 #### [facility] [address], [address] [place] [address] Millinery Teacher: Jairo Aceves MD Sodium [Moles/Vol] 142 mmol/L Normal 135-146 [facility] Comment on above: Performed By: #### 1 0165 #### [facility] [address], [address] [place] [address] Millinery Teacher: Jairo Aceves MD Urea nitrogen [Mass/Vol] 14 mg/dL Normal 7-25 [facility] Comment on above: Performed By: #### 1 0165 #### [facility] [address], [address] [place] [address] Millinery Teacher: Jairo Aceves MD Vital Signs Date Time Vital Sign Value Performing Clinician Kiran edgardo 04-21-2024 11:030400 Body height 185.4 cm Sherin Jackson MD Work Phone: [facility] 04-21-2024 11:03-0400 Body mass index (BMI) [Ratio] 31.74 kg/m2 Sherin Jackson MD Work Phone: [facility] 04-21-2024 11:03-0400 Body temperature 98.1 [degF] Sherin Jackson MD Work Phone: [facility] 04-21-2024 11:03-0400 Body weight 109.09 kg Sherin Jackson MD Work Phone: [facility] 04-21-2024 11:03-0400 Diastolic blood pressure 76 mm[Hg] Sherin Jackson MD Work Phone: [facility] 04-21-2024 11:03-0400 Heart rate 59 /min [facility] 04-21-2024 11:03-0400 SaO2% (BldA) [Mass fraction] 99 % Sherin Jackson MD [facility] 04-21-2024 11:03-0400 Systolic blood pressure 145 mm[Hg] Sherin Jackson MD Work Phone: [facility] [employer] 04-09-2024 08:57-0400 Body height 185.4 cm Casey Furlong DO [facility] 04-09-2024 08:57-0400 Body mass index (BMI) [Ratio] 32.48 kg/m2 Casey Furlong DO [facility] 04-09-2024 08:57-0400 Body temperature 97.9 [degF] Casey Furlong DO [facility] 04-09-2024 08:57-0400 Body weight 111.68 kg Casey Furlong DO [facility] 04-09-2024 08:57-0400 Diastolic blood pressure 72 mm[Hg] Casey Furlong DO [facility] 04-09-2024 08:57-0400 Heart rate 69 /min Casey Furlong DO [facility] 04-09-2024 08:57-0400 SaO2% (BldA) [Mass fraction] 99 % Casey Furlong DO [facility] 04-09-2024 08:57-0400 Systolic blood pressure 118 mm[Hg] Casey Furlong DO [facility] Encounters Encounter Date Encounter Type Care Provider Facility Start: 04-21-2024 End: 04-21-2024 Office outpatient visit 25 minutes Sherin Jackson MD Work Phone: [facility] Comment on above: Adverse effect of am iodarone, initial encounter (Primary Dx); QUYNH (obstructive sleep apnea) Start: 04-21-2024 End: 04-21-2024 ambulatory SHERIN JACKSON [facility] Start: 04-09-2024 End: 04-09-2024 Assmt & care planning pt w/cognitive impairment Casey G Afton DO Work Phone: [facility] Comment on above: Mild cognitive impai rment (Primary Dx); Acute pain of left knee Start: 04-09-2024 End: 04-09-2024 ambulatory [facility] Start: 04-07-2024 End: 04-07-2024 Refill Casey Fitzgerald DO Work Phone: [facility] Start: 04-02-2024 End: 04-02-2024 ambulatory RAMONA [facility] Start: 03-28-2024 Evaluation and manag ement of inpatient [facility] Start: 03-28-2024 Evaluation and manag ement of inpatient [facility] Start: 03-27-2024 Evaluation and manag ement of inpatient [facility] Start: 03-27-2024 ambulatory [facility] Start: 03-27-2024 End: 03-28-2024 Evaluation and management of inpatient [facility] Start: 02-05-2024 End: 02-05-2024 ambulatory [facility] Start: 02-05-2024 End: 02-05-2024 ambulatory [facility] Start: 11-02-2023 End: 11-03-2023 Evaluation and management of inpatient [facility] Start: 10-04-2023 End: 10-04-2023 ambulatory [facility] Start: 10-03-2023 End: 10-03-2023 ambulatory [facility] Start: 09-03-2023 Refill Casey connor DO Work Phone: [facility] Comment on above: Mixed hyperlipidemia (Primary Dx) Start: 08-23-2023 Refill Casey connor DO Work Phone: [facility] Start: 07-23-2023 Refill Casey connor DO Work Phone: [facility] - Family [facility] Start: 07-06-2023 Refill Casey connor DO Work Phone: [facility] - [facility] Start: 06-15-2023 End: 06-16-2023 ambulatory [facility] Start: 06-14-2023 End: 06-15-2023 [facility] Start: 06-14-2023 End: 06-14-2023 [facility] Start: 05-29-2023 End: 05-29-2023 ambulatory [facility] Start: 08-23-2020 End: 08-24-2020 Patient encounter procedure NONE LISTED REQUEST Facility: Procedures Date Procedure Procedure Detail Performing Clinician Start: 04-09-2024 Follow-up visit Follow-up CASEY FITZGERALD Start: 04-09-2024 Adult depression screening assessment Casey Fitzgerald DO Work Phone: Start: 02-05-2024 Adult depression screening assessment Casey Fitzgerald DO Work Phone: Start: 06-14-2023 Adult depression screening assessment Casey Fitzgerald DO Work Phone: Plan of Treatment Date Care Activity Detail Author Start: 02-02-2031 DTaP,Tdap and Td Vaccines (3 - Td or Tdap) DTaP,Tdap and Td Vaccines (3 - Td or Tdap) [facility] Start: 04-21-2025 End: 04-21-2025 Pulmonary function test Spirometry (Flow Volume Loop) pre/post short acting bronchodilator w/ DLCO (diffusion study) Pulmonary function test Spirometry (Flow Volume Loop) pre/post short acting bronchodilator w/ DLCO (diffusion study) PFT Routine Adverse effect of amiodarone, initial encounter Expected: 04/21/2025 (Approximate), Expires: 04/21/2025 [facility] Work Phone: Comment on above: Expected: 04/21/2025 (Approximate), Expires: 04/21/2025 Start: 04-20-2025 End: 04-20-2025 Patient encounter procedure 04/20/2025 9:30 AM EDT [facility] [address] [address] Sherin Jackson MD [address] [address] [place] [address] [facility] Start: 04-09-2025 Adult BMI Screening Adult BMI Screen ing [facility] Start: 04-09-2025 Depression Screening Depression Scre ening [facility] Start: 04-09-2025 Fall Risk Screening Fall Risk Screen ing [facility] Start: 04-09-2025 Tobacco Screening Tobacco Screening [facility] Start: 02-05-2025 End: 02-05-2025 Patient encounter procedure 02/05/2025 10:20 AM EDT [facility] [address] [place] [address] [facility] Start: 02-04-2025 Adult BMI Screening Adult BMI Screen ing [facility] Start: 02-04-2025 Depression Screening Depression Scre ening [facility] Start: 02-04-2025 Fall Risk Screening Fall Risk Screen ing [facility] Start: 02-04-2025 Medicare Annual Well ness Visit Medicare Annual Wellness Visit [facility] Start: 11-01-2024 Tobacco Screening Tobacco Screening [facility] Start: 06-24-2024 Screening for malign ant neoplasm of colon Colon Cancer Screening 5 Year Sigmoidoscopy [facility] Comment on above: Postponed from 10/22 (Not Indicated) Start: 06-14-2024 Adult BMI Screening Adult BMI Screen ing [facility] Start: 06-14-2024 Depression Screening Depression Scre ening [facility] Start: 06-14-2024 Fall Risk Screening Fall Risk Screen ing [facility] Start: 06-14-2024 Tobacco Screening Tobacco Screening [facility] Start: 05-28-2024 End: 05-28-2024 Patient encounter procedure 05/28/2024 9:00 AM EST [facility] [address] [place] [address] Casey Fitzgerald, [address] [place] [address] [facility] Start: 04-21-2024 End: 04-21-2024 Patient encounter procedure 04/21/2024 10:45 AM EDT Office Visit [facility] [address] [facility] [address] [place] [id number] Sherin Jackson MD [address] [address] [facility] Start: 04-09-2024 End: 04-09-2024 Patient encounter procedure 04/09/2024 9:00 AM EDT Office Visit [facility] [address] [place] [address] Casey Fitzgerald DO [address], [place] [address] [facility] Start: 02-24-2024 COVID-19 Vaccine ( season) COVID-19 Vaccine () [facility] Start: 02-24-2024 Influenza vaccination Influenza Vacc ine [facility] Start: 02-05-2024 End: 02-05-2024 Patient encounter procedure 02/05/2024 10:00 AM EDT Office Visit [facility] - Family Medicine [address] [place] [address] [facility] Internal [facility] Start: 01-31-2024 Medicare Annual Well ness Visit Medicare Annual Wellness Visit [facility] Start: 01-24-2024 Adult BMI Follow Up Plan Adult BMI F ollow Up Plan [facility] Start: 10-03-2023 End: 10-03-2023 Patient encounter procedure 10/03/2023 10:45 AM EDT Office Visit [facility] - Family Medicine [address] [place] [address] Casey Fitzgerald DO [address], [place] [address] [facility] Internal [facility] Start: 09-21-2023 End: 09-21-2023 Patient encounter procedure 09/21/2023 10:00 AM EDT Office Visit [facility] - Family Medicine [address] [place] [address] Casey Fitzgerald DO [address], [place] [address] [facility] Internal Medicine Family [facility] Start: 09-19-2023 End: 09-19-2023 Patient encounter procedure 09/19/2023 9:00 AM EDT Office Visit [facility] - Family Medicine [address] [place] [address] Casey Fitzgerald DO [address], [place] [address] [facility] - [facility] Start: 05-12-2023 COVID-19 Vaccine ( season) COVID-19 Vaccine ( season) [facility] Start: 10-23-2019 Abdominal aortic aneurysm screening Abdominal Aortic Aneurysm (AAA) Screen [facility] Immunizations Immunization Date Immunization Notes Care Provider Fa cility 03-17-2023 Influenza Vaccine, Quadrivalent, Adjuvanted Casey Furlong DO Work Phone: [facility] 03-17-2023 RSV, recombinant, protein subunit RSVpreF, adjuvant reconstituted, 0.5 mL, PF Casey Furlong DO Work Phone: [facility] 03-17-2023 influenza virus vacc ine, unspecified formulation Casey Furlong DO Work Phone: [facility] 02-19-2023 zoster vaccine recombinant Casey Furlong DO Work Phone: [facility] 11-13-2022 zoster vaccine recombinant Casey Furlong DO Work Phone: [facility] 04-05-2022 Influenza Vaccine, Quadrivalent, Adjuvanted Casey Furlong DO Work Phone: [facility] Work Phone: 03-28-2022 influenza virus vacc ine, unspecified formulation Casey Furlong DO Work Phone: [facility] 01-19-2022 Covid-19, Mrna, Lnp- s, Pf, 30 Mcg/0.3 Ml Dose, Tobi-sucrose Casey Furlong DO Work Phone: [facility] 05-10-2021 Influenza Vaccine, Quadrivalent, Adjuvanted Casey Furlong DO Work Phone: [facility] 05-09-2021 influenza, seasonal, injectable Casey Furlong DO Work Phone: [facility] 02-02-2021 tetanus toxoid, redu alexi diphtheria toxoid, and acellular pertussis vaccine, adsorbed Casey Furlong DO Work Phone: [facility] 07-14-2020 pneumococcal polysaccharide vaccine, 23 valent Casey Furlong DO Work Phone: [facility] 04-15-2020 influenza virus vacc ine, unspecified formulation Casey Furlong DO Work Phone: [facility] 06-12-2019 influenza, injectabl e, quadrivalent, preservative free Casey Furlong DO Work Phone: [facility] 03-26-2019 influenza, injectabl e, quadrivalent, preservative free Casey Furlong DO Work Phone: [facility] 01-27-2019 zoster vaccine recombinant Casey Furlong DO Work Phone: [facility] 03-28-2018 influenza, injectabl e, quadrivalent, contains preservative Casey Furlong DO Work Phone: [facility] 03-27-2018 influenza, injectabl e, quadrivalent, preservative free Casey Furlong DO Work Phone: [facility] 03-28-2017 Influenza, injectabl e, Madin Chinle Canine Kidney, preservative free, quadrivalent Casey Furlong DO Work Phone: [facility] 03-07-2016 influenza, seasonal, injectable Casey Furlong DO Work Phone: [facility] 06-03-2015 zoster vaccine, live Casey Furlong DO Work Phone: [facility] 05-31-2015 influenza, seasonal, injectable Casey Furlong DO Work Phone: [facility] 05-31-2015 pneumococcal polysaccharide vaccine, 23 valent Casey Furlong DO [facility] 04-10-2014 influenza, seasonal, injectable Casey Fitzgerald DO Work Phone: [facility] tetanus toxoid, redu alexi diphtheria toxoid, and acellular pertussis vaccine, adsorbed Casey Fitzgerald DO Work Phone: [facility] Payers Date Payer Category Payer Medicare [id number] 2022 Medicare [id number] 2022 Medicare [id number] 1959 Self-pay 1955 Unknown [id number] 2.16.8 [id number] 1954 Unknown [id number] 2.16.84 [id number] 1954 Unknown [id number] 2.16.8 [id number] 1954 Unknown [id number] 2.16.8 [id number] 1954 Unknown [id number] 2.16.84 [id number] 1954 Unknown [id number] 2.16.8 [id number] 1954 Unknown [id number] 2.16.8 [id number] 1954 Unknown [id number] 2.16.8 [id number] 1954 Unknown [id number] 2.16.8 [id number] 1954 Unknown [id number] 2.16.84 [id number] Unknown [id number] 2.16.84 [id number] Social History Date Type Detail Facility Start: 04-05-2022 End: 04-21-2024 Tobacco smoking status NHIS Ex-smoker [facility] Start: 06-25-1969 End: 06-25-1983 History of tobacco use Current smoker [facility] Start: 06-25-1969 End: 06-25-1983 History of tobacco use Cigarette Smoker [facility] Start: 04-03-2022 End: 04-05-2022 Cigarettes smoked current (pack per day) - Reported 1 [facility] Start: 04-05-2022 End: 04-21-2024 Tobacco use and exposure Smokeless tobacco non-user [facility] Start: 06-14-2023 End: 04-21-2024 Alcohol intake Current drinker of alcohol (finding) [facility] Start: 04-03-2022 End: 06-15-2023 [employer] [facility] Has the [employer], or [employer] threatened to shut off services in your home in past 12Mo No [facility] Do you belong to any clubs or organizations such as restorationism groups, unions, fraternal or athletic groups, or school groups? Yes [facility] Are you now , , , , never or living with a partner? [facility] How often to you hav e a drink containing alcohol? Monthly or less [facility] How many standard dr inks containing alcohol do you have on a typical day? 1 or 2 [facility] How often do you hav e 6 or more drinks on 1 occasion? Never [facility] How hard is it for y ou to pay for the very basics like food, housing, medical care, and heating Not very hard [facility] Adolescent depressio n screening assessment 0 [facility] Do you feel stress - tense, restless, nervous, or anxious, or unable to sleep at night because your mind is troubled all the time - these days [OSQ] Only a little [facility] Start: 04-03-2022 Education 21 [facility] Start: 04-04-2022 Alcohol Comment Occasional [facility] Start: 1955 Sex Assigned At Male [facility] Start: 12-24-2018 Gender identity Identifies as male gender (finding) [facility] Start: 12-24-2018 Sexual orientation Heterosexual (finding) [facility] Start: 01-28-2015 Sex Male (finding) [facility] Medical Equipment Procedure Code Equipment Code Equipment Origin al Text Equipment Identifier Dates Hip Dep Pf Cerm/ Cerm Construct - [id number] Start: 03-26-2018 Delta Cer Head 1 08/08 36mm +5 Hd Fem 36mm +5mm 06/07 Tpr - Sna - [id number] Start: 03-26-2018 Scr Canc Hip Cnn Gription 20mm Pinn Can Bone Screw 6.6hca84xu - Sna - [id number] Start: 03-26-2018 Pinn Sect W/Coat Examiner tion 60mm Cup Actb 60mm Pncl Sect Srs - Sna - [id number] Start: 03-26-2018 Linr Actb 60mm 3 6mm Ntrl +4 Altrx +4 Neut [id number] - Sna - [id number] Start: 03-26-2018 Stm Fem 150mm 12 mm Crl Amt Ti Corail Amt Collar Size 12 - Sna - [id number] Start: 03-26-2018 Elmntr Hl Drlc P ncl Hip Mrthn [place] Positive Stop - Sna - [id number] Start: 03-26-2018 Clinical Notes 05-29-2023 to 04-21-2024 Sherin Jackson MD - 04/21/2024 10:45 AM EDTPatient Keegan Fitzgerald DO - 04/09/2024 9:00 AM EDT Note Date & Type Note Facility 04-21-2024 History of Present illness Narrative Images from the original note were not included. [address] [place] [id number] Patient: Carrol Vega Date of : 1955 Encounter Date: 04/21/2024 History of Present Illness: The patient is a 68 y.o. male, is here for follow up of QUYNH and dyspnea. He would still wake up at 3am if not wearing mask. Snoring noted. Mask interface: FFM [] Epistaxis [] Aerophagia [x] Pressure intolerance - too much pressure [] Skin irritation [] Mask leak BT - 11pm (in bed, TV on for 15 minutes, spouse in bed, cats in bed) SHE - < 20 minutes WASO - mask leaking WT - 7am Nap - 2pm (in recliner) 30 min, daily Cleaning machine / cleaning supplies = CPAP wipes Nocturnal behaviors / RLS = dream enactment (happens when wearing mask), awaiting neurology appointment (memory impairment?) Drowsy driving = denies He has been doing well in terms of his breathing. He has had intermittent shortness of breath that he has attributed to his AFib. He recently underwent an AFib ablation. [] Cough [] Dry [] Productive [] Wheeze [x] Shortness of breath - intermittently [] Chest pain [] Lower limb swelling Supplemental oxygen = none Pulmonary regimen: Current = Seroflo (fluticasone propionate and salmeterol) 250 1 puff BID Albuterol HFA (once a month) Past = Advair 250, 1 puff BID (no missed doses), stopped due to insurance coverage Spiriva 1.25 (stopped Mar 2023, improved symptoms) Triggers: Nicotine use = quit 1983 E-cigarettes / vaping = none Second hand smoke = none Exacerbation history = Last hospitalization = none Last ER / urgent care visit = > 1 year Respiratory need for antibiotics steroids = > 1 year Physical Exam: BP 145/76 (BP Site: Right Arm, BP Postition: Sitting) Pulse 59 Temp 36.7 C (98.1 F) (Oral) Ht 185.4 cm (6' 0.99 ) Wt 109.1 kg (240 lb 8 oz) SpO2 99% BMI 31.74 kg/m General Appearance - Awake, alert, oriented, in no acute distress 02/07/2019 3:07 PM 04/16/2023 3:00 PM 04/21/2024 10:00 AM [place] Sleepiness Scale Sitting and Reading 3 2 2 Watching TV 2 2 2 Sitting inactive in a public place (theater, meeting) 1 1 0 As a passenger in a car for an hour without a break 0 1 2 Lying down in the afternoon to rest 3 3 2 Sitting and talking to someone 1 2 0 Sitting quietly after lunch (without alcohol) 1 0 1 In a car, while stopped for a few minutes in traffic 0 1 0 Total 11 12 9 PFTS FVC FEV1 DLCO 2018 5.14 (104) 3.54 (104) 23.7 (86) 2021 5.92 (121) 3.95 (119) 26.9 (100) 2023 5.61 (115) 3.81 (116) 22.5 (83) Assessment: 1. Mild obstructive lung disease (FEV1 116 %, 2023) without exacerbation 2. Dyspnea on exertion, secondary to Afib (diagnosed September 2022) 3. Obstructive sleep apnea (NAUN 16, min 89%, HST Jan 2019, BMI 32.7) on APAP 8-15 cm of water with improved compliance and benefit 4. Essential hypertension 5. Afib 6. Remote nicotine use 15-29 yo, < 15 pyh 7. Obesity, BMI 32 Plan: 1. Decreased pressure to 8-11 cm of water due to pressure intolerance 2. Continue on fluticasone propionate and salmeterol, 1 puff BID 3. Albuterol as needed 4. PFTs in 1 year 5. PAP supplies renewed 6. Follow up in 1 year Sherin Jackson MD Pulmonary and Sleep Medicine [facility] Past Medical, Family, and Social History Update: The following portions of the patient's history were reviewed and updated as appropriate: allergies, current medications, past family history, past medical history, past social history, past surgical history and problem list. Past Medical History: Diagnosis Date Abnormal stress test Actinic keratosis Allergic Demoral and Morphine Do Not Administer Anal fissure Asthma Atrial fibrillation (CMS-HCC) Back pain 1999 Benign prostatic hyperplasia Cataract 2001 Both Corneas Replaced Dental disease upper dentures Diverticulosis of large intestine DJD (degenerative joint disease) Fractures GERD (gastroesophageal reflux disease) Heart murmur Unknown HL (hearing loss) Hyperlipidemia Hypertension Neoplasm forearm skin Osteoarthritis Visual impairment reading glasses Past Surgical History: Procedure Laterality Date ADENOIDECTOMY 1961 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 APPENDECTOMY CARDIAC ELECTROPHYSIOLOGY MAPPING AND ABLATION 03/27/2024 CATARACT EXTRACTION Bilateral COLON SURGERY colonoscopy COLONOSCOPY 2013 COLONOSCOPY N/A 06/24/2019 Performed by Desmond Tate DO at [facility] COLONOSCOPY DIAGNOSTIC / SCREENING N/A 11/02/2023 Performed by Desmond Tate DO at [facility] Coronary angiogram and left ventricular gram/pressure N/A 12/18/2018 Performed by Dread Palacios MD at [facility] CARDIAC CATH LABS CYST REMOVAL on head EYE SURGERY FRACTURE SURGERY right leg INTERNAL LATERAL SPHINCTEROTOMY N/A 04/13/2020 Performed by Neal Ontiveros DO at [facility] JOINT REPLACEMENT Right REPLACEMENT TOTAL JOINT HIP Right 03/26/2018 Performed by Jr Jair Dudley DO at [facility] SINUS SURGERY SKIN BIOPSY 2016 TONSILLECTOMY Family History Problem Relation Age of Onset Heart disease Mother Heart disease Father Heart attack Father Other Sister Coronary Arteriosclerosis Lung cancer Sister Hyperlipidemia Brother Heart disease Brother 18 Hypertension Brother Lung cancer Maternal Grandmother Alcohol abuse Maternal Grandfather Cirrhosis Maternal Grandfather Current Outpatient Medications Medication Sig Dispense Refill acetaminophen (TYLENOL) 325 mg tablet Take 2 tablets (650 mg total) by mouth every 6 (six) hours as needed for pain. albuterol (PROVENTIL HFA;VENTOLIN HFA) 90 mcg/actuation inhaler Inhale 2 puffs every 6 (six) hours as needed for wheezing. 18 g 6 amiodarone (PACERONE) 200 mg tablet Take 1 tablet (200 mg total) by mouth in the morning. 90 tablet 6 atorvastatin (LIPITOR) 80 mg tablet TAKE 1 TABLET BY MOUTH ONCE DAILY 100 tablet 2 bisoprolol-hydroCHLOROthiazide (ZIAC) 10-6.25 mg per tablet take 1 tablet by mouth daily 100 tablet 2 docusate sodium (COLACE) 100 mg capsule Take 1 capsule (100 mg total) by mouth in the morning and 1 capsule (100 mg total) before bedtime. ELIQUIS 5 mg tablet TAKE 1 TABLET BY MOUTH IN THE MORNING AND 1 TABLET BEFORE BEDTIME 200 tablet 2 famotidine (PEPCID) 20 mg tablet Take 1 tablet (20 mg total) by mouth in the morning and 1 tablet (20 mg total) before bedtime. fluticasone propion-salmeteroL (ADVAIR) 250-50 mcg/dose DISKUS Ok to give advair 250/25 (not able to electronically prescribe this dose). 1 puff twice a day, 90 day supply x 4 refills 180 each 3 fluticasone propionate (FLONASE) 50 mcg/actuation nasal spray Administer 2 sprays into each nostril in the morning and 2 sprays before bedtime. aosna-lr-8-but-cey-avpdooh-ast 1,000-230-60 mg capsule Take by mouth daily. levocetirizine (XYZAL) 5 mg tablet Take 1 tablet (5 mg total) by mouth every evening. levothyroxine (SYNTHROID, LEVOTHROID) 25 MCG tablet TAKE 1 TABLET BY MOUTH IN THE MORNING 100 tablet 2 lisinopriL (PRINIVIL,ZESTRIL) 10 mg tablet take 1 tablet by mouth daily 100 tablet 2 elzhcllx-lowo-CY-calcium &mins (THERAGRAN-M) 9 mg iron-400 mcg tablet Take 1 tablet by mouth in the morning. pantoprazole (PROTONIX) 40 mg EC tablet Take 1 tablet (40 mg total) by mouth. sucralfate (CARAFATE) 1 gram tablet Take 1 tablet (1 g total) by mouth. No current facility-administered medications for this visit. (All medications reviewed and updated by provider since last office visit or hospitalization) Allergies: Demerol [meperidine], Morphine, and Morphine sulfate Tobacco History: Social History Tobacco Use Smoking Status Former Current packs/day: 0.00 Average packs/day: 1 pack/day for 14.0 years (14.0 ttl pk-yrs) Types: Cigarettes Start date: 06/25/1969 Quit date: 06/25/1983 Years since quittin.8 Smokeless Tobacco Never (If patient a smoker, smoking cessation counseling offered) Social History: Social History Substance and Sexual Activity Alcohol Use Yes Alcohol/week: 5.0 standard drinks of alcohol Types: 5 Shots of liquor per week Comment: Occasional documented in this encounter [facility] 04-21-2024 Instructions Sherin Jackson MD - 04/21/2024 10:45 AM EDT 1. Decreased pressure to 8-11 cm of water 2. Continue on fluticasone propionate and salmeterol, 1 puff BID 3. Albuterol as needed 4. PFTs in 1 year 5. PAP supplies renewed 6. Follow up in 1 year documented in this encounter [facility] 04-09-2024 History of Present illness Narrative Subjective Patient ID: Carrol Vega is a 68 y.o. male. Carrol presents today for a cognitive evaluation. He had an abnormal 6 it and wants to investigate it further. He is here with his . She has noticed that he has been more forgetful. Denies depression, behavioral issues but says he gets mad quicker. He does pay some bills and has forgotten to pay them from time to time. He still drives. He has not gotten lost. 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 He has not had any issues at work. His leftt knee started hurting out of the blue while at work. There was no injury. It is feeling a little better since and pain comes and goes. He has used topical agents with mild relief. When he has pain it is down below his kneecap area. Pain is sharp at times. Memory Loss Patient reports onset of memory loss was last year. Onset quality is gradual. Behavorial problems for memory loss include agitation (Gets madder easier). Patient does not have the following behavorial problems associated with memory loss: paranoia, suspiciousness, hallucinations or delusions. The family and/or patient does not have the following concerns associated with memory loss: medication errors, wandering, driving, cooking or preparing meals. The family monitors medication usage. Patient lives with spouse. Patient lives in a/an own home. The following portions of the patient's history were reviewed and updated as appropriate: allergies, current medications, past family history, past medical history, past social history, past surgical history, problem list, and medication reconciliation was completed including current medication and post discharge medication. Review of Systems Cardiovascular: Negative. Gastrointestinal: Negative. Musculoskeletal: Positive for arthralgias. Neurological: Negative. Psychiatric/Behavioral: Positive for memory loss. Objective Physical Exam Vitals reviewed. Constitutional: General: He is not in acute distress. Appearance: He is obese. He is not ill-appearing. HENT: Head: Normocephalic. Eyes: Extraocular Movements: Extraocular movements intact. Conjunctiva/sclera: Conjunctivae normal. Cardiovascular: Rate and Rhythm: Normal rate and regular rhythm. Pulses: Normal pulses. Heart sounds: Normal heart sounds. No murmur heard. Pulmonary: Effort: Pulmonary effort is normal. No respiratory distress. Breath sounds: Normal breath sounds. No wheezing, rhonchi or rales. Musculoskeletal: Cervical back: Neck supple. Left knee: Bony tenderness (Pain over patellar tendon and tibial plateau area when he has it) and crepitus present. No swelling, deformity, effusion, erythema, ecchymosis or lacerations. Decreased range of motion (Extension). No tenderness. No LCL laxity, MCL laxity, ACL laxity or PCL laxity.Normal alignment, normal meniscus and normal patellar mobility. Instability Tests: Anterior drawer test negative. Posterior drawer test negative. Anterior Isidra test negative. Medial Emily test negative and lateral Emily test negative. Right lower leg: No edema. Left lower leg: No edema. Lymphadenopathy: Cervical: No cervical adenopathy. Skin: General: Skin is warm. Neurological: Mental Status: He is alert and oriented to person, place, and time. GCS: GCS eye subscore is 4. GCS verbal subscore is 5. GCS motor subscore is 6. Cranial Nerves: Cranial nerves 2-12 are intact. Motor: Motor function is intact. No weakness, tremor, atrophy, abnormal muscle tone, seizure activity or pronator drift. Coordination: Romberg sign negative. Coordination normal. Hkrjvs-Ipxz-Asmmfn Test and Heel to Bustamante Test normal. Rapid alternating movements normal. Gait: Gait abnormal (Ambulating with a cane). Deep Tendon Reflexes: Reflex Scores: Tricep reflexes are 2+ on the right side and 2+ on the left side. Bicep reflexes are 2+ on the right side and 2+ on the left side. Brachioradialis reflexes are 2+ on the right side and 2+ on the left side. Patellar reflexes are 1+ on the right side and 1+ on the left side. Achilles reflexes are 1+ on the right side and 1+ on the left side. Comments: Reflexes not as brisk in lower extremities Positive glabellar tap. Negative root, snout, grasp and palmomental tests. Psychiatric: Attention and Perception: Attention and perception normal. Mood and Affect: Mood and affect normal. Speech: Speech normal. Behavior: Behavior normal. Behavior is cooperative. Thought Content: Thought content normal. Cognition and Memory: Cognition is impaired. Memory is not impaired. Judgment: Judgment normal. Comments: Scored 25 out of 30 on MOCA Assessment/Plan Carrol was seen today for follow-up and memory loss. Diagnoses and all orders for this visit: Mild cognitive impairment - Ambulatory referral to Neuropsychology (Non[facility]); Future He scored just 1 point below normal on his Cooper. I am going to evaluate this further with a neuro cognitive evaluation. He may need further workup. Just had a CMP and CBC done and they were okay. His thyroid has been checked and is at goal. We will consider an MRI if cognitive evaluation reveals cognitive impairment. We did a medication reconciliation and he will stop the esomeprazole. 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 No other medications appear to be impacting his cognition. He is probably a fast score of 2 or 3. He had some issues with paying bills little more than usual lately. He has advanced directives in place. Acute pain of left knee Etiology unclear for acute knee pain. Possibly arthritis. Continue topical agents and use Tylenol for pain. Check x-ray if no better. documented in this encounter [facility] [employer] 04-02-2024 Note Pt is here for a fol low up, s/p a fib ablation. Pt denies sob, chest pains, and palpatations Review of Systems Constitutional: Positive for malaise/fatigue. HENT: Positive for tinnitus. Cardiovascular: Positive for dyspnea on exertion. Respiratory: Positive for snoring. Musculoskeletal: Positive for joint pain. Neurological: Positive for dizziness. All other systems reviewed and are negative. [facility] 04-02-2024 Note Cardiovascular Medic [facility] SUBJECTIVE Chief Complaint Patient presents with Atrial Fibrillation Hypertension Carrol Vega is a 68 y.o. male here for follow-up after his recent a.fib ablation procedure. HPI PMHx: a.fib s/p ablation, Hypertension, asthma, prediabetes, abnormal stress test with normal cors and minimal luminal irregularities 2018 He has been feeling well since his procedure. Denies c/o CP, dyspnea, orthopnea, PND, LE edema, dizziness/LH, palpitations, syncope. Patient Active Problem List Diagnosis Abnormal stress [...] cervical Paroxysmal atrial fibrillation (CMS/HCC) Acquired hypothyroidism A-fib (CMS/HCC) Past Medical History: Diagnosis Date Adverse effect of anesthesia CONFUSION Arrhythmia Arthritis Asthma BPH (benign prostatic hyperplasia) CHF (congestive heart failure) (CMS/HCC) Colon polyp DDD (degenerative disc disease), cervical Disease of thyroid gland Diverticulosis GERD (gastroesophageal reflux disease) Hyperlipidemia Hypertension Interstitial lung disease (CMS/HCC) OA (osteoarthritis) Paroxysmal atrial fibrillation (CMS/HCC) Family History Problem Relation Name Age of Onset Heart attack Mother Heart attack Brother Social History Tobacco Use Smoking status: Former Types: Cigarettes Quit date: 1983 Years since quittin.8 Smokeless tobacco: Never Substance Use Topics Alcohol use: Yes Comment: occasional Drug use: Not Currently Allergies Allergen Reactions Meperidine Hives, Shortness of breath and Swelling Morphine Palpitations ROS Constitutional: Positive for malaise/fatigue. HENT: Positive for tinnitus. Cardiovascular: Positive for dyspnea on exertion. Respiratory: Positive for snoring. Musculoskeletal: Positive for joint pain. Neurological: Positive for dizziness. All other systems reviewed and are negative. OBJECTIVE Visit Vitals BP 123/83 Pulse 63 Ht 1.854 m (6' 1 ) Wt 112 kg (246 lb) SpO2 96% BMI 32.46 kg/m??? Smoking Status Former BSA 2.4 m??? Medications: Current Outpatient Medications: albuterol 90 mcg/actuation inhaler, Inhale 2 puffs every 6 (six) hours if needed for wheezing., Disp: , Rfl: amiodarone (Pacerone) 200 mg tablet, Take 1 tablet (200 mg) by mouth once daily as directed. (Patient taking differently: Take 200 mg by mouth in the morning.), Disp: 90 tablet, Rfl: 2 apixaban (Eliquis) 5 mg tablet, Take 5 mg by mouth twice a day., Disp: , Rfl: atorvastatin (Lipitor) 80 mg tablet, Take 80 mg by mouth in the morning., Disp: , Rfl: bisoproloL-hydrochlorothiazide (Ziac) 10-6.25 mg tablet, Take 1 tablet by mouth in the morning., Disp: , Rfl: docusate sodium (Colace) 100 mg capsule, Take 200 mg by mouth two times daily. Pt states he takes 250mg tab, one tablet in AM and one tablet in PM, Disp: , Rfl: esomeprazole (NexIUM) [address] capsule, Take 20 mg by mouth before breakfast. Do not open capsule., Disp: , Rfl: famotidine (Pepcid) 20 mg tablet, Take 1 tablet (20 mg) by mouth two times daily., Disp: 60 tablet, Rfl: 0 fluticasone propion-salmeteroL (Advair Diskus) 250-50 mcg/dose diskus inhaler, Inhale 1 puff in the morning and at bedtime., Disp: , Rfl: opxzk-cg-9-elf-pcc-fcjqpxy-ast 1,000-230-60 mg capsule, Take 1 capsule by mouth in the morning., Disp: , Rfl: levocetirizine (Xyzal) 5 mg tablet, Take 5 mg by mouth in the evening., Disp: , Rfl: levothyroxine (Synthroid, Levoxyl) 25 mcg tablet, Take 25 mcg by mouth before breakfast., Disp: , Rfl: lisinopril 10 mg tablet, Take 10 mg by mouth in the morning., Disp: , Rfl: meclizine (Antivert) 25 mg tablet, Take 25 mg by mouth 1 (one) time each day., Disp: , Rfl: multivitamin (Theragran-M) 9 mg iron-400 mcg tablet, Take 1 tablet by mouth in the evening., Disp: , Rfl: pantoprazole (ProtoNix) 40 mg EC tablet, Take 1 tablet (40 mg) by mouth before breakfast. Do not crush, chew, or split., Disp: 30 tablet, Rfl: 0 sucralfate (Carafate) 1 gram tablet, Take 1 tablet (1 g) by mouth before breakfast, before lunch, and before evening meal., Disp: 90 tablet, (more content not included)... [facility] 03-27-2024 Note 03/27/24 1638 Admission Assessment Questions [...] Status Interested Does the patient have a foster care case manager assigned to them through their insurance? [...] link and activate MyChart? MyChart already active [facility] 03-27-2024 Note Patient: Carrol sung Procedure Summary Date: 03/27/24 Room / Location: [facility] (Cath) Anesthesia Start: 825 Anesthesia Stop: 1203 Procedure: Ablation a-fib paroxysmal Diagnosis: Paroxysmal atrial [...] no known notable events for this encounter. [facility] 03-27-2024 Note Patient: Carrol sung Procedure Summary Date: 03/27/24 Room / Location: [facility] EP / [facility] HV [facility] (Cath) Anesthesia Start: 825 Anesthesia [...] and follow verbal commands throughout transport process [facility] 03-27-2024 Note ATRIAL FIBRILLATION ABLATION PROCEDURE NOTE [...] Coumadin ridge. Esophagus was mapped using the [employer] 3D mapping software and noted to be [...] of 35.6C. No (more content not included)... [facility] 03-27-2024 Note Airway Date/Time: 03/27/2024 8:59 AM Urgency: elective Airway not difficult General Information and Staff Patient location during procedure: [place] Anesthesiologist: Dwight Cortez MD Resident/ROOFING TILE SORTER/CAA: Columba Del Cid MD Performed: anesthesiologist Learner [...] 1 Number of other approaches attempted: 0 [facility] 02-05-2024 Note [facility] Consult Note Reason [...] on file Intimate Partner Violence: Unknown (08/16/2023) [facility] Fear of Current or [...] puff in the morning and at bedtime. [id number] 1,000-230-60 mg capsule Take 1 capsule by [...] no xanthelasma ENM (more content not included)... [facility] 05-29-2023 Note [facility] Consult Note Reason [...] puff in the morning and at bedtime. [id number]-ast 1,000-230-60 mg capsule Take 1 capsule by [...] jugular venous pr (more content not included)... [facility] Evaluation note Diagnosis Mixed hyperlipidemia- Primary documented [facility] this [facility] Diagnosis Mild cognitive impairment- Primary Mild cognitive impairment, so stated Acute pain of left knee [facility] encounter [facility] Diagnosis Adverse effect of amiodarone, initial encounter- Primary QUYNH (obstructive sleep apnea) Obstructive sleep apnea (adult) (pediatric) documented in this encounter [facility] filedocumented in [facility] encounter [facility] SystemInstructionsNot on filedocumented in this encounter [facility] filedocumented in this encounter [facility] Summary Purpose Family History No Family History Records FoundNo Family History Records FoundNo Family History Records FoundNo Family History Records FoundNo Family History Records FoundNo Family History Records Found Advance Directives No Advanced Directives Records FoundDocuments on File Type Date Recorded 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 Will 04/05/2018 2:58 PM Date Activated Date Inactivated Comments 03/26/2018 12:34 PM 03/29/2018 1:21 PM Latest Code Status on File Code Status Date Activated Date Inactivated Comments Full Code 03/26/2018 12:34 PM 03/29/2018 1:21 PM Documents on File Type Date Recorded 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 Reba Davis Will 04/05/2018 2:58 PM Date Activated Date Inactivated Comments 03/26/2018 12:34 PM 03/29/2018 1:21 PM Additional Source Comments INFORMATION SOURCE (unrecogn ized section and content) DATE CREATED AUTHOR 08/19/2020 [facility] DATE CREATED AUTHOR AUTHOR'S ORGANIZ ATION 08/25/2021 [facility] DATE CREATED AUTHOR AUTHOR'S ORGANIZ ATION 10/05/2023 [facility] DATE CREATED AUTHOR AUTHOR'S ORGANIZ ATION 11/09/2023 [facility] DATE CREATED AUTHOR AUTHOR'S ORGANIZ ATION 04/20/2024 [facility] DATE CREATED AUTHOR AUTHOR'S ORGANIZ ATION 04/22/2024 [facility] (unrecognized sect ion and content) No Status Records FoundNo Status Records FoundNo Status Records FoundNo Status Records FoundNo Status Records Found Reason for Visit (unrecogniz ed section and content) Reason Comments Med Refill Reason Comments Follow-up Memory Loss Reason Comments Shortness of Breath PFT 04/30/23 Sleep Apnea DME:[facility] Care Teams (unrecognized sec tion and content) Attendant Arcade Relationship Specialty Start Date End Date Casey Fitzgerald DO [address], [facility] [address] PCP - General Family Medicine 02/26/18 Attendant Arcade Relationship Specialty Start Date End Date Casey Fitzgerald DO [address], [facility] [address] PCP - General Family Medicine 02/26/18 Attendant Arcade Relationship Specialty Start Date End Date Casey Fitzgerald DO [address] [place] [address] PCP - General Family Medicine 02/26/18 Attendant Arcade Relationship Specialty Start Date End Date Casey Fitzgerald DO [address] [address] PCP - General Family Medicine 02/26/18 Attendant Arcade Relationship Specialty Start Date End Date Casey Fitzgerald DO [address] [place] [address] PCP - General Family Medicine 02/26/18 FOR [...] BE BASED ON THE PRIMARY CLINICAL RECORDS. [facility]. provides no warranty or guarantee of the accuracy or completeness of information in this document.
[2024-04-22 11:15] LABS: Anion Gap 16.3; BUN Creatinine Ratio 11.4; Calcium 9.2 mg/dL (8.5-10.1); Carbon Dioxide 24.5 mmol/L (21.0-32.0); Chloride 109 mmol/L (98-107); Estimated GFR (African America 57 (>=60 mL/min/1.73m^2); Estimated GFR (Non-African Ame 47 (>=60 mL/min/1.73m^2); Glucose 118 mg/dL (74-106); Potassium 3.8 mmol/L (3.5-5.1); Sodium 146 mmol/L (136-145)
== END 2024-04-22 10:17 | disposition home or self-care (01) ==
PROVIDERS: PCP Family Medicine
DX: I11.0 Hypertensive heart disease with heart failure (principal)
CPT/HCPCS: 36415; 80048

== ENCOUNTER 2025-04-02 09:00 | Outpatient (RCR) | payer MEDICARE, SELFPAY | END 2025-04-24 23:59 | disposition home or self-care (01) | LOC: MM 09:00 | PROVIDERS: PCP Family Medicine; Visit Provider Internal Medicine | DX: Z51.81 Encounter for therapeutic drug level monitoring (principal); Z79.01 Long term (current) use of anticoagulants; I48.0 Paroxysmal atrial fibrillation | CPT/HCPCS: 85610; G0463 ==

== ENCOUNTER 2025-04-25 | Outpatient (RCR) | payer MEDICARE, SELFPAY | END 2025-05-24 23:59 | disposition home or self-care (01) | LOC: MM | PROVIDERS: PCP Family Medicine; Visit Provider Internal Medicine | DX: Z51.81 Encounter for therapeutic drug level monitoring (principal); Z79.01 Long term (current) use of anticoagulants; I48.0 Paroxysmal atrial fibrillation | CPT/HCPCS: 85610; G0463 ==

== ENCOUNTER 2025-05-25 10:58 | Outpatient (RCR) | payer MEDICARE, SELFPAY | END 2025-06-24 12:44 | disposition home or self-care (01) | LOC: MM 10:58 | PROVIDERS: PCP Family Medicine; Visit Provider Internal Medicine | DX: Z51.81 Encounter for therapeutic drug level monitoring (principal); Z79.01 Long term (current) use of anticoagulants; I48.0 Paroxysmal atrial fibrillation | CPT/HCPCS: 85610; G0463 ==